=== PATIENT | female | born 1965 | race African-American/Black ===

== ENCOUNTER 2025-08-07 12:30 | Outpatient (AMB) | payer OTHER, SELFPAY ==
[2025-08-07 12:48] VITALS: BP 132/78; PULSE 74; O2SAT 96; BMI 37.9
--- NOTE | 2025-08-07 12:48 | A.OFFVIS_ITS ---
Vital Signs 08/07/25 12:48 Height 5 ft 5 in Weight 227 lb 8.273 oz BMI 37.9 BP 132/78 Blood Pressure Location Lt brachial Position Sitting Pulse 74 Pulse Source Pulse Oximeter Pulse Oximetry (%) 96 Oxygen Delivery Method Room Air Intake Visit Reasons: Joint pain elev esr Intake Note: Patient is a new patient externally referred by Hubert Henry for joint pain/elevated ESR. She states the pain is everywhere for years, she is taking Gabapentin prescribed by PCP. Endocrinology Nurse Required: No Accompanied by: Self / Same As Patient Allergies clonidine Adverse Reaction (Mild, Verified 07/24/25 11:50) insomnia/nightmares Medication List - Last Reconciled 08/07/25 by Noa Louis MD acetaminophen 650 mg PO Q6H PRN albuterol sulfate 90 mcg/actuation (Ventolin HFA) 2 puffs inhalation Q4-6H PRN atorvastatin (Lipitor) 40 mg PO DAILY buspirone 10 mg PO BID calcium carbonate (Ulises-Gest Antacid) 200 mg PO DAILY PRN cholecalciferol (vitamin D3) 25 mcg PO DAILY ferrous sulfate 325 mg PO DAILY folic acid 1 mg PO DAILY furosemide 20 mg PO DAILY levothyroxine 137 mcg PO QAM lorazepam 1 mg PO Q6H losartan 100 mg PO DAILY mecobalamin (vitamin B12) 1,000 mcg PO DAILY mirtazapine 15 mg PO BEDTIME potassium chloride ER 10 mEq PO BID pregabalin 200 mg PO BID quetiapine 50 mg PO TID HPI Comments Details: 60-year-old female wiht history of hypertension, hypothyroidism coming in for new patient evaluation for generalized body pain referred by her PCP. Of note she was in the ICU for six-months. She was admitted on Aug 03 2024 at [facility] and then was in rehab for 2 months She states the joint pain started 3 years ago, mostly in feet and hands. She also states she has pain in lower back, she had a surgery in the lower back 6 years ago at [facility]. She also had pain in shoulders and hips. undergoing OT for shoulders Endorses morning stiffness in the shoulders mostly for 1 hour. She has alot of weakness in the muscles , difficulty walking. She states she has numbness and tingling in the hands and feet with burning very bothersome. she cannot sleep at night with multiple nighttime awakenings. She has not tried prednisone. She tried naproxen for 7 days which helped.She takes pregabalin 200mg bid Joint pain has been getting worse in the past year. ros: no oral ulcers, no photosensitivity endorses hairfall, no IBD no dry eyes , she endorses dry mouth. No Raynaud's phenomena no blood clots, she endorses headaches 2x 3times a week, and also states her vision gets blurry she states it takes half an hour for headache to go away , she reports when blood pressure is high she gets the headaches. lately headaches have subsided blood pressure is under control no jaw claudication FH: no family history of autoimmune disease Most notable labs include ESR 74, negative CRP, negative RICCO. Vital signs reviewed Physical Examination CONSTITUITIONAL Patient alert and cooperative. Well appearing and in no apparent painful distress HEENT Conjunctiva and sclera clear. No lymphadenopathy. CHEST/RESPIRATORY SYSTEM Normal respiratory effort and able to speak in complete sentences. Clear to auscultation bilaterally. No crackles, rales, rhonchi, wheezes heard. CARDIAC SYSTEM Regular rate and rhythm. S1 and S2 heard no murmurs. temporal pulses intact bilaterally. MSK Hands * Right Hand: Able to make a fist. No swelling or tenderness to palpation of the MCPs, PIPs or DIPs. No deformities noted. * Left Hand: Able to make a fist. No swelling or tenderness to palpation of the MCPs, PIPs or DIPs. No deformities noted. 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 No swelling or TTP * Left Wrist: Full ROM to flexion and extension. No swelling or TTP Elbows * Right Elbow: Full ROM. No swelling or TTP. No TTP of the medial epicondyle. No TTP of the lateral epicondyle * Left Elbow: Full ROM. No swelling or TTP. No TTP of the medial epicondyle. No TTP of the lateral epicondyle Shoulders * Right shoulder: Limited range of motion of the right shoulder diminished strength of the right shoulder 4/5 * Left shoulder: Limited range of motion of the right shoulder diminished strength of the right shoulder 4/5 Hips * Right hip: Limited range of motion, limited range of motion on internal external rotation with pain * Left hip: Limited range of motion Hip bursa: Mild tenderness elicited bilaterally Knees * Right knee: Limited range of motion no swelling noted * Left knee: Limited range of motion no swelling noted Ankles * Right ankle: Good ankle dorsiflexion and plantar flexion. No swelling. No TTP of the ankle joint * Left ankle: Good ankle dorsiflexion and plantar flexion. No swelling. No TTP of the ankle joint Feet * Right foot: Negative squeeze test * Left foot: Negative squeeze test Tender points? * fibromyalgia tender points positive bilateral trapezius, supraspinatus, chest wall tenderness elicited, inner elbow tenderness and inner knee tenderness elicited SKIN No rashes PFSH Medical History (Updated 08/07/25 @ 13:41 by Noa Louis MD) Muscle spasm Muscle weakness Nausea Cough Shortness of breath Excessive thirst Internal bleeding Night sweats Weakness Fatigue Swollen leg Surgical History (Updated 08/07/25 @ 12:58 by Tiffani Sheridan CMA) Hx of abdominal surgery Family History (Updated 08/07/25 @ 12:59 by Tiffani Sheridan CMA) Mother Diabetes Social History Alcohol intake: current Alcohol intake frequency: holidays/special occasions only Patient Tobacco Use Status: Current everyday Tobacco user Tobacco use type: Cigarette e-Cigarette/Vaping Use: Never Used Physical Exam Vital Signs: BMI result Body Mass Index 37.9 Assessment & Plan Assessment & Plan (1) Polyarthralgia: Code(s): M25.50 - Pain in unspecified joint Category: Medical Plan: Patient presents with generalized joint aches, joint pain is mostly located in the hands, PIPs MCPs, bilateral shoulders, lower back, hips, and knees along with pain in the feet. Patient reports that she has numbness tingling and burning in the hands and feet. Differential diagnosis of this include inflammatory causes of joint pain like RA, PMR versus noninflammatory causes like OA and wear and tear arthritis. She was also in the ICU for 6 months, she may have post ICU muscle weakness She also has a component of fibromyalgia given her poor sleep and diffuse tender points on physical exam. Questions for GCA were also asked which were negative For further evaluation, we will obtain x-rays of her hands bilaterally, shoulders bilaterally and x-rays of her SI joint . I will repeat inflammatory markers including ESR CRP, will obtain arthritis panel RF ,CCP ,uric acid, CK aldolase for further evaluation of her joint pain. Patient states that she had improvement with naproxen, I will prescribe her celecoxib 100 mg daily for relief of her joint pain. She is to continue scheduled pregabalin and acetaminophen as needed We will see her back in 3 weeks to discuss the results of her blood work and x- rays and further management (2) Muscle weakness: Code(s): M62.81 - Muscle weakness (generalized) Category: Medical (3) Fibromyalgia: Code(s): M79.7 - Fibromyalgia Category: Medical Plan Patient presents with generalized joint aches, joint pain is mostly located in the hands, PIPs MCPs, bilateral shoulders, lower back, hips, and knees along with pain in the feet. Patient reports that she has numbness tingling and burning in the hands and feet. Differential diagnosis of this include inflammatory causes of joint pain like RA, PMR versus noninflammatory causes like OA and wear and tear arthritis. She was also in the ICU for 6 months, she may have post ICU muscle weakness She also has a component of fibromyalgia given her poor sleep and diffuse tender points on physical exam. Questions for GCA were also asked which were negative For further evaluation, we will obtain x-rays of her hands bilaterally, shoulders bilaterally and x-rays of her SI joint I will repeat inflammatory markers including ESR CRP, will obtain arthritis panel RF ,CCP ,uric acid, CK aldolase for further evaluation of her joint pain. Patient states that she had improvement with naproxen, I will prescribe her celecoxib 100 mg daily for relief of her joint pain. She is to continue scheduled pregabalin and acetaminophen as needed We will see her back in 3 weeks to discuss the results of her blood work and x- rays and further management Orders: Orders Erythrocyte Sedimentation Rate Today M25.50 - Pain in unspecified joint Cyclic Citrullinated Peptide Today R76.0 - Raised antibody titer XR Hand Bilat min 3v Today M25.50 - Pain in unspecified joint XR sacroiliac joint min 3V Today M25.50 - Pain in unspecified joint XR Shoulder Osmin min 2V Today M25.50 - Pain in unspecified joint Aldolase Today M25.50 - Pain in unspecified joint, M62.81 - Muscle weakness (generalized) C Reactive Protein Today M25.50 - Pain in unspecified joint Complete Blood Count Auto Diff Today M25.50 - Pain in unspecified joint Comprehensive Met. Panel Today M25.50 - Pain in unspecified joint Uric Acid Today M25.50 - Pain in unspecified joint Rheumatoid Factor Today R76.0 - Raised antibody titer Creatine Kinase Total Today M62.81 - Muscle weakness (generalized) Thyroid Stimulating Hormone Today R76.0 - Raised antibody titer Thyroid Peroxidase Antibodies Today R76.0 - Raised antibody titer Thyroglobulin Antibodies Today R76.0 - Raised antibody titer Coding Level of Care Code New Pt Level 4 (82028) Diagnoses Polyarthralgia M25.50 Muscle weakness M62.81 Fibromyalgia M79.7
== END 2025-08-07 13:34 | disposition home or self-care (01) ==
LOC: HO.RHES 12:31
PROVIDERS: PCP Internal Medicine; Visit Provider Student in an Organized Health Care Education/Training Program
DX: M25.50 Pain in unspecified joint (principal); M62.81 Muscle weakness (generalized); M79.7 Fibromyalgia
CPT/HCPCS: 99204

== ENCOUNTER 2025-08-07 12:30 | Outpatient (REF) | payer OTHER, SELFPAY ==
[2025-08-07 18:12] LABS: MANUAL DIFF FLAG NO
[2025-08-07 18:20] LABS: Hematocrit 44.7 % (37.0-47.0); Hemoglobin 14.2 g/dl (12.0-16.0); Imm Gran Abs Auto 0.02 X10*3/uL (0.00-0.03); Imm Gran Pct Auto 0.3 % (0.0-0.4); Lymphocytes Absolute Auto 3.6 X10*3/uL (1.2-4.9); Mean Corpuscular HGB Conc 31.8 g/dl (31.0-35.0); Mean Corpuscular Hemoglobin 27.7 pg (27.0-33.0); Mean Corpuscular Volume 87.1 fL (80.0-98.0); NRBC Abs Auto 0.000 X10*3/uL (0.0-0.012); NRBC Pct Auto 0.0 /100WBC (0.0-0.2); Platelet Count 345 X10*3/uL (160-400); Red Blood Count 5.13 X10*6/uL (4.20-5.50); White Blood Count 7.0 X10*3/uL (4.8-10.8)
[2025-08-07 18:42] LABS: Alanine Aminotransferase 18 U/L (0-31); Albumin Level 4.1 g/dL (3.5-5.0); Alkaline Phosphatase 184 U/L (39-117); Anion Gap 12 (12-20); Aspartate Amino Transferase 31 U/L (5-31); Blood Urea Nitrogen 22 mg/dL (9-16); Calcium 9.0 mg/dL (8.4-10.2); Carbon Dioxide 25 mmol/L (22-29); Chloride 108 mmol/L (96-108); Estimated Glomerular Filt Rate > 60; Potassium 5.4 mmol/L (3.3-5.1); Sodium 140 mmol/L (135-145); Total Protein 7.5 g/dL (6.5-8.0); Uric Acid 7.6 mg/dL (2.4-5.7)
[2025-08-07 19:02] LABS: Thyroid Stimulating Hormone 1.38 uIU/mL (0.32-4.0)
[2025-08-08 20:34] LABS: Thyroglobulin Antibodies <1 IU/mL (< or = 1)
== END 2025-08-07 12:31 | disposition home or self-care (01) ==
LOC: HO.HKASLDS 12:30
PROVIDERS: PCP Internal Medicine; Visit Provider Student in an Organized Health Care Education/Training Program
DX: M25.50 Pain in unspecified joint (principal); M62.81 Muscle weakness (generalized); M79.7 Fibromyalgia; R76.0 Raised antibody titer
CPT/HCPCS: 36415; 80053; 82085; 82550; 84443; 84550; 85025; 85652; 86140; 86200; 86376; 86431; 86800; 99202

== ENCOUNTER 2025-08-10 10:06 | Outpatient (REF) | payer OTHER, SELFPAY ==
--- OUTSIDE RECORDS SUMMARY | 2025-06-03 16:00 | XMS_ITS ---
Author Organization [facility] Address [address] [place] [address] Care Team Providers Care Freelance Web Designer Name Role Phone Hubert Henry Primary Care [...] review and pick correct strength[facility]formula [facility]ion [facility]. If intended option is [...] review and pick correct strength-formula tion from [employer] options. If intended option is not shown, [...] review and pick correct strength-formula tion from [employer] options. If intended option is not shown, [...] review and pick correct strength-formula tion from [employer] options. If intended option is not shown, discontinue and re-order from Quick Search* Not-Taking Acetaminophen-Codeine 300-30 MG 1 tab(s) orally every 6 hours for 7 days 4 Not-Taking Cholecalciferol 25 MCG 1 TAB(S) ORALLY ONCE A DAY for 90 DAYS *Please review and pick correct strength-formula tion from [employer] options. If intended option is not shown, discontinue and re-order from Quick Search* 4 Not-Taking Protonix 40 MG 1 tab(s) orally twice a day for 30 days 4 Not-Taking Social History Sex Assigned At : Social History Observation Description Sex Assigned At Female Encounters Encounter Location Date Provider Diagnosis [address] [address] 06/03/2025 Provider Migration Chronic obstructive pulmonary disease, [...] review and p ick correct strength-formulation from [employer] options. If intended option is not shown, [...] Details Provider Name:Hubert Henry, 09/01/2025 10:20:00 AM, [address] [place] [address], [phone], Progress Notes * Sandra SANCHEZDOB:1965 ( 60 yo F)Acc No.[id number]:06/03/2025 Patient: Sandra KURTZ Provider: :1965 A ge:59 Y S ex:Female Date:06/03/2025 Address:[address] [place], [place] [phone] Pcp:Hubert Henry Subjective: * Chief Complaints: * [...] *Please review and pick correct strength-formulation from [employer] options. If intended option is not shown, [...] *Please review and pick correct strength-formulation from [employer] options. If intended option is not shown, [...] *Please review and pick correct strength-formulation from [employer] options. If intended option is not shown, [...] Electronic signature of Prov ider Migration on 08/10/2025 at 02:51 PM EST Sign off status: Pending * Provider: Date: 0 06/03/2025 Generated for Nury wing/Hamilton/Mona on: 10/10/2024 02:51 PM EST
--- NOTE | ~2025-08-10 | XR_ITS ---
EXAMINATION: XR SACROILIAC JOINTS CLINICAL INFORMATION: M25.50 - Pain in unspecified joint COMPARISON: None available. TECHNIQUE: 3 views of the sacroiliac joints FINDINGS: No fracture, dislocation, or suspicious bone lesion. In the SI joints demonstrate very mild degenerative arthritis without significant periarticular sclerosis or erosions. There is hardware fusing L5 and S1 without evidence of periprosthetic complication. There is no discrete soft tissue abnormality. 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 Electronically signed by: Juan Matias MD 08/10/2025 11:46 AM [facility]
--- NOTE | ~2025-08-10 | XR_ITS ---
EXAMINATION: X-ray bilateral hands CLINICAL INFORMATION: Pain COMPARISON: None TECHNIQUE: Bilateral knees each 3 views. FINDINGS: Right hand: Bone mineralization is decreased. No visible acute fracture or dislocation. No suspicious bony lesion. Alignment is anatomic. Mild joint space narrowing of some of the interphalangeal joints of the fingers. Question small marginal erosion in the proximal medial base of the fourth proximal phalanx. No abnormal soft tissue calcification. Left hand: Bone mineralization is decreased. No acute fracture or dislocation. No suspicious bony lesion. Mild narrowing of some of the interphalangeal joints of the fingers.. No osseous erosion. No abnormal soft tissue calcification. XR/XR Hand Bilat min 3v IMPRESSION: Right hand: 1. No acute findings 2. Mild arthritis. Possible small marginal erosion in the proximal base of the fourth proximal phalanx. Left hand: 1. No acute findings 2. Mild arthritis as above Electronically signed by: Kevin King MD 08/10/2025 04:26 PM EST
--- NOTE | ~2025-08-10 | XR_ITS ---
EXAMINATION: X-ray bilateral shoulders CLINICAL INFORMATION: Pain COMPARISON: None TECHNIQUE: Right shoulder 4 views. Left shoulder 4 views. FINDINGS: Right shoulder: Mild acromioclavicular arthritis. Mild superior positioning of the clavicle with respect to acromion could be related to degenerative changes, sprain injury. No acute fracture or dislocation. Glenohumeral joint space is maintained. No abnormal soft tissue calcification. Left shoulder: Moderate acromioclavicular arthritis. No acute fracture or dislocation. Mild inferior positioning of the humeral head with respect to glenoid. Glenohumeral joint space is maintained. No abnormal soft tissue calcification. No suspicious bony lesions. XR/XR Shoulder Osmin min 2V IMPRESSION: Right shoulder: No acute findings Mild acromioclavicular arthritis. Mild acromioclavicular alignment could be related to arthritis, sprain injury. Left shoulder: No acute findings. Moderate acromioclavicular arthritis Electronically signed by: Kevin King MD 08/10/2025 04:23 PM [facility]
--- OUTSIDE RECORDS SUMMARY | 2025-08-10 14:50 | XMS_ITS | Clinical Summary ---
Author Organization [facility] Address [address] [place] [address] Phone Care Team Providers Care Credit Operations Processor Name Role Phone Hubert Henry MD Primary Care Provider [phone] Allergies Active Allergy Reactions Criticality Noted Date Comments Dexmedetomidine Fever 09/16/2024 Medications albuterol HFA (PROAIR HFA ; PROVENTIL HFA ; VENTOLIN HFA) 90 mcg/actuation inhaler Inhale 2 puffs by mouth every 4 (four) hours if needed for wheezing or shortness of breath. 015 Active atorvastatin (LIPITOR) 40 mg tablet Take 1 tablet (40 mg total) by mouth 1 (one) time each day. Active Symbicort 160-4.5 mcg/actuation inhaler Inhale 2 puffs by mouth 2 (two) times a day. 023 Active Vitamin D3 25 mcg (1,000 unit) tablet Take 1 tablet (1,000 Units total) by mouth 1 (one) time each day. 024 Active cyanocobalamin (VITAMIN B-12) 1,000 mcg tablet Take 1 tablet (1,000 mcg total) by mouth 1 (one) time each day. 024 Active levothyroxine (SYNTHROID, LEVOTHROID) 137 mcg tablet Take 1 tablet (137 mcg total) by mouth 1 (one) time each day before breakfast. Active pantoprazole (PROTONIX) 40 mg EC tabletIndications: gastric ulcer Take 1 tablet (40 mg total) by mouth 2 (two) times a day. Active ammonium lactate (LAC-HYDRIN) 12 % lotion Apply topically if needed for dry skin. 2025 Active busPIRone (BUSPAR) 10 mg tablet Take 1 tablet (10 mg total) by mouth 3 (three) times a day. Active calcium carbonate (TUMS) 500 mg (200 mg elemental calcium) chewable tablet Chew 2 tablets (1,000 mg total) 4 (four) times a day if needed for indigestion. 2025 Active furosemide (LASIX) 20 mg tablet Take 1 tablet (20 mg total) by mouth 2 (two) times daily morning and afternoon. 2025 Active gabapentin (NEURONTIN) 300 mg capsule Take 1 capsule (300 mg total) by mouth every 8 (eight) hours. 2025 Active heparin sodium,porcine (heparin, UFH,) 5,000 unit/mL injectionIndicatio ns:Prophylaxis of Venous Thromboembolism Inject 1 mL (5,000 Units total) under the skin every 8 (eight) hours. Active lidocaine 4 % patch Apply 1 patch topically 1 (one) time each day. Active LORazepam (ATIVAN) 1 mg tablet Take 1 tablet (1 mg total) by mouth every 6 (six) hours if needed for anxiety for up to 10 days. Max Daily Amount: 4 mg Active ipratropium-albute roL (DUONEB) 0.5-2.5 mg/3 mL nebulizer solution Take 3 mL by nebulization 4 (four) times a day. 2025 Active mirtazapine (REMERON) 7.5 mg tablet Take 1 tablet (7.5 mg total) by mouth at bedtime. Active QUEtiapine (SEROquel) 50 mg tablet Take 1 tablet (50 mg total) by mouth 3 (three) times a day. Active thiamine (VITAMIN B-1) 500 mg tablet Take 1 tablet (500 mg total) by mouth 1 (one) time each day. 2025 Active folic acid (FOLVITE) 1 mg tablet Take 1 tablet (1 mg total) by mouth 1 (one) time each day. 025 2025 Active multivitamin tablet Take 1 tablet by mouth 1 (one) time each day. Active ergocalciferol (VITAMIN D-2) 1,250 mcg (50,000 unit) capsule Take 1 capsule (50,000 Units total) by mouth 1 (one) time per week. 12 each 2025 Active oxyCODONE (ROXICODONE) 5 mg immediate release tabletIndications: Wound infection after surgery Take 1 tablet (5 mg total) by mouth every 4 (four) hours if needed for moderate pain. Max Daily Amount: 30 mg 15 tablet 2024 Discontinued Active Problems Problem Noted Date Diagnosed Date Wound infection after surgery 11/21/2024 Morbid obesity due to excess calories ([facility] V24, [facility] V28) 11/08/2024 Acute on chronic anemia 09/14/2024 Colitis 09/14/2024 Aspiration pneumonia ([facility] V24, [facility] V28) 09/14/2024 Hypoalbuminemia due to prote in-calorie malnutrition ([facility] V24) 09/09/2024 Edema due to hypoalbuminemia 09/09/2024 Hyperchloremic metabolic acidosis 09/08/2024 Polyneuropathy associated wi critical illness ([facility] V24) 08/20/2024 Fatty liver 08/10/2024 Troponin level elevated 08/10/2024 On mechanically assisted albert tilation ([facility] V24, [facility] V28) 08/10/2024 Endotracheally intubated 08/10/2024 Acute pulmonary edema ([facility] V24, [facility] V28) 08/10/2024 Urinary tract infection, site not specified 07/22 Klebsiella infection 08/09/2024 Alcohol dependence ([facility] V24, [facility] V28) Septic shock ([facility] V24, [facility] V28) 08/04/20 Pneumoperitoneum 08/04/2024 Resolved Problems Problem Noted Date Diagnosed Date Resolved Date Malfunction of jejunostomy t ube ([facility] V24, [facility] V28) 10/29/2024 11/08/2024 ABLA (acute blood loss anemia) 09/14/2024 09/14/2024 Acute respiratory failure wi th hypoxemia ([facility] V24, [facility] V28) 08/10/2024 11/08/2024 Pyelonephritis 08/04/2024 11/08/2024 Transaminitis 08/04/2024 11/08/2024 NARCISO (acute kidney injury) ([facility] V24) 08/04/2024 11/08/2024 Encounters Date Type Department Care Team Description 07/27/2025 9:28 AM EST - 07/27/2025 11:59 PM EST Hospital Encounter [facility] [address] [place] [address] Encounter for screening mammogram for malignant neoplasm of breast Discharge Disposition: Home or Self Care 07/26/2025 4:00 PM EST Office Visit Bariatric Surgery [facility] [address] [phone] Yecenia Haynes MD S/P gastric bypass (Primary Dx); Hx of iron deficiency; Left lower quadrant abdominal pain; Diastasis recti; Constipation, unspecified constipation type 06/20/2025 Telephone Bariatric Surgery [address] [phone] Yecenia Haynes MD 06/19/2025 Telephone Gastroenterology [address] [phone] Kevin Guardado MD 06/16/2025 9:29 AM EDT - 06/16/2025 11:59 PM EDT Hospital Encounter [facility] CT Scan [address] [place] [phone] Incisional hernia, without obstruction or gangrene Discharge Disposition: Home or Self Care 05/30/2025 2:30 PM EDT Office Visit Bariatric Surgery - [address] [place] [address] Yecenia Haynes MD Incisional hernia, without obstruction or gangrene (Primary Dx); Abnormal laboratory test from Last 3 Months Immunizations Immunization Administration Dates Next Due Hepatitis B (Ldpsuxd-C-Waktr , Recombivax HB-Adult) 19yo and older 11/11/2022,02/20/2021 Influenza Quadrivalent, 0.5m l, preservative free (Fluarix; FluLaval; Fluzone) ages 6mo and older (Afluria) 3yo and older 08/28/2023,11/11/2022 Influenza trivalent, with pr eservative (Fluzone; Afluria) 6mo and older 08/28/2021 Surgical History Surgery Date Site/Laterality Comments HERNIA REPAIR PROCEDURE: HISTORICAL HERNIA REPAIR/ING OTHER SURGICAL HISTORY PROCEDURE: SC TX ECTOPIC ABDL GASTRIC BYPASS 09/21/2007 PROCEDURE: GASTRIC BYPASS FOR OBESIT OTHER SURGICAL HISTORY 07/22/2011 PROCEDURE: OUTSIDE PAP SMEAR BACK SURGERY 11/22/2015 PROCEDURE: HISTORICAL BACK SURGERY; COMMENT: L4-L5 (lowest disc space) decomp & fusion, Dr. Hanson TRACHEOSTOMY TUBE PLACEMENT OTHER SURGICAL HISTORY laparoscopic converted to open exploration with wedge resection of stomach and Feng patch as well as jejunostomy tube placement Medical History Medical History Date Comments SWAPNA (iron deficiency anemia) 03/20/2015 DX: SWAPNA (iron deficiency anemia); COMMENT: Gastric bypass 2008 Insomnia 03/20/2015 DX:Insomnia History of syphilis 03/20/2015 DX:History o f syphilis Essential hypertension DX:Essent ial hypertension Family history of cardiovasc ular disease DX:Family history of cardiov ascular disease Epigastric pain DX:Epigastric pa in Cirrhosis of liver (CMS/HCC V24, CMS/HCC V28) DX:Cirrhosis of liver (HCC) Rectal bleeding DX:Rectal bleedi ng Functional dyspepsia DX:Function al dyspepsia Abdominal pain DX:Abdominal felicitas n Mild intermittent asthma, uncomplicated DX:Mild intermittent asthma, uncomplicated Hypothyroidism DX:Hypothyroidis m Pancreatitis DX:Pancreatitis Cirrhosis of liver (CMS/HCC V24, CMS/HCC V28) DX:Cirrhosis of liver (HCC) Constipation DX:Constipation Esophageal reflux DX:Esophageal reflux Hyperlipidemia Perforated ulcer (CMS/HCC V2 4, CMS/HCC V28) Family History Medical History Relation Name Comments Breast cancer Aunt 2 aunts matern al side Other: cancer thyroid Daughter ovaria n cancer Heart attack Father age 78 Diabetes Mother htn, depression Relation Name Status Comments Aunt Brother Alive Daughter Father Mother Alive Sister Alive Social History Tobacco Use Types Packs/Day Years Used Date Smoking Tobacco: Former Cigarettes Smokeless Tobacco: Never Tobacco Cessation:Counseling Given: Not Answered Alcohol Use Standard Drinks/Week Comments Not Currently 0 (1 standard drink = 0.6 oz pur e alcohol) Interpersonal Safety Answer Date Record ed Physical Abuse Unrecognized value 11/21/2024 Verbal Abuse Unrecognized value 11/21/2024 Comments No Sex and Gender Information Value Date Recorded Sex Assigned at Female 08/04/2024 12:43 PM EST Legal Sex Female 6:05 PM EST Gender Identity Female 08/04/2024 12:43 PM EST Sexual Orientation Straight 08/04/2024 12 :43 PM EST Obstetrics History Para Term AB IAB SAB Ectopic Multiple Livin g Live Births 4 Last Filed Vital Signs Vital Sign Reading Time Taken Comments Blood Pressure 130/82 07/26/2025 3:52 PM EST Pulse 80 07/26/2025 3:52 PM EST Temperature 36.7 C (98.1 F) 05/30/2025 2:23 PM EDT Respiratory Rate 20 12/01/2024 8:29 AM EDT Oxygen Saturation 98% 12/01/2024 8:29 AM EDT Inhaled Oxygen Concentration - - Weight 102 kg (225 lb) 07/27/2025 9:48 AM EST Height 165.1 cm (5' 5 ) 07/27/2025 9:48 AM EST Body Mass Index 37.44 07/27/2025 9:48 AM EST Plan of Treatment Upcoming Encounters Date Type Department Care Team (Late st Contact Info) Description 11/07/2025 9:00 AM EST Office Visit Bariatric Surgery - [address] [place] [address] Marianna Szymanski MD [address] [place] [phone] Health Maintenance Due Date Last Done Comments Colorectal Cancer Screening: Colonoscopy 1964 Cervical Cancer Screening: Pap Smear 1985 RSV Immunization Adult Patients (1 - Risk 50-74 years 1-dose series) 2014 Zoster Vaccines (1 of 2) 2014 Pneumococcal Vaccine: 50+ Years (2 of 2 - PCV) 07/06/2019 07/06/2018 Cholesterol Screening (Lipid Panel) 08/23/2022 HIV Screening 08/23/2022 Hepatitis C Screening 08/23/2022 Medicare Annual Wellness Visit 08/23/2022 Social Influencers of Health Screening 08/23/2022 Depression Screening 09/21/2024 COVID-19 Vaccine ( season) 2025 02/22/2021, 02/01/2021 Hypertension/CHF/CAD Annual BMP Blood Test 03/10/2026 03/10/2025, 11/30/2024, 11/29/2024, Additional history exists Breast Cancer Screening 07/27/2027 07/27/20, 01/02/2022, 01/05/2019 DTaP,Tdap,and Td Vaccines (2 - Td or Tdap) 12/08/2028 12/08/2018 Hepatitis A Vaccines Completed 05/21/2016, 09/25/19 Hepatitis B Vaccines Completed 11/11/2022, 02/20/2021, 02/08/2018 Influenza Vaccine Completed 06/27/2025, , 11/11/2022, Additional history exists HIB Vaccines Aged Out No longer eligi ble based on patient's age to complete this topic HPV Vaccines Aged Out No longer eligi ble based on patient's age to complete this topic IPV Vaccines Aged Out No longer eligi ble based on patient's age to complete this topic MMR Vaccines Aged Out No longer eligi ble based on patient's age to complete this topic Meningococcal ACWY Vaccine Aged Out N o longer eligible based on patient's age to complete this topic Meningococcal B Vaccine Aged Out No l onger eligible based on patient's age to complete this topic RSV Immunization Patients Under 20 months Aged Out No longer eligible based on patient's age to complete this topic Varicella Vaccines Aged Out No longer eligible based on patient's age to complete this topic Procedures Procedure Name Priority Date/Time Associated Diagnosis Comments MG MAMMO DIGITAL SCREENING W SANJAY BILAT Routine 07/27/2025 9:59 AM EST Encounter for screening mammogram for malignant neoplasm of breast CT ABDOMEN PELVIS WO CONTRAST Routine 06/16/2025 9:38 AM EDT Incisional hernia, without obstruction or gangrene VITAMIN D 25 HYDROXY Routine 05/30/2025 3:02 PM EDT Abnormal laboratory test ZINC Routine 05/30/2025 3:02 PM EDT Abnormal laboratory test IRON AND TIBC Routine 05/30/2025 3:02 PM EDT Abnormal laboratory test COMPREHENSIVE METABOLIC PANEL Routine 03/10/2025 11:30 AM EDT S/P gastric bypass from Last 3 Months or Most Recently Relevant to Health Maintenance Results * MG Mammo Digital Screening w Sanjay bilat (07/27/2025 9:59 AM EST) Anatomical Region Laterality Modality Breast Bilateral Mammography 07/27/2025 10:0 4 AM EST Impressions 07/27/2025 11:03 AM EST Benign. BI-RADS CATEGORY: 2 - BENIGN RECOMMENDATION: Screening bilateral mammogram is recommended in 1 year. Mammo Location: [facility], [address] [place] [address], [id number], . -------- FINAL REPORT -------- Dictated By: Sivakumar Alatorre Dictated Date: 07/27/2025 10:04 ET Assigned Physician: Sivakumar Alatorre Reviewed and Electronically Signed By: Sivakumar Alatorre Signed Date: 07/27/2025 11:03 ET Workstation ID: [id number] Transcribed By: Self Edit Transcribed Date: 07/27/2025 10:05 ET Narrative 07/27/2025 11:03 AM EST CLINICAL: 60 years old, Female, routine annual exam. COMPARISON: 01/02/2022. TECHNIQUE: Bilateral MLO and CC views were obtained digitally with 3-D mammogram (digital breast tomosynthesis). Computer-aided detection was utilized in evaluation of this exam (CAD). FINDINGS: Multifocal atherosclerotic and secretory calcifications. No suspicious mass or architectural distortion. No suspicious calcification. There has been no significant change from prior exam(s). BREAST DENSITY: A - The breasts are almost entirely fatty. Procedure Note Sivakumar Alatorre MD - 07/27/2025 CLINICAL: 60 years old, Female, routine annual exam. COMPARISON: 01/02/2022. TECHNIQUE: Bilateral MLO and CC views were obtained digitally with 3-Dmammogram (digital breast tomosynthesis). Computer-aided detection wasutilized in evaluation of this exam (CAD). FINDINGS: Multifocal atherosclerotic and secretory calcifications. No suspicious mass or architectural distortion. No suspiciouscalcification. There has been no significant change from prior exam(s). BREAST DENSITY: A - The breasts are almost entirely fatty. IMPRESSION: Benign. BI-RADS CATEGORY: 2 - BENIGN RECOMMENDATION: Screening bilateral mammogram is recommended in 1 year. Mammo Location: [facility], [address] [place] [address], [id number], . -------- FINAL REPORT -------- Dictated By: Sivakumar Alatorre Dictated Date: 07/27/2025 10:04 ET Assigned Physician: Sivakumar Alatorre Reviewed and Electronically Signed By: Sivakumar Alatorre Signed Date: 07/27/2025 11:03 ET Workstation ID: [id number] Transcribed By: Self Edit Transcribed Date: 07/27/2025 10:05 ET us Hubert Henry MD IMG BI PROCEDURES Final Resul t * CT Abdomen Pelvis wo Contrast (06/16/2025 9:38 AM EDT) Anatomical Region Laterality Modality Body Computed Tomogra phy 06/21/2025 12:0 2 PM EDT Impressions 06/21/2025 12:07 PM EDT 1. No acute abnormality in the abdomen or pelvis. 2. Diverticulosis without evidence for acute diverticulitis. 3. Moderate stool burden throughout the colon. 4. Post surgical abdomen without obstruction. -------- FINAL REPORT -------- Dictated By: Ari Michele Dictated Date: 06/21/2025 12:02 ET Assigned Physician: Ari Michele Reviewed and Electronically Signed By: Ari Michele Signed Date: 06/21/2025 12:07 ET Workstation ID: [id number] Transcribed By: Self Edit Transcribed Date: 06/21/2025 12:02 ET Narrative 06/21/2025 12:07 PM EDT PROCEDURE: CT Abdomen and Pelvis without contrast INDICATION: Abdominal pain, hernia suspected TECHNIQUE: CT of the abdomen and pelvis without contrast. Multiplanar reformats. The examination was performed utilizing dose reduction techniques. DLP: 1798 mGy/cm COMPARISON: No priors available. FINDINGS: LOWER THORAX: Lung bases are clear. HEPATOBILIARY: No focal liver lesions. No cholelithiasis or biliary duct dilatation. SPLEEN: No splenomegaly. PANCREAS: No focal mass or ductal dilatation. ADRENALS: No nodules. KIDNEYS/URETERS: No hydronephrosis, stones, or solid mass. PELVIC ORGANS/BLADDER: Uterine fibroids. PERITONEUM / RETROPERITONEUM: No ascites or free air. No retroperitoneal lymphadenopathy. VESSELS: Scattered atherosclerotic calcifications throughout the aorta and its major branches. No aneurysm. GI TRACT: Diverticulosis without evidence for acute diverticulitis. Moderate stool burden throughout the colon. Normal caliber appendix. Prior small bowel resections of small bowel obstruction. Cristina-en-Y gastric bypass. BONES AND SOFT TISSUES: Scattered degenerative changes seen throughout the bones. Diastases recti upper abdomen. Procedure Note Ari Michele MD - 06/21/2025 PROCEDURE: CT Abdomen and Pelvis without contrast INDICATION: Abdominal pain, hernia suspected TECHNIQUE: CT of the abdomen and pelvis without contrast. Multiplanarreformats. The examination was performed utilizing dose reductiontechniques. DLP: 1798 mGy/cm COMPARISON: No priors available. FINDINGS: LOWER THORAX: Lung bases are clear. HEPATOBILIARY: No focal liver lesions. No cholelithiasis or biliary ductdilatation. SPLEEN: No splenomegaly. PANCREAS: No focal mass or ductal dilatation. ADRENALS: No nodules. KIDNEYS/URETERS: No hydronephrosis, stones, or solid mass. PELVIC ORGANS/BLADDER: Uterine fibroids. PERITONEUM / RETROPERITONEUM: No ascites or free air. No retroperitoneallymphadenopathy. VESSELS: Scattered atherosclerotic calcifications throughout the aorta andits major branches. No aneurysm. GI TRACT: Diverticulosis without evidence for acute diverticulitis.Moderate stool burden throughout the colon. Normal caliber appendix.Prior small bowel resections of small bowel obstruction. Vqwx-xw-Khyvnsha bypass. BONES AND SOFT TISSUES: Scattered degenerative changes seen throughout thebones. Diastases recti upper abdomen. IMPRESSION: 1. No acute abnormality in the abdomen or pelvis. 2. Diverticulosis without evidence for acute diverticulitis. 3. Moderate stool burden throughout the colon. 4. Post surgical abdomen without obstruction. -------- FINAL REPORT -------- Dictated By: Ari Michele Dictated Date: 06/21/2025 12:02 ET Assigned Physician: Ari Michele Reviewed and Electronically Signed By: Ari Michele Signed Date: 06/21/2025 12:07 ET Workstation ID: [id number] Transcribed By: Self Edit Transcribed Date: 06/21/2025 12:02 ET Yecenia Haynes MD IMG CT PROCEDURES Final Result * Iron and TIBC (05/30/2025 3:02 PM EDT) Iron 106 40 - 150 mcg/dL LAB CHEMISTRY METHOD 05/30/2025 7:42 PM EDT [facility] TIBC 322 250 - 450 mcg/dL LAB CHEMISTRY METHOD 05/30/2025 7:42 PM EDT [facility] Iron Saturation 33 15 - 50 % LAB CHEMISTRY METHOD 05/30/2025 7:42 PM EDT [facility] Blood Venous blood specimen / Unknown Venipuncture / Unknown 05/30/2025 3:02 PM EDT 05/30/2025 3:02 PM EDT us Yecenia Haynes MD LAB BLOOD ORDERABLES Fi nal Result Performing Organization Address City/[facility] [address] [facility] Co de Phone Number [facility] [address] [place] [address], * Zinc (05/30/2025 3:02 PM EDT) Zinc 90 60 - 130 ug/dL 06/02/2025 10:25 AM EDT [facility] Comment: Elevated results may be due to sample collected in a non-certified trace element-free tube. This test was developed and the performance characteristics determined by [facility]. It has not been cleared or approved by the FDA. The laboratory is regulated under CLIA as qualified to perform high-complexity testing. This test is used for patient testing purposes. It should not be regarded as investigational or for research. Test performed at [place] [place], [address] , [place] [address] Yudith Geiger MD, PhD - Wet Finisher Blood Venous blood specimen / Unknown Venipuncture / Unknown 05/30/2025 3:02 PM EDT 05/30/2025 3:02 PM EDT Yecenia Haynes MD LAB BLOOD ORDERABLES Fi nal Result Performing Organization Address [facility] [address]/[facility] Co de Phone Number [facility] [address] [place] [address] * Vitamin D 25 hydroxy (05/30/2025 3:02 PM EDT) Vit D, 25-Hydroxy 48.4 30.0 - 80.0 ng/mL LAB CHEMISTRY METHOD 05/30/2025 10:04 PM EDT [facility] Blood Venous blood specimen / Unknown Venipuncture / Unknown 05/30/2025 3:02 PM EDT 05/30/2025 3:02 PM EDT us Yecenia Haynes MD LAB BLOOD ORDERABLES Fi nal Result [facility] [address] [place] [address], * (ABNORMAL) Comprehensive metabolic panel (03/10/2025 11:30 AM EDT) Sodium 143 133 - 145 mmol/L LAB CHEMISTRY METHOD 03/10/2025 4:46 PM EDT [facility] Potassium 4.0 3.5 - 5.5 mmol/L LAB CHEMISTRY METHOD 03/10/2025 4:46 PM EDT [facility] Chloride 111(H) 96 - 110 mmol/L LAB CHEMISTRY METHOD 03/10/2025 4:46 PM [facility] CO2 24 21 - 32 mmol/L LAB CHEMISTRY METHOD 03/10/2025 4:46 PM [facility] Anion Gap 8 3 - 11 LAB CHEMISTRY METHOD 03/10/2025 4:46 PM [facility] Glucose 88 70 - 100 mg/dL LAB CHEMISTRY METHOD 03/10/2025 4:46 PM [facility] BUN 13 5 - 25 mg/dL LAB CHEMISTRY METHOD 03/10/2025 4:46 PM [facility] Creatinine 0.61 0.50 - 1.10 mg/dL LAB CHEMISTRY METHOD 03/10/2025 4:46 PM [facility] eGFR 102 >=60 mL/min/1. 73m2 LAB CHEMISTRY METHOD 03/10/2025 4:46 PM [facility] Comment:Calculation based on the Chronic Kidney Disease Epidemiology Collaboration (CKD-EPI) equation refit without adjustment for race. BUN/Creatinine Ratio 21.3 LAB CHEMISTRY METHOD 03/10/2025 4:46 PM [facility] Calcium 9.1 8.5 - 10.5 mg/dL LAB CHEMISTRY METHOD 03/10/2025 4:46 PM [facility] AST (SGOT) 22 10 - 42 unit/L LAB CHEMISTRY METHOD 03/10/2025 4:46 PM EDT [facility] ALT (SGPT) 23 10 - 60 unit/L LAB CHEMISTRY METHOD 03/10/2025 4:46 PM EDT [facility] Alkaline Phosphatase 104 42 - 121 unit/L LAB CHEMISTRY METHOD 03/10/2025 4:46 PM EDT [facility] Total Protein 7.3 6.0 - 8.0 g/dL LAB CHEMISTRY METHOD 03/10/2025 4:46 PM EDT [facility] Albumin 3.3 3.2 - 5.0 g/dL LAB CHEMISTRY METHOD 03/10/2025 4:46 PM EDT [facility] Total Bilirubin 0.3 0.0 - 1.4 mg/dL LAB CHEMISTRY METHOD 03/10/2025 4:46 PM EDT [facility] Blood Venous blood specimen / Unknown Venipuncture / Unknown 03/10/2025 11:30 AM EDT 03/10/2025 11:30 AM EDT Yecenia Haynes MD LAB BLOOD ORDERABLES Fi nal Result [facility] [address] [place] [address], from Last 3 Months or Most Recently Relevant to Health Maintenance Insurance [facility] [employer] Member Subscriber Plan / Payer (Ef fective 2016-Present) Name:SANDRA MARTINS Relation to Subscriber:Self Name:Sandra Martins Payer ID:[id number] Group ID:[id number] Type:Not on file Address: [address] [facility] [place] [address] Advance Directives Documents on File Type Date Recorded 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 Advance Directives and Living Will 12/02/2024 11:05 AM PROXY Advance Directives and Living Will 11/21/2024 2:16 PM PROXY Advance Directives and Living Will 11/21/2024 1:22 PM [facility] Proxy Advance Directives and Living Will 11/12/2024 12:07 PM PROXY Advance Directives and Living Will 09/25/2024 10:32 AM Advance Directives and Living Will 09/18/2024 12:54 PM Advance Directives and Living Will 09/18/2024 12:20 PM * Full Code - Default (Latest Code Status on File) Date Activated Date Inactivated Comments 11/21/2024 12:34 AM 12/01/2024 12:52 PM This is ord er is used when code status has not been discussed with the patient, or code status is otherwise unknown/unconfirmed To update the patient's code status, place a code status order. Do not modify or discontinue any currently active code status orders. * Full Code - Confirmed Date Activated Date Inactivated Comments 08/04/2024 8:54 PM 11/08/2024 5:30 PM This code s tatus was ascertained in the following way: Code status discussion: discussion with patient To update the patient's code status, place a code status order. Do not modify or discontinue any currently active code status orders. * Full Code - Default Date Activated Date Inactivated Comments 08/04/2024 6:49 PM 08/04/2024 8:54 PM This is or venkat is used when code status has not been discussed with the patient, or code status is otherwise unknown/unconfirmed To update the patient's code status, place a code status order. Do not modify or discontinue any currently active code status orders. Healthcare Agents on File Name Relationship Healthcare Agent Relationshi p Communication Ramona Greenfield Daughter Health Care Agent Salima Greenfield Relative First Alternate Health Care Agent Care Teams Credit Operations Processor Relationship Specialty Start Date End Date Hubert Henry MD [address] [place] [address] [place] PCP - General Internal Medicine 06/23/22
--- OUTSIDE RECORDS SUMMARY | 2025-08-10 14:51 | XMS_ITS | Encounter Summary ---
Author Organization [facility] Address [address] [place] [address] Care Team Providers Care Manufacturing Sales Representative Name Role Phone Hubert Henry MD Primary Care Provider Encounter Details Date Type Department Care Team (Late Contact Info) Description 03/17/2025 Lab Requisition [facility] - Main Lab [address] [facility] [place] [address] Hubert Henry MD [address] [place] [address] Frequency of micturition Social History Tobacco Use Types Packs/Day Years Used Date Smoking Tobacco: Former Cigarettes Smokeless Tobacco: Never Alcohol Use Standard Drinks/Week Comments Not Currently 0 (1 standard drink = 0.6 oz pur e alcohol) Interpersonal Safety Answer Date Record ed Physical Abuse Unrecognized value 11/21/2024 Verbal Abuse Unrecognized value 11/21/2024 Comments Unknown Sex and Gender Information Value Date Recorded Sex Assigned at Female 08/04/2024 12:43 PM EST Legal Sex Female 6:05 PM EST Gender Identity Female 08/04/2024 12:43 PM EST Sexual Orientation Straight 08/04/2024 12 :43 PM EST documented as of this encounter Plan of Treatment Upcoming Encounters Date Type Department Care Team (Late Contact Info) Description 11/07/2025 9:00 AM EST Office Visit Bariatric Surgery - [place] [address] [place] [address] Marianna Szymanski MD [address] [place] [phone] documented as of this encounter Procedures Procedure Name Priority Date/Time Associated Diagnosis Comments URINALYSIS WITH REFLEX MICROSCOPIC Routine 03/17/2025 12:00 AM EDT Frequency of micturition URINALYSIS WITH REFLEX MICROSCOPIC Routine 03/17/2025 12:00 AM EDT Frequency of micturition CULTURE URINE Routine 03/17/2025 12:00 AM EDT Frequency of micturition documented in this encounter Results * (ABNORMAL) Urinalysis with reflex microscopic (03/17/2025 12:00 AM EDT) Specific [place] Urine 1.014 1.003 - 1.030 LAB URINALYSIS - AUTOMATED METHOD 03/17/2025 8:35 PM [facility] pH, Urine 5.5 5.0 - 8.0 pH LAB URINALYSIS - AUTOMATED METHOD 03/17/2025 8:35 PM [facility] Leukocytes, Urine Moderate(A) Negative LAB URINALYSIS - AUTOMATED METHOD 03/17/2025 8:35 PM [facility] Nitrite, Urine Negative Negative LAB URINALYSIS - AUTOMATED METHOD 03/17/2025 8:35 PM [facility] Protein, Urine Negative <=Trace mg/dL LAB URINALYSIS - AUTOMATED METHOD 03/17/2025 8:35 PM [facility] Glucose, Urine Negative Negative mg/dL LAB URINALYSIS - AUTOMATED METHOD 03/17/2025 8:35 PM [facility] Ketones, Urine Negative Negative mg/dL LAB URINALYSIS - AUTOMATED METHOD 03/17/2025 8:35 PM EDT [facility] Urobilinogen , Urine 0.2 0.2 - 1.0 mg/dL LAB URINALYSIS - AUTOMATED METHOD 03/17/2025 8:35 PM [facility] Bilirubin, Urine Negative Negative LAB URINALYSIS - AUTOMATED METHOD 03/17/2025 8:35 PM [facility] Blood, Urine Negative Negative LAB URINALYSIS - AUTOMATED METHOD 03/17/2025 8:35 PM [facility] RBC, Urine 4.7(H) 0 - 4 /HPF LAB URINALYSIS - AUTOMATED METHOD 03/17/2025 8:35 PM [facility] WBC, Urine 24.3(H) 0 - 4 /HPF LAB URINALYSIS - AUTOMATED METHOD 03/17/2025 8:35 PM [facility] Squamous Epithelial, Urine 15 0 - 60 /LPF LAB URINALYSIS - AUTOMATED METHOD 03/17/2025 8:35 PM [facility] Bacteria, Urine Many(A) Negative /HPF LAB URINALYSIS - AUTOMATED METHOD 03/17/2025 8:35 PM [facility] Hyaline Casts, Urine 0.4 0 - 3 /LPF LAB URINALYSIS - AUTOMATED METHOD 03/17/2025 8:35 PM [facility] Urine Urine specimen obtained by clean catch procedure / Unknown 03/17/2025 03/17/2025 7:18 PM EDT us Hubert Henry MD LAB URINE ORDERABLES Final Re sult [facility] [address] [place] [address], [place] [phone] * (ABNORMAL) Culture urine (03/17/2025 12:00 AM EDT) Culture, Urine 50,000-100,000 CFU/mL Escherichia coli(A) EBONI 03/19/2025 12:13 PM EDT [facility] Urine Urine specimen obtained by clean catch procedure / Unknown 03/17/2025 03/17/2025 7:18 PM EDT Narrative Organism Antibiotic Method Susceptibility Escherichia coli Amoxicillin/Clavulanate EBONI 8 ug/ml: Susceptible Escherichia coli Ampicillin/Sulbactam EBONI 16 ug/ml: Intermediate Escherichia coli Piperacillin/Tazobactam EBONI <=4 ug/ml: Susceptible Escherichia coli Cefazolin (Urine) EBONI 4 ug/ml: Susceptible Escherichia coli Cefoxitin EBONI <=4 ug/ml: Susceptible Escherichia coli Ceftazidime EBONI <=0.5 ug/ml: Susceptible Escherichia coli Ceftriaxone EBONI <=0.25 ug/ml: Susceptible Escherichia coli Cefepime EBONI <=0.12 ug/ml: Susceptible Escherichia coli Meropenem EBONI <=0.25 ug/ml: Susceptible Escherichia coli Amikacin EBONI 2 ug/ml: Susceptible Escherichia coli Gentamicin EBONI >=16 ug/ml: Resistant Escherichia coli Ciprofloxacin EBONI <=0.06 ug/ml: Susceptible Escherichia coli Levofloxacin EBONI <=0.12 ug/ml: Susceptible Escherichia coli Nitrofurantoin EBONI <=16 ug/ml: Susceptible Escherichia coli Trimethoprim/Sulfamethoxazole EBONI >=320 ug/ml: Resistant Hubert Henry MD LAB MICROBIOLOGY - GENERAL OR DERABLES Final Result Performing Organization Address City/State/[facility] Co de Phone Number [facility] [address] [place] [address], documented in this encounter Visit Diagnoses Diagnosis Frequency of micturition Urinary frequency documented in this encounter Care Teams Manufacturing Sales Representative Relationship Specialty Start Date End Date Hubert Henry MD [address] [place] [address] PCP - General Internal Medicine 06/23/22 documented as of this encounter
--- OUTSIDE RECORDS SUMMARY | 2025-08-10 14:51 | XMS_ITS | Encounter Summary ---
Author Organization [facility] Address [address] [place] [address] Care Team Providers Care Research Animal Facility Supervisor Name Role Phone Hubert Henry MD Primary Care Provider [phone] Encounter Details Date Type Department Care Team ([facility] Contact Info) Description 03/21/2025 Lab Requisition [facility] - Main Lab [address] [place] [address] Hubert Henry MD [address], [place] Polymyalgia rheumatica (CMS/HCC V24) Social History Tobacco Use Types Packs/Day Years [...] Upcoming Encounters Date Type Department Care Team ([facility] Contact Info) Description 11/07/2025 9:00 AM EST Office Visit Bariatric Surgery - [place] [address] [place] [address] Marianna Szymanski MD [address] [place] [phone] documented as of this encounter Procedures Procedure Name Priority Date/Time Associated Diagnosis Comments CENTROMERE ANTIBODIES Routine 03/21/2025 9:41 AM EDT Polymyalgia rheumatica ([facility] V24) RICCO IFA WITH TITER AND PATTERN Routine 03/21/2025 9:41 AM EDT Polymyalgia rheumatica ([facility] V24) CBC WITH AUTO DIFFERENTIAL Routine 03/21/2025 9:41 AM EDT Polymyalgia rheumatica ([facility] V24) SEDIMENTATION RATE Routine 03/21/2025 9: 41 AM EDT Polymyalgia rheumatica ([facility] V24) CBC AND DIFFERENTIAL Routine 03/21/2025 9:41 AM EDT Polymyalgia rheumatica ([facility] V24) C-REACTIVE PROTEIN Routine 03/21/2025 9: 41 AM EDT Polymyalgia rheumatica ([facility] V24) documented in this encounter Results * (ABNORMAL) CBC auto differential (03/21/2025 9:41 AM EDT) WBC 5.9 4.8 - 10.8 K/mcL LAB HEMETOLOGY METHOD 03/21/2025 5:25 PM EDT [facility] RBC 4.70 3.80 - 4.80 M/mcL LAB HEMETOLOGY METHOD 03/21/2025 5:25 PM EDT [facility] Hemoglobin 13.1 11.5 - 16.0 g/dL LAB HEMETOLOGY METHOD 03/21/2025 5:25 PM EDT [facility] Hematocrit 41.9 35.0 - 47.0 % LAB HEMETOLOGY METHOD 03/21/2025 5:25 PM EDT [facility] MCV 88.6 79.0 - 98.0 FL LAB HEMETOLOGY METHOD 03/21/2025 5:25 PM EDT [facility] MCH 27.7 27.0 - 32.0 pcg LAB HEMETOLOGY METHOD 03/21/2025 5:25 PM EDT [facility] MCHC 31.3(L) 32.0 - 37.0 g/dL LAB HEMETOLOGY METHOD 03/21/2025 5:25 PM EDT [facility] RDW 13.1 11.0 - 15.0 % LAB [facility]OLOGY [facility] Platelets 290 130 - 400 K/mcL LAB HEMETOLOGY METHOD 03/21/2025 5:25 PM EDT [facility] MPV 12.5(H) 7.0 - 11.0 FL LAB HEMETOLOGY METHOD 03/21[facility]2025 [facility] NRBC 0.0 <1.0 % LAB HEMETOLOGY METHOD 03/21/2025 5[facility] NRBC Absolute 0.00 <0.10 K/mcL LAB HEMETOLOGY METHOD 03/21/2025 5:25 PM EDT [facility] Neutrophils Relative 30.8 % LAB HEMETOLOGY METHOD 03/21/2025 5:25 PM EDT [facility] Lymphocytes Relative 56.1 % LAB HEMETOLOGY METHOD 03/21/2025 5:25 PM EDT [facility] Monocytes Relative 9.8 % LAB HEMETOLOGY METHOD 03/21/2025 5:25 PM EDT [facility] Eosinophils Relative 2.4 % LAB HEMETOLOGY METHOD 03/21/2025 5:25 PM EDT [facility] Basophils Relative 0.7 % LAB HEMETOLOGY METHOD 03/21/2025 5:25 PM EDT [facility] Immature Granulocytes Relative 0.2 % LAB HEMETOLOGY METHOD 03/21/2025 5:25 PM EDT [facility] Neutrophils Absolute 1.82 1.50 - 7.00 K/mcL LAB HEMETOLOGY METHOD 03/21/2025 5:25 PM EDT [facility] Lymphocytes Absolute 3.31 1.00 - 5.00 K/mcL LAB HEMETOLOGY METHOD 03/21/2025 5:25 PM EDT [facility] Monocytes Absolute 0.58 0.20 - 1.00 K/mcL LAB HEMETOLOGY METHOD 03/21/2025 5:25 PM EDT [facility] Eosinophils Absolute 0.14 0.00 - 0.50 K/mcL LAB HEMETOLOGY METHOD 03/21/2025 5:25 PM EDT [facility] Basophils Absolute 0.04 0.00 - 0.20 K/mcL LAB HEMETOLOGY METHOD 03/21/2025 5:25 PM EDT [facility] Immature Granulocytes Absolute 0.01 0.00 - 0.03 K/mcL LAB HEMETOLOGY METHOD 03/21/2025 5:25 PM EDT [facility] Blood Venous blood specimen / Unknown 03/21/2025 9:41 AM EDT 03/21/2025 5:13 PM EDT us Hubert Henry MD LAB BLOOD ORDERABLES Final Re sult [facility] [address] [place] [address], * [place]IC[place] IFA with titer and pattern (03/21/2025 9:41 AM EDT) RICCO Negative Negative 03/23/2025 11:41 AM EDT [facility] Blood Venous blood specimen / Unknown 03/21/2025 9:41 AM EDT 03/21/2025 5:13 PM EDT Hubert Henry MD LAB BLOOD ORDERABLES Final Re sult [facility] [address] [place] [address], [place] [phone] * Centromere antibodies (03/21/2025 9:41 AM EDT) Pathologist [facility] Centromere Antibody 0.7 <7.0 U/mL 03/27/2025 11:34 AM EDT [facility] Comment: INTERPRETATION: Negative Test performed at [facility], [address], [place] [address] Yudith Geiger MD, PhD - Psychotherapist Counselor Blood Venous blood specimen / Unknown 03/21/2025 9:41 AM EDT 03/21/2025 5:13 PM EDT Hubert Henry MD LAB BLOOD ORDERABLES Final Re sult Performing Organization Address [facility]/ZIP Co de Phone Number [facility] [address] [place] [address] * C-reactive protein (03/21/2025 9:41 AM EDT) [facility] C-Reactive Protein <0.29 <=0.50 mg/dL LAB CHEMISTRY METHOD 03/21/2025 6:25 PM EDT [facility] Blood Venous blood specimen / Unknown 03/21/2025 9:41 AM EDT 03/21/2025 5:13 PM EDT Hubert Henry MD LAB BLOOD ORDERABLES Final Re sult [facility] [address] [place] [address], [place] [phone] * (ABNORMAL) Sedimentation rate (03/21/2025 9:41 AM EDT) Sed Rate 74(H) 0 - 30 mm/hr LAB HEMETOLOGY METHOD 03/21/2025 5:47 PM EDT [facility] Blood Venous blood specimen / Unknown 03/21/2025 9:41 AM EDT 03/21/2025 5:13 PM EDT Huebrt Henry MD LAB BLOOD ORDERABLES Final Re sult Performing Organization Address [facility] Co de Phone Number [facility] [address] [place] [address], documented in this encounter Visit Diagnoses Diagnosis Polymyalgia rheumatica (CMS/HCC V24) Polymyalgia rheumatica documented in this encounter Care Teams Research Animal Facility Supervisor Relationship Specialty Start Date End Date Hubert Henry MD [address], [place] PCP - General Internal Medicine 06/23/22 documented as of this encounter
--- OUTSIDE RECORDS SUMMARY | 2025-08-10 14:51 | XMS_ITS | Encounter Summary ---
Author Organization [facility] Address [address] [place] [address] Care Team Providers Care Artist And Repertoire Manager Name Role Phone Hubert Henry MD Primary Care Provider [phone] Encounter Details Date Type Department Care Team (Late st Contact Info) Description 04/11/2025 Lab Requisition [facility] - Main Lab [address] [facility] [place] [address] Hubert Henry MD [address] [place] [address] Dysuria Social History Tobacco Use Types Packs/Day Years [...] AM EST Office Visit Bariatric Surgery - [place] [address] [place] [address] Marianna Szymanski MD [address] [place] [phone] documented as of this encounter Procedures Procedure Name Priority Date/Time Associated Diagnosis Comments URINALYSIS WITH REFLEX MICROSCOPIC Routine 04/11/2025 4:30 PM EDT Dysuria URINALYSIS WITH REFLEX MICROSCOPIC Routine 04/11/2025 4:30 PM EDT Dysuria CULTURE URINE Routine 04/11/2025 4:30 PM EDT Dysuria documented in this encounter Results * Urinalysis with reflex microscopic (04/11/2025 4:30 PM EDT) Specific [place] Urine 1.018 1.003 - 1.030 LAB URINALYSIS - AUTOMATED METHOD 04/11/2025 4:48 PM [facility] pH, Urine 5.5 5.0 - 8.0 pH LAB URINALYSIS - AUTOMATED METHOD 04/11/2025 4:48 PM [facility] Leukocytes, Urine Negative Negative LAB URINALYSIS - AUTOMATED METHOD 04/11/2025 4:48 PM [facility] Nitrite, Urine Negative Negative LAB URINALYSIS - AUTOMATED METHOD 04/11/2025 4:48 PM [facility] Protein, Urine Negative <=Trace mg/dL LAB URINALYSIS - AUTOMATED METHOD 04/11/2025 4:48 PM [facility] Glucose, Urine Negative Negative mg/dL LAB URINALYSIS - AUTOMATED METHOD 04/11/2025 4:48 PM [facility] Ketones, Urine Negative Negative mg/dL LAB URINALYSIS - AUTOMATED METHOD 04/11/2025 4:48 PM [facility] Urobilinogen, Urine 0.2 0.2 - 1.0 mg/dL LAB URINALYSIS - AUTOMATED METHOD 04/11/2025 4:48 PM EDT [facility] Bilirubin, Urine Negative Negative LAB URINALYSIS - AUTOMATED METHOD 04/11/2025 4:48 PM EDT [facility] Blood, Urine Negative Negative LAB URINALYSIS - AUTOMATED METHOD 04/11/2025 4:48 PM EDT [facility] Urine Urine specimen obtained by clean catch procedure / Unknown Non-blood Collection / Unknown 04/11/2025 4:30 PM EDT 04/11/2025 4:32 PM EDT us Hubert Henry MD LAB URINE ORDERABLES Final Re sult Performing Organization Address City/[facility]/ZIP Co de Phone Number [facility] [address] [place] [address], [place] [phone] * Culture urine (04/11/2025 4:30 PM EDT) Culture, Urine 10,000-49,000 CFU/mL Mixed bacterial morphotypes present suggestive of possible contamination during collection. Suggest appropriate recollection if clinically indicated. 04/12/2025 3:24 PM EDT [facility] Urine Urine specimen obtained by clean catch procedure / Unknown Non-blood Collection / Unknown 04/11/2025 4:30 PM EDT 04/11/2025 4:32 PM EDT Hubert Henry MD LAB MICROBIOLOGY - GENERAL OR DERABLES Edited Result - Final Performing Organization Address City/[facility]/ZIP Co de Phone Number [facility] [address] [place] [address], [place] [phone] documented in this encounter Visit Diagnoses Diagnosis Dysuria documented in this encounter Care Teams Artist And Repertoire Manager Relationship Specialty Start Date End Date Hubert Henry MD [address] [place], [place] PCP - General Internal Medicine 06/23/22 documented as of this encounter
--- OUTSIDE RECORDS SUMMARY | 2025-08-10 14:52 | XMS_ITS | Patient Health Record ---
Author Organization [facility] Address [address] [place] [address] Care Team Providers Care Algology Teacher Name Role Phone Hubert Henry Primary Care Provider [phone] [facility], Nursing Unavailable [phone] Lev Mcelroy Unavailable [phone] Migration, Provider Unavailable Unavailable Allergies Allergen (clinical drug ingredient) Drug/Non Drug Allergy documented on EMR Reaction Allergy Type Onset Date Status clonidine cloNIDine insomnia/nightma res Drug Allergy Active Results Component Value Reference Range Notes C-REACTIVE PROTEIN Reviewed date:03/21/2025 10:31:32 PM Interpretation:Normal Performing Lab: Notes/Report: C-Reactive Protein <0.29 <=0.50 mg/dL ThinPrep imaging Pap with Re flex HPV mRNA E6/E7. C Trachomatis, N. Gonorrhoeae Reviewed date:05/25/2025 02:44:18 PM Interpretation:negative Performing Lab:NL2, [facility] [id number] Lisa Malagon, Director - [address] [place] [address] Notes/Report: NON-FASTING CLINICAL INFORMATION: None g iven LMP: NONE GIVEN PREV. PAP: NONE GIVEN PREV. BX: NONE GIVEN SOURCE: None given STATEMENT OF ADEQUACY: Satisfactory for evaluation. Endocervical/transforma tion zone component present. INTERPRETATION/RESULT: Cytology Results: Negative for intraepithelial lesion or malignancy. COMMENT: This Pap test has been evaluated with the ThinPrep(R) Imaging System. BATTERY LOADER: CHANDRAKANT ROBERTS(ASCP) CT Screening Location: [facility] [address], [place] [address]. CLIA: [id number] Slide preparation performed at: [facility], [address] [place] [id number] CLIA: [id number] COMMENT EXPLANATORY NOTE: The Pap is a screening test for cervical cancer. It is not a diagnostic test and is subject to false negative and false positive results. It is most reliable when a satisfactory sample, regularly obtained, is submitted with relevant clinical findings and history, and when the Pap result is evaluated along with historic and current clinical information. CHLAMYDIA TRACHOMATIS RNA, TMA, UROGENITAL NOT DETECTED NOT DETECTED NEISSERIA GONORRHOEAE RNA, TMA, UROGENITAL NOT DETECTED NOT DETECTED COMMENT The analytical performance characteristics of this assay, when used to test SurePath(TM) specimens have been determined by [facility]. The modifications have not been cleared or approved by the FDA. This assay has been validated pursuant to the CLIA regulations and is used for clinical purposes. For additional information, please refer to https://education.AnswerGo.com/faq/FAQ 154 (This link is being provided for information/ educational purposes only.) URINALYSIS WITH REFLEX MICRO SCOPIC Reviewed date:04/11/2025 05:42:41 PM Interpretation:Negative Performing Lab: Notes/Report: Specific [place] Urine 1.018 1.003-1.030 pH, Urine 5.5 5.0-8.0 pH Leukocytes, Urine Negative Negative Nitrite, Urine Negative Negative Protein, Urine Negative <=Trace mg/dL Glucose, Urine Negative Negative mg/dL Ketones, Urine Negative Negative mg/dL Urobilinogen, Urine 0.2 0.2-1.0 mg/dL Bilirubin, Urine Negative Negative Blood, Urine Negative Negative CULTURE URINE Reviewed date:04/15/2025 11:38:00 AM Interpretation:mixed Performing Lab: Notes/Report: Culture, Urine 10,000-49,000 CFU/mL Mixed bacterial morphotypes present suggestive of possible contamination during collection. Suggest appropriate recollection if clinically indicated. CBC Reviewed date:11/09/2024 08:40:17 PM Interpretation:Hgb 7.7 Performing Lab: Notes/Report: Hgb 7.7 HEMATOCRIT 26 HEMOGLOBIN 7.7 PLT COUNT 452 WBC 6.6 COMPREHENSIVE METABOLIC PANE L Reviewed date:11/09/2024 08:42:28 PM Interpretation:creat 0.3 Performing Lab: Notes/Report: creat 0.3 Sodium 139 Potassium 4.4 Chloride 108 CO2 22 Glucose 70 BUN 16 Creatinine 0.3 Calcium 8.9 AST (SGOT) 39 ALT (SGPT) 24 Alkaline Phosphatase 128 Total Protein 6.5 Total Bilirubin 0.4 COMPREHENSIVE METABOLIC PANE L Reviewed date:03/18/2025 02:55:13 PM Interpretation:Normal Performing Lab: Notes/Report: Normal Sodium 143 Potassium 4.0 Chloride 111 CO2 24 Glucose 88 BUN 13 Creatinine 0.6 Calcium 9.1 AST (SGOT) 22 ALT (SGPT) 23 Alkaline Phosphatase 104 Total Protein 7.3 Albumin 3.3 Total Bilirubin 0.3 IRON AND TIBC Reviewed date:03/18/2025 02:56:06 PM Interpretation:Low Performing Lab: Notes/Report: Low Iron 32 TIBC 284 Iron Saturation 11 FOLIC ACID, RBC Reviewed date:03/18/2025 02:56:56 PM Interpretation:High Performing Lab: Notes/Report: High RBC FOLATE >20 COPPER, SERUM Reviewed date:03/18/2025 02:57:42 PM Interpretation:Normal Performing Lab: Notes/Report: Normal COPPER LEVEL 878 VITAMIN D, 25-HYDROXY Reviewed date:03/18/2025 02:58:17 PM Interpretation:29 Performing Lab: Notes/Report: 29 VITAMIN D, 25-HYDROXY 29 VITAMIN B12 Reviewed date:03/18/2025 02:58:59 PM Interpretation:Normal Performing Lab: Notes/Report: Normal VITAMIN B12 485 CBC Reviewed date:03/18/2025 02:59:58 PM Interpretation:Normal Performing Lab: Notes/Report: Normal HEMATOCRIT 42 HEMOGLOBIN 13.0 MCV 90 PLT COUNT 299 WBC 8.0 PTH, INTACT (WITHOUT CALCIUM ) Reviewed date:03/18/2025 03:00:42 PM Interpretation:Normal Performing Lab: Notes/Report: Normal PARATHYROID HORMONE, 29 URINALYSIS WITH REFLEX MICRO SCOPIC Reviewed date:03/18/2025 02:00:45 PM Interpretation:leukocytes Performing Lab: Notes/Report: Specific [place] Urine 1.014 1.003-1.030 pH, Urine 5.5 5.0-8.0 pH Leukocytes, Urine Moderate Negative Nitrite, Urine Negative Negative Protein, Urine Negative <=Trace mg/dL Glucose, Urine Negative Negative mg/dL Ketones, Urine Negative Negative mg/dL Urobilinogen, Urine 0.2 0.2-1.0 mg/dL Bilirubin, Urine Negative Negative Blood, Urine Negative Negative RBC, Urine 4.7 0-4 /HPF WBC, Urine 24.3 0-4 /HPF Squamous Epithelial, Urine 15 0-60 /LPF Bacteria, Urine Many Negative /HPF Hyaline Casts, Urine 0.4 0-3 /LPF CULTURE URINE Reviewed date:03/19/2025 12:40:07 PM Interpretation:e. coli UTI Performing Lab: Notes/Report: Culture, Urine ESCHERICHIA COLI 50,000-10 0,000 CFU/mL Escherichia coli Report Specimen Source: Urine Collected: Mar 17, 2025 00:00:00 Organism: ESCHERICHIA COLI Antibiotics EBONI Interpretation Amoxicillin+Clav Islt EBONI 8 S Ampicillin+Sulbac Islt EBONI 16 I Pip+Tazo Islt EBONI 4 S ceFAZolin Susc Islt 4 S cefOXitin Islt EBONI 4 S cefTAZidime Islt EBONI 0.5 S cefTRIAXone Islt EBONI 0.25 S Cefepime Islt EBONI 0.12 S Meropenem Islt EBONI 0.25 S Amikacin Islt EBONI 2 S Gentamicin Islt EBONI 16 R Ciprofloxacin Islt EBONI 0.06 S levoFLOXacin Islt EBONI 0.12 S Nitrofurantoin Islt EBONI 16 S TMP SMX Islt EBONI 320 R Report Susceptibility Report Specimen Source: Urine Collected: Mar 17, 2025 00:00:00 Organism: ESCHERICHIA COLI Antibiotics EBONI Interpretation Amoxicillin+Clav Islt EBONI 8 S Ampicillin+Sulbac Islt EBONI 16 I Pip+Tazo Islt EBONI 4 S ceFAZolin Susc Islt 4 S cefOXitin Islt EBONI 4 S cefTAZidime Islt EBOIN 0.5 S cefTRIAXone Islt EBONI 0.25 S Cefepime Islt EBONI 0.12 S Meropenem Islt EBONI 0.25 S Amikacin Islt EBONI 2 S Gentamicin Islt EBONI 16 R Ciprofloxacin Islt EBONI 0.06 S levoFLOXacin Islt EBONI 0.12 S Nitrofurantoin Islt EBONI 16 S TMP SMX Islt EBONI 320 R CBC WITH AUTO DIFFERENTIAL Reviewed date:03/23/2025 05:33:38 PM Interpretation:Normal Performing Lab: Notes/Report: WBC 5.9 4.8-10.8 K/mcL RBC 4.70 3.80-4.80 M/mcL Hemoglobin 13.1 11.5-16.0 g/dL Hematocrit 41.9 35.0-47.0 % MCV 88.6 79.0-98.0 FL MCH 27.7 27.0-32.0 pcg MCHC 31.3 32.0-37.0 g/dL RDW 13.1 11.0-15.0 % Platelets 290 130-400 K/mcL MPV 12.5 7.0-11.0 FL NRBC 0.0 <1.0 % NRBC Absolute 0.00 <0.10 K/mcL Neutrophils Relative 30.8 Lymphocytes Relative 56.1 Monocytes Relative 9.8 Eosinophils Relative 2.4 Basophils Relative 0.7 Immature Granulocytes Relative 0.2 Neutrophils Absolute 1.82 1.50-7.00 K/mcL Lymphocytes Absolute 3.31 1.00-5.00 K/mcL Monocytes Absolute 0.58 0.20-1.00 K/mcL Eosinophils Absolute 0.14 0.00-0.50 K/mcL Basophils Absolute 0.04 0.00-0.20 K/mcL Immature Granulocytes Absolute 0.01 0.00-0.03 K/mcL SEDIMENTATION RATE Reviewed date:03/31/2025 07:54:27 AM Interpretation:74 Performing Lab: Notes/Report: Sed Rate 74 0-30 mm/hr RICCO IFA WITH TITER AND LUCIO RN Reviewed date:03/23/2025 02:32:57 PM Interpretation:Negative Performing Lab: Notes/Report: RICCO Negative Negative CENTROMERE ANTIBODIES Reviewed date:03/27/2025 08:22:01 PM Interpretation:Negative Performing Lab: Notes/Report: Centromere Antibody 0.7 <7.0 U/mL INTERPRETATION: Negative Test performed at [facility], [address] [place] [address] Yudith Geiger MD, PhD - Clinical Case Manager CT Abdomen Pelvis WO Cont Reviewed date:06/22/2025 05:48:19 PM Interpretation:Abnormal Performing Lab: Notes/Report: Abnormal MG MAMMO DIGITAL SCREENING W SARA BILAT Reviewed date:07/27/2025 05:20:50 PM Interpretation:Normal Performing Lab: Notes/Report: See Note [facility], a member of [employer] CLINICAL: 60 years old, Female, routine annual [...] year. Mammo Location: [facility], [address] [place] [address], [address], . -------- FINAL REPORT -------- Dictated By: Sivakumar Alatorre Dictated Date: 07/27/2025 10:04 ET Assigned Physician: Sivakumar Alatorre Reviewed and Electronically Signed By: Sivakumar Alatorre Signed Date: 07/27/2025 11:03 ET Workstation ID: [id number] Transcribed By: Self Edit Transcribed Date: 07/27/2025 10:05 ET Reason For Referral Reason [facility] [address] , [place], [place] P: [phone] F: [phone] Knee high compression stockings, 2 pairs Diagnosis 1 Lymphedema, not else where classified (I89.0) Referral Organization [facility] Referring Provider First Name Hubert Referring Provider Last Name Carl Referring Provider Speciality Internal M edicine Referred Provider [facility] General Notes Lay Carter 07/2025 12:50:42 PM > faxed to [facility] Referral Priority Routine Reason [facility] - XL 8/day #240 5 rf Diagnosis 1 Functional urinary i ncontinence (R39.81) Referral Organization [facility] Referring Provider First Name Hubert Referring Provider Last Name Carl Referring Provider Speciality Internal edicine Referred Organization [facility] Referred Provider Maury [facility] Referred Address [address] [place], [place],[address], General Notes Marlene Lang 04/14/2025 09:47:04 AM > rx and referral faxed to [facility] Katelyn 04/26/2025 11:00:16 AM > pt reports they are getting picked up today Referral Priority Routine Reason [facility] [address] [place] P: [phone] F: [phone] Patient over 1/2 year past long ICU stay and has persistent genralized pain, ESR 74, rest of lab eval is really OK. Could this be PMR (I have not tried steroids yet). She is going for fibromayalgia. I also owonder if it is a vssd2LYF syndrome. Referral Organization [facility] Referring Provider First Name Hubert Referring Provider Last Name Carl Referring Provider Speciality Internal edicine Referred Provider Specialty Rheumatology General Notes Lay Carter 09:38:57 AM > Faxed to [facility] Referral Priority Routine Referral Appointment Date 05/03/2026 Reason [facility] [employer], [address] [place] P: [phone] F: Provide #1 motorized scooter Referral Organization [facility] Referring Provider First Name Hubert Referring Provider Last Name Boydvenkat Referring Provider Speciality Internal M edicine Referred Organization [facility] Referred Provider [employer] [facility] [employer] Referred Address [address] [place], [place],[address], Referred Provider Specialty Other suppli er General Notes Lay Carter 01:16:11 PM > Faxed to [employer], Marlene Lang 06/07/2025 10:48:15 AM >per [facility] they are waiting for an addendum to PT medical necessity from PT Raul hart [place] 06/27/2025 02:49:03 PM > Called and spoke with [facility] [employer], still awaiting on addendum from [facility] [employer] requested this info from PT on 06/01, 06/09, and 06/19/25, and again today 06/27/25 via email. On 06/19/25, [facility] stated he was still working on it. Referral Priority Routine Reason [facility] are, [address], [place] P: [phone] F: [phone] for [facility] OT - deconditioned and recent fall Referral Organization [facility] Referring Provider First Name Hubert Referring Provider Last Name Carl Referring Provider Speciality Internal M edicine Referred Provider Specialty Physical The rapist General Notes Lay Carter 08:25:29 AM > E-faxed to [facility] Katelyn 06/08/2025 01:06:53 PM > insurance won't cover PT for 3rd time will cover OT, order updated and refaxed Referral Priority Routine Medications Medication SIG (Take, Route, Frequency, Duration) Notes Start Date End Date Status predniSONE 5 MG 1 tablet with food or milk Orally Once a day for 30 days 2025 Active Pregabalin 200 mg TAKE 1 CAPSULE BY MOUTH two (2) times a day for 30 06/28/2025 Active Nicoderm CQ 14 MG/24HR 1 PATCH transdermally once a day for 28 days Active Losartan Potassium 100 mg TAKE 1 TABLET BY MOUTH ONCE DAILY for 30 Active Furosemide 20 mg TAKE 1 TABLET BY MOUTH ONCE DAILY for 30 Active Ulises-Gest Antacid 500 MG CHEW AND SWALLOW 1 TABLET BY MOUTH ONCE DAILY NEEDED for 90 Active Symbicort 160-4.5 MCG/ACT INHALE 2 PUFF BY MOUTH two (2) times a day. rinse mouth and throat after use inhaled 2 times a day; May use 2 puffs as needed every 4 hours for shortness of breath: Maximum: 12 puffs/24 hours for 30 days Active Folic Acid 1 MG 1 tab(s) orally once a day for 90 days Active JANELL HIVES 24 HOUR 180 MG 1 TAB(S) ORALLY AT BEDTIME for 90 DAYS *Please review for potential replacement for e-prescription and drug interaction check* 05/17/2025 Active Naproxen 500 mg TAKE 1 TABLET BY MOUTH two (2) times a day NEEDED FOR PAIN ON CHEST for 14 Active Solifenacin Succinate 10 mg TAKE 1 TABLET BY MOUTH ONCE DAILY for 30 Active QUEtiapine Fumarate 50 mg TAKE 1 TABLET BY MOUTH 3 (THREE) TIMES A DAY for 30 Active Incruse Ellipta 62.5 MCG (0.0625 MG)/INH 1 INH INHALED EVERY 24 HOURS for 28 DAYS *Please review and pick correct strength-formulati on from [employer] options. If intended option is not shown, discontinue and re-order from Quick Search* 05/17/2025 Active Vitamin D3 25 MCG 1 tab(s) orally once a day Active busPIRone HCl 10 MG 1 tab(s) orally 2 times a day Active Acetaminophen 325 MG 2 tab(s) orally every 6 hours Active Mirtazapine 7.5 MG 2 tab(s) orally once a day (at bedtime) Active Potassium Chloride ER 10 mEq TAKE 1 TABLET BY MOUTH two (2) times a day for 30 Active traMADol HCl 50 MG 1 tablet as needed Orally every 8 hrs for 7 days 06/27/2025 Active ALLBEE PLUS VITAMIN B COMPLEX WITH C AND FOLIC ACID 1 TAB(S) ORALLY ONCE A DAY for 90 DAYS *Please review for potential replacement for e-prescription and drug interaction check* 01/05/2024 Active MiraLax 17 GM/SCOOP as directed Orally daily for 28 days one scoop in 8 oz water or juice 06/27/2025 Active Ferrous Sulfate 325 (65 Fe) MG 1 tab(s) orally once a day for 90 days Active Vitamin B-12 1000 MCG 1 tab(s) orally once a day for 90 days 01/30/2024 Active Atorvastatin Calcium 40 MG 1 tab(s) orally once a day for 30 days Active LORazepam 1 MG 1 tab(s) orally every 6 hours for 30 days 03/20/2025 Active Levothyroxine Sodium 137 MCG 1 tab(s) orally once a day for 30 days Active Immunizations Vaccine Route Administration Date Status Comme nts Influenza IM Intramuscular 06/14/2015 Administered Hepatitis A IM Intramuscular 09/25/2015 Administered Hepatitis A Unknown 05/21/2016 Administered Hepatitis B (20 or more) IM Intramuscular 02/08/2018 Administered [facility] [id number] PPSV 23 IM Intramuscular 07/06/2018 Administered Influenza IM Intramuscular 07/21/2018 Administered Tdap IM Intramuscular 12/08/2018 Administered [facility] 49 [id number] Influenza IM Intramuscular 11/14/2019 Administered [facility] 49 [id number] Mamba Covid-19 Vaccine Administration - First Dose (Single Dose 30MCG/0.3ML 1ST) Unknown 02/01/2021 Administered Hepatitis B (20 or more) IM Intramuscular 02/20/2021 Administered Mamba Covid-19 Vaccine Administration-Secon d Dose (Single Dose 30MCG/0.3ML 2ND) IM Intramuscular 02/22/2021 Administered [facility] Influenza IM Intramuscular 08/28/2021 Administered hepatitis B IM Intramuscular 11/11/2022 Administered Influenza IM Intramuscular 11/11/2022 Administered Influenza IM Intramuscular 08/28/2023 Administered Influenza IM Intramuscular 06/27/2025 Administered Social History Tobacco Use: Social History Observation Description Date Details (start date - stop date) Current Smoker NA - NA Sex Assigned At : Social History Observation Description Sex Assigned At Female Tobacco Use Assessment MU Question Answer Notes What is your current smoking status? current smo ker How often do you smoke? every day How many cigarettes a day do you smoke? 5 or les s Are you interested in quitting? thinking about q uitting Patient counseled on the bebeto gers of tobacco use and advised to quit: 02/03/2025 Section Notes: Smoking status: about 6 sigs a day New sexual parter? NO Substance abuse status: NO Smoking status: about 6 sigs a day New sexual parter? NO Substance abuse status: NO Smoking status: about 6 sigs a day New sexual parter? NO Substance abuse status: NO Smoking status: about 6 sigs a day New sexual parter? NO Substance abuse status: NO Smoking status: about 6 sigs a day New sexual parter? NO Substance abuse status: NO Smoking status: about 6 sigs a day New sexual parter? NO Substance abuse status: NO Smoking status: about 6 sigs a day New sexual parter? NO Substance abuse status: NO Smoking status: about 6 sigs a day New sexual parter? NO Substance abuse status: NO Smoking status: about 6 sigs a day New sexual parter? NO Substance abuse status: NO Smoking status: about 6 sigs a day New sexual parter? NO Substance abuse status: NO Smoking status: about 6 sigs a day New sexual parter? NO Substance abuse status: NO Smoking status: about 6 a day New sexual parter? NO Substance abuse status: NO Smoking status: 2-3 cigs a day New sexual parter? NO Substance abuse status: NO Smoking status: 5 or 6 cigs a day New sexual parter? NO Substance abuse status: NO Smoking status: 2 to 3 cigs a day. New sexual parter? NO Substance abuse status: NO Smoking status: 2 to 3 cigs a day. New sexual parter? NO Substance abuse status: NO Smoking status: anout 10cigs a day. Would like some patches. New sexual parter? NO Substance abuse status: NO Smoking status: 6-10 cigs a day. New sexual parter? NO Substance abuse status: NO Smoking status: about 6 sigs a day New sexual parter? NO Substance abuse status: NO Smoking status: about 6 sigs a day New sexual parter? NO Substance abuse status: NO Smoking status: about 6 sigs a day New sexual parter? NO Substance abuse status: NO Smoking status: about 6 sigs a day New sexual parter? NO Substance abuse status: NO Smoking status: about 6 sigs a day New sexual parter? NO Substance abuse status: NO Smoking status: about 6 sigs a day New sexual parter? NO Substance abuse status: NO Smoking status: about 6 sigs a day New sexual parter? NO Substance abuse status: NO Smoking status: about 6 sigs a day New sexual parter? NO Substance abuse status: NO Smoking status: about 6 sigs a day New sexual parter? NO Substance abuse status: NO Smoking status: about 6 sigs a day New sexual parter? NO Substance abuse status: NO Smoking status: about 6 sigs a day New sexual parter? NO Substance abuse status: NO Smoking status: about 6 sigs a day New sexual parter? NO Substance abuse status: NO Smoking status: about 6 sigs a day New sexual parter? NO Substance abuse status: NO Smoking status: about 6 sigs a day New sexual parter? NO Substance abuse status: NO Smoking status: about 6 sigs a day New sexual parter? NO Substance abuse status: NO Smoking status: about 6 sigs a day New sexual parter? NO Substance abuse status: NO Smoking status: about 6 sigs a day New sexual parter? NO Substance abuse status: NO Smoking status: about 6 sigs a day New sexual parter? NO Substance abuse status: NO Smoking status: about 6 sigs a day New sexual parter? NO Substance abuse status: NO Smoking status: about 6 sigs a day New sexual parter? NO Substance abuse status: NO Smoking status: about 6 sigs a day New sexual parter? NO Substance abuse status: NO Smoking status: about 6 sigs a day New sexual parter? NO Substance abuse status: NO Smoking status: about 6 sigs a day New sexual parter? NO Substance abuse status: NO Smoking status: about 6 sigs a day New sexual parter? NO Substance abuse status: NO Smoking status: about 6 sigs a day New sexual parter? NO Substance abuse status: NO Smoking status: about 6 sigs a day New sexual parter? NO Substance abuse status: NO Smoking status: about 6 sigs a day New sexual parter? NO Substance abuse status: NO Smoking status: about 6 sigs a day New sexual parter? NO Substance abuse status: NO Smoking status: about 6 sigs a day New sexual parter? NO Substance abuse status: NO Smoking status: about 6 sigs a day New sexual parter? NO Substance abuse status: NO Smoking status: about 6 sigs a day New sexual parter? NO Substance abuse status: NO Smoking status: about 6 sigs a day New sexual parter? NO Substance abuse status: NO Smoking status: about 6 sigs a day New sexual parter? NO Substance abuse status: NO Smoking status: about 6 sigs a day New sexual parter? NO Substance abuse status: NO Smoking status: about 6 sigs a day New sexual parter? NO Substance abuse status: NO Smoking status: about 6 sigs a day New sexual parter? NO Substance abuse status: NO Smoking status: about 6 sigs a day New sexual parter? NO Substance abuse status: NO Problems Problem Type SNOMED Code ICD Code Onset Dates Problem Status W/U Status Risk Notes Problem Hypothyroidism (57845441) Hypothyroidism, unspecified (E03.9) Active confirmed Problem Morbid obesity (disorder) (397016358) Morbid (severe) obesity due to excess calories (E66.01) Active confirmed Problem Alcohol induced disorder co-occurrent and due to alcohol dependence (disorder) (793512027273620) Alcohol dependence with other alcohol-induced disorder (F10.288) Active confirmed Problem Tobacco user (067544840) Nicotine dependence, cigarettes, uncomplicated (F17.210) Active confirmed Problem Nicotine dependence (70587806) Nicotine dependence, cigarettes, with other nicotine-induced disorders (F17.218) Active confirmed Problem Mild recurrent major depression (87857670) Major depressive disorder, recurrent, mild (F33.0) Active confirmed Problem Dysthymia (36740147) Dysthymic disorder (F34.1) Active confirmed Problem New daily persistent headache (136506047432152) New daily persistent headache (NDPH) (G44.52) Active confirmed Problem 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 Problem Chronic pain syndrome (136760704) Chronic pain syndrome (G89.4) Active confirmed Problem Essential hypertension (89697631) Essential (primary) hypertension (I10) Active confirmed Problem Long QT syndrome (8320320) Long QT syndrome (I45.81) Active confirmed Problem Raynaud's disease (962873631) Raynaud's syndrome without gangrene (I73.00) Active confirmed Problem Peripheral vascular disease (452758846) Peripheral vascular disease, unspecified (I73.9) Active confirmed Problem Lymphedema (614881480) Lymphedema, not elsewhere classified (I89.0) Active confirmed Problem Seasonal allergic rhinitis (527025324) Other seasonal allergic rhinitis (J30.2) Active confirmed Problem Chronic sinusitis (04650944) Chronic sinusitis, unspecified (J32.9) Active confirmed Problem Chronic obstructive pulmonary disease (28650610) Chronic obstructive pulmonary disease, unspecified (J44.9) Active confirmed Problem Gastritis (0828395) Other gastritis without bleeding (K29.60) Active confirmed Problem Hernia of abdominal cavity (disorder) (21438633) Other specified abdominal hernia without obstruction or gangrene (K45.8) Active confirmed Problem 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) Active confirmed Problem Chronic ulcer of skin (91289569) Non-pressure chronic ulcer of skin of other sites limited to breakdown of skin (L98.491) Active confirmed Problem Polymyalgia rheumatica (18726661) Polymyalgia rheumatica (M35.3) Active confirmed Problem Sciatica (66738064) Lumbago with sciatica, right side (M54.41) Active confirmed Problem Sciatica (25085009) Lumbago with sciatica, left side (M54.42) Active confirmed Problem Diastasis of muscle (879883570) Separation of muscle (nontraumatic), unspecified site (M62.00) Active confirmed Problem Menopause (215597604) Menopausal and female climacteric states (N95.1) Active confirmed Problem Functional urinary incontinence (490175370) Functional urinary incontinence (R39.81) Active confirmed Problem History of bariatric surgical procedure (373667846) Bariatric surgery status (Z98.84) Active confirmed Cristina en Y surgery Problem Acute pancreatitis (513980739) Acute pancreatitis without necrosis or infection, unspecified (K85.90) 024 Active confirmed Problem Body mass index 35.00 to 39.99 (231748898666737) Body mass index [BMI] 36.0-36.9, adult (Z68.36) Active confirmed Problem Obese class II (307533633396527) Body mass index [BMI] 35.0-35.9, adult (Z68.35) Inactive confirmed Problem Body mass index 40+ - severely obese (981743046) Body mass index [BMI] 40.0-44.9, adult (Z68.41) Inactive confirmed Vital Signs Temperature 98.4 degrees Fahrenheit 06/27/2025 Blood pressure diastolic 74 06/27/2025 Oximetry 96 06/27/2025 Height 65 in 06/27/2025 Blood pressure systolic 118 06/27/2025 Weight 221.6 lbs 06/27/2025 BMI 36.87 kg/m2 06/27/2025 Encounters Encounter Location Date Provider Diagnosis [address] [address] 06/03/2025 Provider Migration Chronic obstructive pulmonary disease, unspecified J44.9 ; Other seasonal allergic rhinitis J30.2 and Other chest pain R07.[address] [address] 02/03/2025 Hubert Henry Encounter for screening for COVID-19 Z11.52 ; Acute pancreatitis without necrosis or infection, unspecified K85.90 ; Hypothyroidism, unspecified E03.9 ; Major depressive disorder, recurrent, mild F33.0 ; Alcohol dependence with other alcohol-induced disorder F10.288 ; Essential (primary) hypertension I10 and Non-pressure chronic ulcer of skin of other sites limited to breakdown of skin L98.[address] [address] 03/17/2025 Hubert Henry Encounter for screening for COVID-19 Z11.52 ; Polymyalgia rheumatica M35.3 ; Raynaud's syndrome without gangrene I73.00 ; Unspecified abdominal pain R10.9 ; Nicotine dependence, cigarettes, uncomplicated F17.210 ; Essential (primary) hypertension I10 ; Chronic pain syndrome G89.4 ; Major depressive disorder, recurrent, mild F33.0 and Non-pressure chronic ulcer of skin of other sites limited to breakdown of skin L98.[address] [address] 03/21/2025 Nursing [facility] Encounter for screening, unspecified Z13.[address] [address] 04/11/2025 Nursing [facility] Encounter for screening, unspecified Z13.[address] [address] 05/05/2025 Hubert Henry Encounter for screening for COVID-19 Z11.52 ; Polymyalgia rheumatica M35.3 ; Functional urinary incontinence R39.81 ; Telogen effluvium L65.0 ; 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 ; Essential (primary) hypertension I10 and Lymphedema, not elsewhere classified I89.[address] [address] 05/17/2025 Lev Mcelroy Encounter for screening for malignant neoplasm of cervix Z12.4 ; Encounter for screening mammogram for malignant neoplasm of breast Z12.31 ; Chronic obstructive pulmonary disease, unspecified J44.9 ; Body mass index [BMI] 36.0-36.9, adult Z68.36 ; Other seasonal allergic rhinitis J30.2 ; Nicotine dependence, cigarettes, with other nicotine-induced disorders F17.218 ; Encounter for screening for COVID-19 Z11.52 and Other chest pain R07.89 [facility] [address] [place] [address] [place] [id number] 06/16/2025 Hubert Henry Encounter for screening for COVID-19 Z11.52 ; Polymyalgia rheumatica M35.3 ; Lymphedema, not elsewhere classified I89.0 ; Functional urinary incontinence R39.81 ; Bariatric surgery status Z98.84 and Other specified abdominal hernia without obstruction or gangrene K45.[address] [address] 06/27/2025 Hubert Henry Encounter for screening for COVID-19 Z11.52 ; Polymyalgia rheumatica M35.3 ; Encounter for immunization Z23 ; Encounter for screening mammogram for malignant neoplasm of breast Z12.31 ; Other specified abdominal hernia without obstruction or gangrene K45.8 ; Dysthymic disorder F34.1 ; Essential (primary) hypertension I10 ; Morbid (severe) obesity due to excess calories E66.01 ; Lymphedema, not elsewhere classified I89.0 ; Separation of muscle (nontraumatic), unspecified site M62.00 and Drug induced constipation K59.[address] [address] 11/09/2024 Hubert Henry [address] [address] 11/23/2024 Hubert Henry [address] [address] 01/19/2025 Hubert Henry [address] [address] 01/25/2025 Hubert Henry [address] [address] 02/17/2025 Hubert Henry Chronic obstructive pulmonary disease, unspecified J44.[address] [address] 02/24/2025 Hubert Henry [address] [address] 03/09/2025 Hubert Henry [address] [address] 03/19/2025 Hubert Henry [address] [address] 03/21/2025 Hubert Henry [address] [address] 03/22/2025 Hubert Henry [address] [address] 03/22/2025 Hubert Henry [address] [address] 03/29/2025 Hubert Henry Hypothyroidism, unspecified E03.[address] [address] 04/03/2025 Hubert Henry [address] [address] 04/06/2025 Hubert Henry [address] [address] 04/10/2025 Hubert Henry [address] [address] 04/12/2025 Hubert Henry [address] [address] 04/14/2025 Hubert Henry [address] [address] 04/26/2025 Hubert Henry [address] [address] 05/05/2025 Hubert Henry Functional urinary incontinence R39.[address] [address] 05/09/2025 Hubert Henry [address] [address] 05/19/2025 Hubert Henry [address] [address] 06/07/2025 Hubertoliva Henry [address] [address] 06/12/2025 Hubert Carl Other chest pain R07.89 Assessments Encounter Date Diagnosis (ICD Code) Assessment Notes Treatment Notes Treatment Clinical Notes Section Notes 03/21/2025 Encounter for screening, unspecified (ICD-10 - Z13.9) Lab work drawn as ordered, per protocol using aseptic technique. Client will be notified of all lab values within two weeks, Client agrees with plan, allowed to clarify questions about plan. PT requesting 2XL brief size message sent to Dr. Henry with request 04/11/2025 Encounter for screening, unspecified (ICD-10 - Z13.9) Urine obtained and transferred to labeled spec tube, awaiting lab pick and shovel man. 02/03/2025 Acute pancreatitis without necrosis or infection, unspecified (ICD-10 - K85.90) miriam went through a lot and is stable and much improved. waiting to get home care going with PT MAy need new [employer] application. She syas she has enough meds (list reviewed) for now. Knows oxycodone is not terminologist 02/03/2025 Encounter for screening for COVID-19 (ICD-10 - Z11.52) Covid screening is negative. Discussed in detail with patient how to practice social distancing by avoiding public spaces and crowds now, wearing a mask in public to keep nose and mouth covered, and washing hands frequently especially before eating and after using the bathroom. Return to clinic if you develop any symtpoms of concern to be rescreened or go to the emergency room if you are having concerning symptoms for COVID-19. 03/17/2025 Polymyalgia rheumatica (ICD-10 - M35.3) stretching abit here but muigt fit in PMR class. Diffuse pain and otherdisturbaces c/w fibro but she has so much els happening that I told he we need t look a little farther firs. 03/17/2025 Encounter for screening for COVID-19 (ICD-10 - Z11.52) Covid screening is negative. Discussed in detail with patient how to practice social distancing by avoiding public spaces and crowds now, wearing a mask in public to keep nose and mouth covered, and washing hands frequently especially before eating and after using the bathroom. Return to clinic if you develop any symtpoms of concern to be rescreened or go to the emergency room if you are having concerning symptoms for COVID-19. 05/05/2025 Polymyalgia rheumatica (ICD-10 - M35.3) At present I look at her as pMR but not tyical. ESR up, sx proximal but complex. Explained otantial dx and steroid trial for up to 8 weeks Explaoined prednisone simba effects. 05/05/2025 Encounter for screening for COVID-19 (ICD-10 - Z11.52) Covid screening is negative. Discussed in detail with patient how to practice social distancing by avoiding public spaces and crowds now, wearing a mask in public to keep nose and mouth covered, and washing hands frequently especially before eating and after using the bathroom. Return to clinic if you develop any symtpoms of concern to be rescreened or go to the emergency room if you are having concerning symptoms for COVID-19. 05/17/2025 Encounter for screening mammogram for malignant neoplasm of breast (ICD-10 - Z12.31) agrees to go for mammogram 05/17/2025 Encounter for screening for malignant neoplasm of cervix (ICD-10 - Z12.4) PAP done 06/16/2025 Polymyalgia rheumatica (ICD-10 - M35.3) I think I have enough for PMR and want to get he rn 5 mg prednisone. Out for aweek and want to go 10 mg for a week 06/16/2025 Encounter for screening for COVID-19 (ICD-10 - Z11.52) Covid screening is negative. Discussed in detail with patient how to practice social distancing by avoiding public spaces and crowds now, wearing a mask in public to keep nose and mouth covered, and washing hands frequently especially before eating and after using the bathroom. Return to clinic if you develop any symtpoms of concern to be rescreened or go to the emergency room if you are having concerning symptoms for COVID-19. 06/27/2025 Polymyalgia rheumatica (ICD-10 - M35.3) PMR iteself iproved and want her to go to 5 ,mg a day prednisone and not the 10 mg retart doherty anymore 06/27/2025 Encounter for screening for COVID-19 (ICD-10 - Z11.52) Covid screening is negative. Discussed in detail with patient how to practice social distancing by avoiding public spaces and crowds now, wearing a mask in public to keep nose and mouth covered, and washing hands frequently especially before eating and after using the bathroom. Return to clinic if you develop any symtpoms of concern to be rescreened or go to the emergency room if you are having concerning symptoms for COVID-19. 02/17/2025 Chronic obstructive pulmonary disease, unspecified (ICD-10 - J44.9) 03/29/2025 Hypothyroidism, unspecified (ICD-10 - E03.9) 05/05/2025 Functional urinary incontinence (ICD-10 - R39.81) 06/12/2025 Other chest pain (ICD-10 - R07.89) 06/03/2025 Chronic obstructive pulmonary disease, unspecified (ICD-10 - J44.9) 02/03/2025 Hypothyroidism, unspecified (ICD-10 - E03.9) 03/17/2025 Raynaud's syndrome without gangrene (ICD-10 - I73.00) Not quite raynaud's but on the sepctrum-see serologies 05/05/2025 Functional urinary incontinence (ICD-10 - R39.81) Wfrote Detrol but chenged to solifenacin as urge incontinnce trial. if no hel, then urology 05/17/2025 Chronic obstructive pulmonary disease, unspecified (ICD-10 - J44.9) Uses albuterol 2-3x/day. Will add LAMA 06/16/2025 Lymphedema, not elsewhere classified (ICD-10 - I89.0) We are caling L&C re: stockings 06/27/2025 Encounter for immunization (ICD-10 - Z23) Screening performed for vaccine contraindications prior to administration. See scanned document. VIS reviewed. No contraindications for vaccine administration. Infuenza vaccine given per protocol. No adverse outcome with administration of vaccine. 02/03/2025 Major depressive disorder, recurrent, mild (ICD-10 - F33.0) she feels she is doign wel with hime support. Will follow. Does not want newmeds 03/17/2025 Unspecified abdominal pain (ICD-10 - R10.9) Due to he rpast surgeries. Try to brooks[p diet going. F/u with her surgeon ?scar nueoma that could be injected? 05/05/2025 Telogen effluvium (ICD-10 - L65.0) ICU related t. effluvium. Reviewd natural history and expectations Hair for Chriusymas : 05/17/2025 Body mass index [BMI] 36.0-36.9, adult (ICD-10 - Z68.36) Engaged discussion on maintaining healthy lifestyle: healthy diet low on fats and simple carbohydrates, and regular physical exercise of at least 30 minutes daily if able 06/16/2025 Functional urinary incontinence (ICD-10 - R39.81) Much improve-dcont meds 06/27/2025 Encounter for screening mammogram for malignant neoplasm of breast (ICD-10 - Z12.31) agree to mammo 06/03/2025 Other seasonal allergic rhinitis (ICD-10 - J30.2) 02/03/2025 Alcohol dependence with other alcohol-induced disorder (ICD-10 - F10.288) committedto not drinking sis cussed strategiues 03/17/2025 Nicotine dependence, cigarettes, uncomplicated (ICD-10 - F17.210) not a lot of cahnge but trying-support 05/05/2025 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 on hold for neuro 05/17/2025 Other seasonal allergic rhinitis (ICD-10 - J30.2) will trial antihistamin 06/16/2025 Bariatric surgery status (ICD-10 - Z98.84) Cristina en Y surgery 06/27/2025 Other specified abdominal hernia without obstruction or gangrene (ICD-10 - K45.8) diastasis by imaging. expaoined this to eher 02/03/2025 Essential (primary) hypertension (ICD-10 - I10) 03/17/2025 Essential (primary) hypertension (ICD-10 - I10) BP good today. No change 05/05/2025 Essential (primary) hypertension (ICD-10 - I10) BP adequers 05/17/2025 Nicotine dependence, cigarettes, with other nicotine-induced disorders (ICD-10 - F17.218) encouraged abstinence 06/16/2025 Other specified abdominal hernia without obstruction or gangrene (ICD-10 - K45.8) She asked for Zepbound. She has past gastric bypass (now abd wll thao serrano was told weihgt los woitul dhel.. Wiht her multiple surgeries stimach and intestine I am not sure zeprbound would be safe and she is booke dto see her bariatric surgeonin 2 months, i advised her to discuss with him 06/27/2025 Dysthymic disorder (ICD-10 - F34.1) stable at present. BH f/u 02/03/2025 Non-pressure chronic ulcer of skin of other sites limited to breakdown of skin (ICD-10 - L98.491) Healing nicely 03/17/2025 Chronic pain syndrome (ICD-10 - G89.4) see above. [facility] labs [facility] 05/05/2025 Lymphedema, not elsewhere classified (ICD-10 - I89.0) lasix of slight help and will stay witj QOD. retry stockings-needs new rx 20-30 mm knee high 05/17/2025 Encounter for screening for COVID-19 (ICD-10 - Z11.52) Covid screening is negative. Discussed in detail with patient how to practice social distancing by avoiding public spaces and crowds now, wearing a mask in public to keep nose and mouth covered, and washing hands frequently especially before eating and after using the bathroom. Return to clinic if you develop any symtpoms of concern to be rescreened or go to the emergency room if you are having concerning symptoms for COVID-19. 06/27/2025 Essential (primary) hypertension (ICD-10 - I10) BP improvedp-no change in rx 06/03/2025 Other chest pain (ICD-10 - R07.89) 03/17/2025 Major depressive disorder, recurrent, mild (ICD-10 - F33.0) Stable to improved-supprt 05/17/2025 Other chest pain (ICD-10 - R07.89) papo musculo-skeletal from the fall. no flail chest. Advised to continue with Naproxen 06/27/2025 Morbid (severe) obesity due to excess calories (ICD-10 - E66.01) I will cintact her ariatric surgeon re: options Sees him i n October. i think options are pretty limited with her past bypass and woder if BGLP-1 isunsfae 03/17/2025 Non-pressure chronic ulcer of skin of other sites limited to breakdown of skin (ICD-10 - L98.491) healed 06/27/2025 Lymphedema, not elsewhere classified (ICD-10 - I89.0) much imporved 06/27/2025 Separation of muscle (nontraumatic), unspecified site (ICD-10 - M62.00) see above 06/27/2025 Drug induced constipation (ICD-10 - K59.03) Lots of stool on CT. Start mioralax 02/03/2025 Other 03/17/2025 Other Unable to draw labs today, pt agrees to hydrate and return to clinic on Thursday for repeat draw. Urine obtained and transferred to labeled spec tube, awaiting lab pick and shovel man. 05/05/2025 Other 05/17/2025 Other 06/16/2025 Other She had been told rpeviously that scooter vendor was waiting for addendium to her PT note and it wa to go to them diretly, not rhough us. asked nurse to go iver that with her again 17 moinute call 06/27/2025 Other Plan Of Treatment Pending Test Test Name Order Date GC, DNA Urine - [facility] 09/25/2015 X ray : Ankle, left 02/26/2016 X ray : Foot, left 02/26/2016 Mammogram-Screening 07/17/2015 Mammogram-Screening 12/08/2018 CBC with Diff - [facility] 10/06/2017 Chlamydia, DNA Urine - [facility] 09/25/19 16 EKG 09/05/2016 TB Screen Verbal 07/17/2015 MICROALBUMIN, RANDOM URINE (W/CREATININE ) 05/04/2019 PTH, INTACT AND CALCIUM 02/01/2024 COMPREHENSIVE METABOLIC PANEL-[facility] 11/19 COMPREHENSIVE METABOLIC PANEL[facility] 09/22 COMPREHENSIVE METABOLIC PANEL[facility] 10/23 CBC (INCLUDES DIFF/PLT) AUTO DIFF - NO P ATH REVIEW 11/13/2017 CBC (H/H, RBC, INDICES, WBC, PLT) 2017 CBC (H/H, RBC, INDICES, WBC, PLT) 2017 URINALYSIS, COMPLETE W/REFLEX TO CULTURE 10/08/2017 PROTHROMBIN TIME-INR 12/05/2019 PROTHROMBIN TIME-INR 11/13/2017 PROTHROMBIN TIME-INR 10/15/2017 MITOCHONDRIAL ANTIBODY W/REFL TITER 03/21 LIVER FIBROSIS, FIBROTEST ACTITEST PANEL 12/05/2019 BASIC METABOLIC PANEL (BMP) 09/07/2023 H. PYLORI ANTIGEN STOOL 01/29/2024 MAGNESIUM 11/11/2022 UA WITH CULTURE IF INDICATED 04/17/2022 CR Hip Uni 2-3 Views RT 10/08/2020 CR Spine Lumbar 2 or 3 Views 10/08/2020 Nicolas Screening Digital 10/28/2022 Nicolas Screening Digital 02/20/2021 Nicolas Screening Digital 05/14/2020 Nicolas Screening Digital 06/27/2025 US Bladder 05/29/2021 US Gall Bladder 10/08/2020 CULTURE URINE 02/24/2025 Next Appt Details Provider Name:Hubert Henry, 09/01/2025 10:20:00 AM, [address] [facility], [place], [address], Insurance Providers Payer Name Payer Address Payer Phone Subscriber Number Group Number Insured Name Patient Relationship to Insured Coverage Start Date Coverage End Date [facility] [address] [place] [phone] [id number] Miriam Martins Self - patient is the insured 6 MD Medicaid Standard [address] [place] [phone] [id number] Miriam Martins Self - patient is the insured 5 Medications Administered Medication Instructions Date of Administration Dosage Notes Ketorolac 07/06/2018 30 mg Ketorolac 08/04/2018 30 mg No NDC on vial Ketorolac 08/04/2018 30 mg No NDC on vial Medical (General) History Medical History History ICD Code hypertension hypothyroid migraine depression lumbar spine issues tobacco use 04/2017: [facility] Admission for Ch est pain. : W/U negative. Hydroxyzine/ HCTZ stopped due to low MG/K+ 04/2017: RLL nodule noted on chest CT: re peat Chest CT needed in 2018 Bariatric Surgery: 2009. Initial weight loss: 150 lbs Dorsalgia, unspecified Headache Paresthesia of skin Encounter for screening for malignant ne oplasm of colon Pain in left foot Alcoholic Hepatitis, + ascites 11/06/17, cirrhosis Other ascites Iron deficiency anemia, unspecified Post-traumatic stress disorder, chronic Vitamin B12 deficiency anemia, unspecifi ed Paresthesia of skin Body mass index [BMI] 39.0-39.9, adult Z 68.39 Body mass index [BMI] 39.0-39.9, adult Z 68.39 Surgical History Surgery Date(Month/Year) L4-L5 fusion and nonsegmental fixation gastric by-pass in [place] 2009 tubal libation 20 years ago hernia [id number] ago Hospitalization History Reason Date(Month/Year) [facility] inpt + UTI, hypoalbuminemia, alcohol ic hepatitis 11/06 Rectal reading 10/08 [facility] Chest pain x 3 days 05/02/17 [facility], back surgery 11/2015 [facility] ER anxiety 2013 gastric bypass 2009
== END 2025-08-10 10:07 | disposition home or self-care (01) ==
LOC: HO.XRAY 10:06
PROVIDERS: PCP Internal Medicine; Visit Provider Student in an Organized Health Care Education/Training Program
DX: M25.541 Pain in joints of right hand (principal); M25.542 Pain in joints of left hand; M25.511 Pain in right shoulder; M25.512 Pain in left shoulder; M53.3 Sacrococcygeal disorders, not elsewhere classified
CPT/HCPCS: 72202; 73030; 73130

== ENCOUNTER → 2025-08-10 10:14 | Outpatient (BNV) | payer OTHER, SELFPAY | PROVIDERS: PCP Internal Medicine; Visit Provider Radiology Diagnostic Radiology | DX: M79.7 Fibromyalgia (principal) | CPT/HCPCS: 72202; 73030; 73130 ==

== ENCOUNTER 2025-08-21 09:00 | Outpatient (REF) | payer OTHER, SELFPAY ==
--- OUTSIDE RECORDS SUMMARY | 2025-06-03 16:00 | XMS_ITS ---
Author Organization [facility] Address [address] [place] [address] Care Team Providers Care Retrimmer Name Role Phone Hubert Henry Primary Care Provider [phone] Migration, Provider Unavailable Unavailable Allergies Allergen (clinical drug ingredient) Drug/Non Drug Allergy documented on EMR Reaction Allergy Type Onset Date Status clonidine cloNIDine insomnia/nightma res Drug Allergy Active REASON FOR VISIT Multum To Medispan Conversion Encounter Medications Medication SIG (Take, Route, Frequency, Duration) Notes Start Date End Date Status guaiFENesin 100 MG/5ML 10 mL orally ever y 4 hours Not-Taking oxyCODONE HCl 5 MG 1 tab(s) orally every 6 hours Not-Taking Silver sulfADIAZINE 1 % 1 jayson applied topically 2 times a day Not-Taking Lidocaine 5 % 1 PATCH applied topically once a day Not-Taking MiraLax - DIRECTED ORALLY ONCE A DAY *Please review and pick correct strength-formula tion [facility]. If intended option is not shown, discontinue and re-order from Quick Search* Not-Taking Solifenacin Succinate 10 MG 1 tab(s) orally once a day for 30 days 5 Active Symbicort 160-4.5 MCG/ACT INHALE 2 PUFF BY MOUTH two (2) times a day. rinse mouth and throat after use inhaled 2 times a day; May use 2 puffs as needed every 4 hours for shortness of breath: Maximum: 12 puffs/24 hours for 30 days Active SEROquel 50 MG 1 tab(s) orally 3 times a day for 30 days Active Furosemide 20 MG 1 tab(s) orally once a day for 30 days Active POTASSIUM CHLORIDE (EQV-K-TAB) 10 MEQ TAKE 1 TABLET BY MOUTH TWO (2) TIMES A DAY for 30 *Please review for potential replacement for e-prescription and drug interaction check* Active predniSONE 10 MG 3 tabs daily for 2weeks, then 2 daily for 2 weeks, then one daily orally once a day for 30 days 5 Active Nicoderm CQ 14 MG/24HR 1 PATCH transdermally once a day for 28 days Active Pregabalin 200 MG 1 cap(s) orally 2 times a day for 30 days 5 Active Losartan Potassium 100 MG 1 tab(s) orally once a day for 90 days Active Levothyroxine Sodium 137 MCG 1 tab(s) orally once a day for 30 days Active LORazepam 1 MG 1 tab(s) orally every 6 hours for 30 days 5 Active Ferrous Sulfate 325 (65 Fe) MG 1 tab(s) orally once a day for 90 days Active ALLBEE PLUS VITAMIN B COMPLEX WITH C AND FOLIC ACID 1 TAB(S) ORALLY ONCE A DAY for 90 DAYS *Please review for potential replacement for e-prescription and drug interaction check* 4 Active Atorvastatin Calcium 40 MG 1 tab(s) orally once a day for 30 days Active Vitamin B-12 1000 MCG 1 tab(s) orally once a day for 90 days 4 Active Albuterol Sulfate 0.63 MG/3ML 2 INH inhaled every 6 hours Active busPIRone HCl 10 MG 1 tab(s) orally 2 times a day Active Vitamin D3 25 MCG 1 tab(s) orally once a day Active Mirtazapine 7.5 MG 2 tab(s) orally once a day (at bedtime) Active Acetaminophen 325 MG 2 tab(s) orally every 6 hours Active JANELL HIVES 24 HOUR 180 MG 1 TAB(S) ORALLY AT BEDTIME for 90 DAYS *Please review for potential replacement for e-prescription and drug interaction check* 5 Active Incruse Ellipta 62.5 MCG (0.0625 MG)/INH 1 INH INHALED EVERY 24 HOURS for 28 DAYS *Please review and pick correct strength-formula tion from [employer] options. If intended option is not shown, discontinue and re-order from Quick Search* 5 Active Ulises-Gest Antacid 500 MG CHEW AND SWALLOW 1 TABLET BY MOUTH ONCE DAILY NEEDED for 90 Active Folic Acid 1 MG 1 tab(s) orally once a day for 90 days Active Naproxen 500 MG 1 tab(s) orally 2 times a day as needed for pain on chest for 5 days Active Clotrimazole 1 % 1 jayson applied topically 2 times a day for 14 days Not-Taking Lactulose 10 GM/15ML 15 mL orally once a day for 30 days Not-Taking Montelukast Sodium 10 MG 1 orally onc1 tab(s)e a day for 30 days Not-Taking Mag-Ox 400 400 MG 1 TAB(S) ORALLY ONCE A DAY for 14 DAYS *Please review and pick correct strength-formula tion from [employer] options. If intended option is not shown, discontinue and re-order from Quick Search* Not-Taking Naltrexone HCl 50 MG 1 tab(s) orally once a day for 28 days Not-Taking Dicyclomine HCl 10 MG 1 caps orally daily and repeat once if needed for cramping for 30 days 4 Not-Taking Carafate 1 GM 1 tab(s) orally 4 times a day (before meals and at bedtime) for 30 days 4 Not-Taking Aspirin Low Dose 81 MG TAKE 1 TABLET BY MOUTH ONCE DAILY for 30 Not-Taking amLODIPine Besylate 10 MG 1 tab(s) orally once a day for 30 days Not-Taking hydroCHLOROthiazide 12.5 MG 1 tab(s) orally every other day for 60 days Not-Taking Methocarbamol 500 MG 2 tab(s) orally twice a day as needed for back pain for 15 days Not-Taking Thiamine 250 MG 2 TAB(S) ORALLY ONCE A DAY for 90 DAYS *Please review and pick correct strength-formula tion from [employer] options. If intended option is not shown, discontinue and re-order from Quick Search* Not-Taking Acetaminophen-Codeine 300-30 MG 1 tab(s) orally every 6 hours for 7 days 4 Not-Taking Cholecalciferol 25 MCG 1 TAB(S) ORALLY ONCE A DAY for 90 DAYS *Please review and pick correct strength-formula tion from [employer] options. If intended option is not shown, discontinue and re-order from Quick Search* 4 Not-Taking Protonix 40 MG 1 tab(s) orally twice a day for 30 days 4 Not-Taking Social History Sex Assigned At : Social History Observation Description Sex Assigned At Female Encounters Encounter Location Date Provider Diagnosis [address] [address] 06/03/2025 Provider Migration Chronic obstructive pulmonary disease, unspecified J44.9 ; Other seasonal allergic rhinitis J30.2 and Other chest pain R07.89 Assessments Encounter Date Diagnosis (ICD Code) Assessment Notes Treatment Notes Treatment Clinical Notes Section Notes 06/03/2025 Chronic obstructive pulmonary disease, unspecified (ICD-10 - J44.9) 06/03/2025 Other seasonal allergic rhinitis (ICD-10 - J30.2) 06/03/2025 Other chest pain (ICD-10 - R07.89) Plan Of Treatment Medication Medication Name Sig Start Date Stop Date Notes JANELL HIVES 24 HOUR 180 MG 1 TAB(S) ORALLY AT BEDTIME for 90 DAYS 05/17/2025 *Please review for potential replacement for e-prescription and drug interaction check* Incruse Ellipta 62.5 MCG (0.0625 MG)/INH 1 INH INHALED EVERY 24 HOURS for 28 DAYS 05/17/2025 *Please review and p ick correct strength-formulation from [employer] options. If intended option is not shown, discontinue and re-order from Quick Search* Ulises-Gest Antacid 500 MG CHEW AND SWALLOW 1 TABLET BY MOUTH ONCE DAILY NEEDED for 90 Folic Acid 1 MG 1 tab(s) orally once a day for 90 days Naproxen 500 MG 1 tab(s) orally 2 times a day as needed for pain on chest for 5 days Next Appt Details Provider Name:Hubert Henry, 09/01/2025 10:20:00 AM, [address] [place] [address], [phone], Progress Notes * Sandra SANCHEZDOB:1965 ( 60 yo F)Acc No.[id number]:06/03/2025 Patient: Sandra KURTZ Provider: :1965 A ge:59 Y S ex:Female Date:06/03/2025 Address:[address] [place], [place] [id number] Pcp:Hubert Henry Subjective: * Chief Complaints: * 1 . Multum To Medispan Conversion Encounter. * Medical History: * Medications: T aking Acetaminophen 325 MG Tablet 2 tab(s) orally every 6 hours , Taking Mirtazapine 7.5 MG Tablet 2 tab(s) orally once a day (at bedtime) , Taking Vitamin D3 25 MCG Tablet 1 tab(s) orally once a day , Taking busPIRone HCl 10 MG Tablet 1 tab(s) orally 2 times a day , Taking Albuterol Sulfate 0.63 MG/3ML Nebulization Solution 2 INH inhaled every 6 hours , Taking Vitamin B-12 1000 MCG Tablet 1 tab(s) orally once a day , Taking Atorvastatin Calcium 40 MG Tablet 1 tab(s) orally once a day , Taking ALLBEE PLUS VITAMIN B COMPLEX WITH C AND FOLIC ACID TABLET 1 TAB(S) ORALLY ONCE A DAY , Notes to Pharmacist: *Please review for potential replacement for e- prescription and drug interaction check*, Taking Ferrous Sulfate 325 (65 Fe) MG Tablet 1 tab(s) orally once a day , Taking LORazepam 1 MG Tablet 1 tab(s) orally every 6 hours , Taking Levothyroxine Sodium 137 MCG Tablet 1 tab(s) orally once a day , Taking Losartan Potassium 100 MG Tablet 1 tab(s) orally once a day , Taking Pregabalin 200 MG Capsule 1 cap(s) orally 2 times a day , Taking Nicoderm CQ 14 MG/24HR Patch 24 Hour 1 PATCH transdermally once a day , Taking predniSONE 10 MG Tablet 3 tabs daily for 2weeks, then 2 daily for 2 weeks, then one daily orally once a day , Taking Solifenacin Succinate 10 MG Tablet 1 tab(s) orally once a day , Taking POTASSIUM CHLORIDE (EQV-K-TAB) 10 MEQ TABLET, EXTENDED RELEASE TAKE 1 TABLET BY MOUTH TWO (2) TIMES A DAY , Notes to Pharmacist: *Please review for potential replacement for e-prescription and drug interaction check*, Taking Furosemide 20 MG Tablet 1 tab(s) orally once a day , Taking SEROquel 50 MG Tablet 1 tab(s) orally 3 times a day , Taking Symbicort 160-4.5 MCG/ACT Aerosol INHALE 2 PUFF BY MOUTH two (2) times a day. rinse mouth and throat after use inhaled 2 times a day; May use 2 puffs as needed every 4 hours for shortness of breath: Maximum: 12 puffs/24 hours , Not- Taking/PRN MiraLax - POWDER FOR RECONSTITUTION DIRECTED ORALLY ONCE A DAY , Notes to Pharmacist: *Please review and pick correct strength-formulation from [employer] options. If intended option is not shown, discontinue and re-order from Quick Search*, Not-Taking/PRN Lidocaine 5 % Patch 1 PATCH applied topically once a day , Not-Taking/PRN Silver sulfADIAZINE 1 % Cream 1 jayson applied topically 2 times a day , Not-Taking/PRN oxyCODONE HCl 5 MG Tablet 1 tab(s) orally every 6 hours , Not-Taking/PRN guaiFENesin 100 MG/5ML Liquid 10 mL orally every 4 hours , Not-Taking/PRN Thiamine 250 MG TABLET 2 TAB(S) ORALLY ONCE A DAY , Notes to Pharmacist: *Please review and pick correct strength-formulation from [employer] options. If intended option is not shown, discontinue and re-order from Quick Search*, Not-Taking/PRN Methocarbamol 500 MG Tablet 2 tab(s) orally twice a day as needed for back pain , Not-Taking/PRN Protonix 40 MG Tablet Delayed Release 1 tab(s) orally twice a day , Not-Taking/PRN Cholecalciferol 25 MCG TABLET 1 TAB(S) ORALLY ONCE A DAY , Notes to Pharmacist: *Please review and pick correct strength-formulation from [employer] options. If intended option is not shown, discontinue and re-order from Quick Search*, Not-Taking/PRN Acetaminophen- Codeine 300-30 MG Tablet 1 tab(s) orally every 6 hours , Not-Taking/PRN hydroCHLOROthiazide 12.5 MG Tablet 1 tab(s) orally every other day , Not-Taking/PRN amLODIPine Besylate 10 MG Tablet 1 tab(s) orally once a day , Not-Taking/PRN Aspirin Low Dose 81 MG Tablet Delayed Release TAKE 1 TABLET BY MOUTH ONCE DAILY , Not-Taking/PRN Carafate 1 GM Tablet 1 tab(s) orally 4 times a day (before meals and at bedtime) , Not-Taking/PRN Dicyclomine HCl 10 MG Capsule 1 caps orally daily and repeat once if needed for cramping , Not-Taking/PRN Montelukast Sodium 10 MG Tablet 1 orally onc1 tab(s)e a day , Not-Taking/PRN Lactulose 10 GM/15ML Solution 15 mL orally once a day , Not-Taking/PRN Clotrimazole 1 % Cream 1 jayson applied topically 2 times a day , Not-Taking/PRN Naltrexone HCl 50 MG Tablet 1 tab(s) orally once a day , Not-Taking/PRN Mag-Ox 400 400 MG TABLET 1 TAB(S) ORALLY ONCE A DAY , Notes to Pharmacist: *Please review and pick correct strength-formulation from Med[employer] options. If intended option is not shown, discontinue and re-order from Quick Search* * Allergies: c loNIDine: insomnia/nightmares - Side Effects. Objective: * Vitals: Assessment: * Assessment: 1. C hronic obstructive pulmonary disease, unspecified - J44.9 2 . O ther seasonal allergic rhinitis - J30.2 3 . O ther chest pain - R07.89 ? Plan: * Treatment: 2. O ther seasonal allergic rhinitis Start JANELL HIVES 24 HOUR TABLET, 180 MG, 1 TAB(S), ORALLY, AT BEDTIME, 90 DAYS, 90, Refills 0, Notes to Pharmacist: *Please review for potential replacement for e-prescription and drug interaction check*. 3. O ther chest pain Refill Naproxen Tablet, 500 MG, 1 tab(s), orally, 2 times a day as needed for pain on chest, 5 days, 10, Refills 0. 4. O thers Start Folic Acid Tablet, 1 MG, 1 tab(s), orally, once a day, 90 days, 90, Refills 0; S tart Ulises-Gest Antacid Tablet Chewable, 500 MG, CHEW AND SWALLOW 1 TABLET BY MOUTH ONCE DAILY NEEDED, 90, 90 Tablet, Refills 0. * Images: Billing Information: * Visit Code: * Procedure Codes: * Electronic signature of Prov ider Migration on 08/21/2025 at 10:31 AM EST Sign off status: Pending * Provider: Date: 0 06/03/2025 Generated for Nury wing/Hamilton/Mona on: 10/22/2024 10:31 AM EST
--- NOTE | ~2025-08-21 | XR_ITS ---
Exam: X-ray, bilateral knees.XR KNEE 1-2 VIEWS BILATERAL TECHNIQUE: Four views lower extremity joint, bilateral knees INDICATION: M25.50 - Pain in unspecified joint COMPARISON: None available. FINDINGS: RIGHT KNEE: There is diffuse osteopenia. There is moderate narrowing of the medial compartment and mild narrowing in the lateral. There is no joint effusion. There are tricompartmental marginal osteophytes, largest in the patellofemoral joint. Soft tissue ossifications are seen superficial to patellar tendon. There is atherosclerotic calcification in the femoral and popliteal artery. LEFT KNEE: There is diffuse osteopenia. There is moderate narrowing of medial compartment and mild narrowing of the lateral. There is no joint effusion. There are tricompartmental marginal osteophytes, largest in the patellofemoral joint. There are moderate atherosclerotic calcifications. XR/XR Knee Osmin 1or 2V IMPRESSION: Right knee: Moderate osteoarthritis. Left knee: Moderate osteoarthritis. Electronically signed by: Preston Alfredo MD 08/21/2025 10:06 AM [facility]
--- NOTE | ~2025-08-21 | XR_ITS ---
Exam: XR FOOT 3 OR MORE VIEWS BILATERAL, bilateral foot x-rays TECHNIQUE: AP, OBL and lateral views lower extremity, bilateral feet INDICATION: M25.50 - Pain in unspecified joint COMPARISON: None available. FINDINGS: RIGHT FOOT: There is diffuse osteopenia. There are osteophytes involving the IP joint of the great toe. There is also joint space narrowing and marginal osteophytes involving the DIP and PIP joints in the toes. There are marginal osteophytes in the dorsal midfoot. There are small calcaneal spurs at the plantar fascia and Achilles tendon attachments. Moderate atherosclerotic calcifications are evident. LEFT FOOT: There is diffuse osteopenia. There is hallux valgus deformity. There are marginal osteophytes involving the interphalangeal joints of the toes. There is minimal marginal osteophyte formation involving the first MTP and tarsometatarsal joints. There are marginal sites involving the dorsal midfoot. There is a small plantar calcaneus spur. There are moderate atherosclerotic calcifications. XR/XR Foot Osmin 3V IMPRESSION: Right foot: Mild changes of osteoarthritis. Left foot: Mild changes of osteoarthritis and mild hallux valgus deformity. Electronically signed by: Preston Alfredo MD 08/21/2025 10:10 AM [facility]
--- OUTSIDE RECORDS SUMMARY | 2025-08-21 10:30 | XMS_ITS | Encounter Summary ---
Author Organization Address [address] [place] [address] Care Team Providers Care Metal Mold Dresser Name Role Phone Hubert Henry MD Primary Care Provider [phone] Encounter Details Date Type Department Care Team (Late Contact Info) Description 03/17/[address] [facility] - Main Lab [address] [facility] [place] [address] Hubert Henry MD [address] [place] [address] Frequency of micturition Social History Tobacco Use [...] AM EST Office Visit Bariatric Surgery - [employer] [address] [place] [address] Marianna Szymanski MD [address] [place] [phone] documented as of this encounter Procedures [...] reflex microscopic (03/17/2025 12:00 AM EDT) Specific [place] Urine 1.014 1.003 - 1.030 LAB URINALYSIS - AUTOMATED METHOD 03/17/2025 8:35 PM [facility] pH, Urine 5.5 5.0 - 8.0 pH LAB URINALYSIS - AUTOMATED METHOD 03/17/2025 8:35 PM [facility] Leukocytes, Urine Moderate(A) Negative LAB URINALYSIS - AUTOMATED METHOD 03/17/2025 8:35 PM [facility] Nitrite, Urine Negative Negative LAB URINALYSIS - AUTOMATED METHOD 03/17/2025 8:35 PM [facility] Protein, Urine Negative <=Trace mg/dL LAB URINALYSIS - AUTOMATED METHOD 03/17/2025 8:35 PM [facility] Glucose, Urine Negative Negative mg/dL LAB URINALYSIS - AUTOMATED METHOD 03/17/2025 8:35 PM [facility] Ketones, Urine Negative Negative mg/dL LAB URINALYSIS - AUTOMATED METHOD 03/17/2025 8:35 PM EDT [facility] Urobilinogen , Urine 0.2 0.2 - 1.0 mg/dL LAB URINALYSIS - AUTOMATED METHOD 03/17/2025 8:35 PM [facility] Bilirubin, Urine Negative Negative LAB URINALYSIS - AUTOMATED METHOD 03/17/2025 8:35 PM [facility] Blood, Urine Negative Negative LAB URINALYSIS - AUTOMATED METHOD 03/17/2025 8:35 PM [facility] RBC, Urine 4.7(H) 0 - 4 /HPF LAB URINALYSIS - AUTOMATED METHOD 03/17/2025 8:35 PM [facility] WBC, Urine 24.3(H) 0 - 4 /HPF LAB URINALYSIS - AUTOMATED METHOD 03/17/2025 8:35 PM [facility] Squamous Epithelial, Urine 15 0 - 60 /LPF LAB URINALYSIS - AUTOMATED METHOD 03/17/2025 8:35 PM [facility] Bacteria, Urine Many(A) Negative /HPF LAB URINALYSIS - AUTOMATED METHOD 03/17/2025 8:35 PM [facility] Hyaline Casts, Urine 0.4 0 - 3 /LPF LAB URINALYSIS - AUTOMATED METHOD 03/17/2025 8:35 PM [facility] Urine Urine specimen obtained by clean catch procedure / Unknown 03/17/2025 03/17/2025 7:18 PM EDT us Hubert Henry MD LAB URINE ORDERABLES Final Re sult [facility] [address] [place] [address], [place] [phone] * (ABNORMAL) Culture urine (03/17/2025 12:00 AM EDT) Culture, Urine 50,000-100,000 CFU/mL Escherichia coli(A) EBONI 03/19/2025 12:13 PM EDT [facility] Urine Urine specimen obtained by [...] OR DERABLES Final Result Performing Organization Address City/State/[facility] Co de Phone Number [facility] [address] [place] [address], documented in this encounter Visit Diagnoses Diagnosis Frequency of micturition Urinary frequency documented in this encounter Care Teams Metal Mold Dresser Relationship Specialty Start Date End Date Hubert Henry MD [address] [place] [address] PCP - General Internal Medicine 06/23/22 documented as of this encounter
--- OUTSIDE RECORDS SUMMARY | 2025-08-21 10:30 | XMS_ITS | Clinical Summary ---
Author Organization [facility] Address [address] [place] [address] Phone Care Team Providers Care Aviculturist Name Role Phone Hubert Henry MD Primary Care Provider [phone] Allergies Active Allergy Reactions Criticality Noted Date [...] 11/21/2024 Morbid obesity due to excess calories ([facility] V24, [facility] V28) 11/08/2024 Acute on chronic anemia 09/14/2024 Colitis 09/14/2024 Aspiration pneumonia ([facility] V24, [facility] V28) 09/14/2024 Hypoalbuminemia due to prote in-calorie malnutrition ([facility] V24) 09/09/2024 Edema due to hypoalbuminemia 09/09/2024 Hyperchloremic metabolic acidosis 09/08/2024 Polyneuropathy associated wi critical illness ([facility] V24) 08/20/2024 Fatty liver 08/10/2024 Troponin level elevated 08/10/2024 On mechanically assisted albert tilation ([facility] V24, [facility] V28) 08/10/2024 Endotracheally intubated 08/10/2024 Acute pulmonary edema ([facility] V24, [facility] V28) 08/10/2024 Urinary tract infection, site not specified 07/22 Klebsiella infection 08/09/2024 Alcohol dependence ([facility] [place], [facility] V28) Septic shock ([facility] [place], [facility] V28) 08/04/20 Pneumoperitoneum 08/04/2024 Resolved Problems Problem Noted Date Diagnosed Date Resolved Date Malfunction of jejunostomy t ube ([facility] V24, [facility] V28) 10/29/2024 11/08/2024 ABLA (acute blood loss anemia) 09/14/2024 09/14/2024 Acute respiratory failure wi th hypoxemia ([facility] [place], [facility] V28) 08/10/2024 11/08/2024 Pyelonephritis 08/04/2024 11/08/2024 Transaminitis 08/04/2024 11/08/2024 NARCISO (acute kidney injury) ([facility] [place]24) 08/04/2024 11/08/2024 Encounters Date Type Department Care Team Description 07/27/2025 9:28 AM EST - 07/27/2025 11:59 PM EST Hospital Encounter [facility] [address] [place] [address] Encounter for screening mammogram for malignant neoplasm of breast Discharge Disposition: Home or Self Care 07/26/2025 4:00 PM EST Office Visit Bariatric Surgery [facility] [address] [phone] Yecenia Haynes MD S/P gastric bypass (Primary Dx); Hx of iron deficiency; Left lower quadrant abdominal pain; Diastasis recti; Constipation, unspecified constipation type 06/20/2025 Telephone Bariatric Surgery [address] [phone] Yecenia Haynes MD 06/19/2025 Telephone [address]astroenterology [address] [phone] Kevin Guardado MD 06/16/2025 9:29 AM EDT - 06/16/2025 11:59 PM EDT Hospital Encounter [facility] CT Scan [address] [place] [phone] Incisional hernia, without obstruction or gangrene Discharge Disposition: Home or Self Care 05/30/2025 2:30 PM EDT Office Visit Bariatric Surgery - [address] [place] [address] Yecenia Haynes MD Incisional hernia, without obstruction or gangrene (Primary Dx); Abnormal laboratory test from Last 3 Months Immunizations Immunization Administration Dates Next Due Hepatitis B (Weubdmt-G-Lcrzs , Recombivax HB-Adult) 19yo and older 11/11/2022,02/20/2021 Influenza Quadrivalent, 0.5m l, preservative free (Fluarix; FluLaval; Fluzone) ages 6mo and older (Afluria) 3yo and older 08/28/2023,11/11/2022 Influenza trivalent, with pr eservative (Fluzone; Afluria) 6mo and older 08/28/2021 Surgical History Surgery Date Site/Laterality Comments HERNIA REPAIR PROCEDURE: HISTORICAL HERNIA REPAIR/ING OTHER SURGICAL HISTORY PROCEDURE: [place] ECTOPIC ABDL GASTRIC BYPASS 09/21/2007 PROCEDURE: [...] AM EST Office Visit Bariatric Surgery - [address] [place] [address] Marianna Szymanski MD [address] [place] [phone] Health Maintenance Due Date Last Done Comments [...] year. Mammo Location: [facility], [address] [place] [address], [phone], . -------- FINAL REPORT -------- Dictated By: Sivakumar Alatorre Dictated Date: 07/27/2025 10:04 ET Assigned Physician: Sivakumar Alatorre Reviewed and Electronically Signed By: Sivakumar Alatorre Signed Date: 07/27/2025 11:03 ET Workstation ID: [id number] Transcribed By: Self Edit Transcribed Date: 07/27/2025 [...] year. Mammo Location: [facility], [address] [place] [address], [address], . -------- FINAL REPORT -------- Dictated By: Sivakumar Alatorre Dictated Date: 07/27/2025 10:04 ET Assigned Physician: Sivakumar Alatorre Reviewed and Electronically Signed By: Sivakumar Alatorre Signed Date: 07/27/2025 11:03 ET Workstation ID: [id number] Transcribed By: Self Edit Transcribed Date: 07/27/2025 [...] Signed Date: 06/21/2025 12:07 ET Workstation ID: [id number] Transcribed By: Self Edit Transcribed Date: 06/21/2025 [...] small bowel resections of small bowel obstruction. Apia-ge-Ltzoysrc bypass. BONES AND SOFT TISSUES: Scattered degenerative [...] Signed Date: 06/21/2025 12:07 ET Workstation ID: [id number] Transcribed By: Self Edit Transcribed Date: 06/21/2025 12:02 ET Yecenia Haynes MD IMG CT PROCEDURES Final Result * Iron and TIBC (05/30/2025 3:02 PM EDT) Iron 106 40 - 150 mcg/dL LAB CHEMISTRY METHOD 05/30/2025 7:42 PM EDT [facility] TIBC 322 250 - 450 mcg/dL LAB CHEMISTRY METHOD 05/30/2025 7:42 PM EDT [facility] Iron Saturation 33 15 - 50 % LAB CHEMISTRY METHOD 05/30/2025 7:42 PM EDT [facility] Blood Venous blood specimen / Unknown Venipuncture / Unknown 05/30/2025 3:02 PM EDT 05/30/2025 3:02 PM EDT us Yecenia Haynes MD LAB BLOOD ORDERABLES Fi nal Result Performing Organization Address City/[facility] Co de Phone Number [facility] [address] [place] [address], * Zinc (05/30/2025 3:02 PM EDT) Zinc 90 60 - 130 ug/dL 06/02/2025 10:25 AM EDT [facility] Comment: Elevated results may be due to sample collected in a non-certified trace element-free tube. This test was developed and the performance characteristics determined by [facility]. It has not been cleared or approved by the FDA. The laboratory is regulated under CLIA as qualified to perform high-complexity testing. This test is used for patient testing purposes. It should not be regarded as investigational or for research. Test performed at [facility], [address] , [place] [address] Yudith Geiger MD, PhD - Prism Measurer Blood Venous blood specimen / Unknown Venipuncture / Unknown 05/30/2025 3:02 PM EDT 05/30/2025 3:02 PM EDT Yecenia Haynes MD LAB BLOOD ORDERABLES Fi nal Result Performing Organization Address [facility] Co de Phone Number [facility] [address] [place] [address] * Vitamin D 25 hydroxy (05/30/2025 3:02 PM EDT) Vit D, 25-Hydroxy 48.4 30.0 - 80.0 ng/mL LAB CHEMISTRY METHOD 05/30/2025 10:04 PM EDT [facility] Blood Venous blood specimen / Unknown Venipuncture / Unknown 05/30/2025 3:02 PM EDT 05/30/2025 3:02 PM EDT us Yecenia Haynes MD LAB BLOOD ORDERABLES Fi nal Result [facility] [address] [place] [address], * (ABNORMAL) Comprehensive metabolic panel (03/10/2025 11:30 AM EDT) Sodium 143 133 - 145 mmol/L LAB CHEMISTRY METHOD 03/10/2025 4:46 PM EDT [facility] Potassium 4.0 3.5 - 5.5 mmol/L LAB CHEMISTRY METHOD 03/10/2025 4:46 PM EDT [facility] Chloride 111(H) 96 - 110 mmol/L LAB CHEMISTRY METHOD 03/10/2025 4:[address] [facility] CO2 24 21 - 32 mmol/L LAB CHEMISTRY METHOD 03/10/2025 4:[address] [facility] Anion Gap 8 3 - 11 LAB CHEMISTRY METHOD 03/10/2025 4:[address] [facility] Glucose 88 70 - 100 mg/dL LAB CHEMISTRY METHOD 03/10/2025 4:[address] [facility] BUN 13 5 - 25 mg/dL LAB CHEMISTRY METHOD 03/10/2025 4:[address] [facility] Creatinine 0.61 0.50 - 1.10 mg/dL LAB CHEMISTRY METHOD 03/10/2025 4:[address] [facility] eGFR 102 >=60 mL/min/1. 73m2 LAB CHEMISTRY METHOD 03/10/2025 4:[address] [facility] Comment:Calculation based on the Chronic Kidney Disease Epidemiology Collaboration (CKD-EPI) equation refit without adjustment for race. BUN/Creatinine Ratio 21.3 LAB CHEMISTRY METHOD 03/10/2025 4:[address] [facility] Calcium 9.1 8.5 - 10.5 mg/dL LAB CHEMISTRY METHOD 03/10/2025 4:[address] [facility] AST (SGOT) 22 10 - 42 unit/L LAB CHEMISTRY METHOD 03/10/2025 4:46 PM EDT [facility] ALT (SGPT) 23 10 - 60 unit/L LAB CHEMISTRY METHOD 03/10/2025 4:46 PM EDT [facility] Alkaline Phosphatase 104 42 - 121 unit/L LAB CHEMISTRY METHOD 03/10/2025 4:46 PM EDT [facility] Total Protein 7.3 6.0 - 8.0 g/dL LAB CHEMISTRY METHOD 03/10/2025 4:46 PM EDT [facility] Albumin 3.3 3.2 - 5.0 g/dL LAB CHEMISTRY METHOD 03/10/2025 4:46 PM EDT [facility] Total Bilirubin 0.3 0.0 - 1.4 mg/dL LAB CHEMISTRY METHOD 03/10/2025 4:46 PM EDT [facility] Blood Venous blood specimen / Unknown Venipuncture / Unknown 03/10/2025 11:30 AM EDT 03/10/2025 11:30 AM EDT Yecenia Haynes MD LAB BLOOD ORDERABLES Fi nal Result [facility] [address] [place] [address], from Last 3 Months or Most Recently Relevant to Health Maintenance Insurance [facility] [employer] MEDIC[employer] Member Subscriber Plan / Payer (Ef fective 2016-Present) Name:SANDRA MARTINS Relation to Subscriber:Self Name:Sandra Martins Payer ID:[id number] Group ID:[id number] Type:Not on file Address: [address] [facility] [place] [id number] Advance Directives Documents on File Type Date Recorded Patient Reimbursement Liaison Expl anation Advance Directives and Living Will [...] First Alternate Health Care Agent Care Teams Aviculturist Relationship Specialty Start Date End Date Hubert Henry MD [address] [place] [address] [place] PCP - General Internal Medicine 06/23/22
--- OUTSIDE RECORDS SUMMARY | 2025-08-21 10:30 | XMS_ITS | Encounter Summary ---
Author Organization [facility] Address [address] [place] [address] Care Team Providers Care Procedures Analyst Name Role Phone Hubert Henry MD Primary Care Provider [phone] Encounter Details Date Type Department Care Team (Late st Contact Info) Description 04/11/2025 Lab Requisition [facility] - Main Lab [address] [facility] [place] [address] Hubert Henry MD [address] [place] [address] Dysuria Social History Tobacco Use Types Packs/Day [...] AM EST Office Visit Bariatric Surgery - [place] [address] [place] [address] Marianna Szymanski MD [address] [place] [phone] documented as of this encounter Procedures Procedure Name Priority Date/Time Associated Diagnosis Comments URINALYSIS WITH REFLEX MICROSCOPIC Routine 04/11/2025 4:30 PM EDT Dysuria URINALYSIS WITH REFLEX MICROSCOPIC Routine 04/11/2025 4:30 PM EDT Dysuria CULTURE URINE Routine 04/11/2025 4:30 PM EDT Dysuria documented in this encounter Results * Urinalysis with reflex microscopic (04/11/2025 4:30 PM EDT) Specific [place] Urine 1.018 1.003 - 1.030 LAB URINALYSIS - AUTOMATED METHOD 04/11/2025 4:48 PM [facility] pH, Urine 5.5 5.0 - 8.0 pH LAB URINALYSIS - AUTOMATED METHOD 04/11/2025 4:48 PM [facility] Leukocytes, Urine Negative Negative LAB URINALYSIS - AUTOMATED METHOD 04/11/2025 4:48 PM [facility] Nitrite, Urine Negative Negative LAB URINALYSIS - AUTOMATED METHOD 04/11/2025 4:48 PM [facility] Protein, Urine Negative <=Trace mg/dL LAB URINALYSIS - AUTOMATED METHOD 04/11/2025 4:48 PM [facility] Glucose, Urine Negative Negative mg/dL LAB URINALYSIS - AUTOMATED METHOD 04/11/2025 4:48 PM [facility] Ketones, Urine Negative Negative mg/dL LAB URINALYSIS - AUTOMATED METHOD 04/11/2025 4:48 PM [facility] Urobilinogen, Urine 0.2 0.2 - 1.0 mg/dL LAB URINALYSIS - AUTOMATED METHOD 04/11/2025 4:[address] [facility] Bilirubin, Urine Negative Negative LAB URINALYSIS - AUTOMATED METHOD 04/11/2025 4:[address] [facility] Blood, Urine Negative Negative LAB URINALYSIS - AUTOMATED METHOD 04/11/2025 4:[address] [facility] Urine Urine specimen obtained by clean catch procedure / Unknown Non-blood Collection / Unknown 04/11/2025 4:30 PM EDT 04/11/2025 4:32 PM EDT us Hubert Henry MD LAB URINE ORDERABLES Final Re sult Performing Organization Address City/[facility]/ZIP Co de Phone Number [facility] [address] [place] [address], [place] [phone] * Culture urine (04/11/2025 4:30 PM EDT) Culture, Urine 10,000-49,000 CFU/mL Mixed bacterial morphotypes present suggestive of possible contamination during collection. Suggest appropriate recollection if clinically indicated. 04/12/2025 3:[address] [facility] Urine Urine specimen obtained by clean catch procedure / Unknown Non-blood Collection / Unknown 04/11/2025 4:30 PM EDT 04/11/2025 4:32 PM EDT Hubert Henry MD LAB MICROBIOLOGY - GENERAL OR DERABLES Edited Result - Final Performing Organization Address City/[facility]/ZIP Co de Phone Number [facility] [address] [place] [address], [place] [phone] documented in this encounter Visit Diagnoses Diagnosis Dysuria documented in this encounter Care Teams Procedures Analyst Relationship Specialty Start Date End Date Hubert Henry MD [address] [place], [place] PCP - General Internal Medicine 06/23/22 documented as of this encounter
--- OUTSIDE RECORDS SUMMARY | 2025-08-21 10:30 | XMS_ITS | Encounter Summary ---
Author Organization [facility] Address [address] [place] [address] Care Team Providers Care Power Chisel Operator Name Role Phone Hubert Henry MD Primary Care Provider [phone] Encounter Details Date Type Department Care Team ([facility] Contact Info) Description 03/21/2025 Lab Requisition [facility] - Main Lab [address] [place] [address] Hubert Henry MD [address] [place], [place] Polymyalgia rheumatica (CMS/HCC V24) Social History [...] Upcoming Encounters Date Type Department Care Team ([facility] Contact Info) Description 11/07/2025 9:00 AM EST Office Visit Bariatric Surgery - [place] [address] [place] [address] Marianna Szymanski MD [address] [place] [phone] documented as of this encounter Procedures Procedure Name Priority Date/Time Associated Diagnosis Comments CENTROMERE ANTIBODIES Routine 03/21/2025 9:41 AM EDT Polymyalgia rheumatica ([facility] V24) RICCO IFA WITH TITER AND PATTERN Routine 03/21/2025 9:41 AM EDT Polymyalgia rheumatica ([facility] V24) CBC WITH AUTO DIFFERENTIAL Routine 03/21/2025 9:41 AM EDT Polymyalgia rheumatica ([facility] V24) SEDIMENTATION RATE Routine 03/21/2025 9: 41 AM EDT Polymyalgia rheumatica ([facility] V24) CBC AND DIFFERENTIAL Routine 03/21/2025 9:41 AM EDT Polymyalgia rheumatica ([facility] V24) C-REACTIVE PROTEIN Routine 03/21/2025 9: 41 AM EDT Polymyalgia rheumatica ([facility] V24) documented in this encounter Results * (ABNORMAL) CBC auto differential (03/21/2025 9:41 AM EDT) WBC 5.9 4.8 - 10.8 K/mcL LAB HEMETOLOGY METHOD 03/21/2025 5:25 PM EDT [facility] RBC 4.70 3.80 - 4.80 M/mcL LAB HEMETOLOGY METHOD 03/21/2025 5:25 PM EDT [facility] Hemoglobin 13.1 11.5 - 16.0 g/dL LAB HEMETOLOGY METHOD 03/21/2025 5:25 PM EDT [facility] Hematocrit 41.9 35.0 - 47.0 % LAB HEMETOLOGY METHOD 03/21/2025 5:25 PM EDT [facility] MCV 88.6 79.0 - 98.0 FL LAB HEMETOLOGY METHOD 03/21/2025 5:25 PM EDT [facility] MCH 27.7 27.0 - 32.0 pcg LAB HEMETOLOGY METHOD 03/21/2025 5:25 PM EDT [facility] MCHC 31.3(L) 32.0 - 37.0 g/dL LAB HEMETOLOGY METHOD 03/21/2025 5:25 PM EDT [facility] RDW 13.1 11.0 - 15.0 % LAB [facility] 290 130 - 400 K/mcL LAB HEMETOLOGY METHOD 03/21/2025 5:25 PM EDT [facility] MPV 12.5(H) 7.0 - 11.0 FL LAB HEMETOLOGY METHOD [facility]25 [facility] NRBC 0.0 <1.0 % LAB HEMETOLOGY METHOD 03[facility]2025 [facility] NRBC Absolute 0.00 <0.10 K/mcL LAB HEMETOLOGY METHOD 03/21/2025 5:25 PM EDT [facility] Neutrophils Relative 30.8 % LAB HEMETOLOGY METHOD 03/21/2025 5:25 PM EDT [facility] Lymphocytes Relative 56.1 % LAB HEMETOLOGY METHOD 03/21/2025 5:25 PM EDT [facility] Monocytes Relative 9.8 % LAB HEMETOLOGY METHOD 03/21/2025 5:25 PM EDT [facility] Eosinophils Relative 2.4 % LAB HEMETOLOGY METHOD 03/21/2025 5:25 PM EDT [facility] Basophils Relative 0.7 % LAB HEMETOLOGY METHOD 03/21/2025 5:25 PM EDT [facility] Immature Granulocytes Relative 0.2 % LAB HEMETOLOGY METHOD 03/21/2025 5:25 PM EDT [facility] Neutrophils Absolute 1.82 1.50 - 7.00 K/mcL LAB HEMETOLOGY METHOD 03/21/2025 5:25 PM EDT [facility] Lymphocytes Absolute 3.31 1.00 - 5.00 K/mcL LAB HEMETOLOGY METHOD 03/21/2025 5:25 PM EDT [facility] Monocytes Absolute 0.58 0.20 - 1.00 K/mcL LAB HEMETOLOGY METHOD 03/21/2025 5:25 PM EDT [facility] Eosinophils Absolute 0.14 0.00 - 0.50 K/mcL LAB HEMETOLOGY METHOD 03/21/2025 5:25 PM EDT [facility] Basophils Absolute 0.04 0.00 - 0.20 K/mcL LAB HEMETOLOGY METHOD 03/21/2025 5:25 PM EDT [facility] Immature Granulocytes Absolute 0.01 0.00 - 0.03 K/mcL LAB HEMETOLOGY METHOD 03/21/2025 5:25 PM EDT [facility] Blood Venous blood specimen / Unknown 03/21/2025 9:41 AM EDT 03/21/2025 5:13 PM EDT us Hubert Henry MD LAB BLOOD ORDERABLES Final Re sult [facility] [address] [place] [address], * RICCO IFA with titer and pattern (03/21/2025 9:41 AM EDT) RICCO Negative Negative 03/23/2025 11:41 AM EDT [facility] Blood Venous blood specimen / Unknown 03/21/2025 9:41 AM EDT 03/21/2025 5:13 PM EDT Hubert Henry MD LAB BLOOD ORDERABLES Final Re sult [facility]) [facility] [address] [place] [address], [place] [phone] * Centromere antibodies (03/21/2025 9:41 AM EDT) Pathologist [facility] Centromere Antibody 0.7 <7.0 U/mL 03/27/2025 11:34 AM EDT [facility] Comment: INTERPRETATION: Negative Test performed at [facility], [address], [place] [address] Yudith Geiger MD, PhD - Dry Cleaner Apprentice Blood Venous blood specimen / Unknown 03/21/2025 9:41 AM EDT 03/21/2025 5:13 PM EDT Hubert Henry MD LAB BLOOD ORDERABLES Final Re sult Performing Organization Address [facility]/ZIP Co de Phone Number [facility] [address] [place] [address] * C-reactive protein (03/21/2025 9:41 AM EDT) [facility] C-Reactive Protein <0.29 <=0.50 mg/dL LAB CHEMISTRY METHOD 03/21/2025 6:25 PM EDT [facility] Blood Venous blood specimen / Unknown 03/21/2025 9:41 AM EDT 03/21/2025 5:13 PM EDT Hubert Henry MD LAB BLOOD ORDERABLES Final Re sult [facility] [address] [place] [address], [place] [phone] * (ABNORMAL) Sedimentation rate (03/21/2025 9:41 AM EDT) Sed Rate 74(H) 0 - 30 mm/hr LAB HEMETOLOGY METHOD 03/21/2025 5:47 PM EDT [facility] Blood Venous blood specimen / Unknown 03/21/2025 9:41 AM EDT 03/21/2025 5:13 PM EDT Hubert Henry MD LAB BLOOD ORDERABLES Final Re sult Performing Organization Address [facility] Co de Phone Number [facility] [address] [place] [address], documented in this encounter Visit Diagnoses Diagnosis Polymyalgia rheumatica (CMS/HCC V24) Polymyalgia rheumatica documented in this encounter Care Teams Power Chisel Operator Relationship Specialty Start Date End Date Hubert Henry MD [address] [place], [place] PCP - General Internal Medicine 06/23/22 documented as of this encounter
--- OUTSIDE RECORDS SUMMARY | 2025-08-21 10:31 | XMS_ITS | Patient Health Record ---
Author Organization [facility] Address [address] [place] [address] Care Team Providers Care Vest Finisher Name Role Phone Hubert Henry Primary Care Provider [phone] [facility], Nursing Unavailable [phone] Lev Mcelroy Unavailable [phone] Migration, Provider Unavailable Unavailable Allergies Allergen (clinical [...] Reviewed date:05/25/2025 02:44:18 PM Interpretation:negative Performing Lab:NL2, [facility] [address] Lisa Malagon, Director - [address] [place] [address] Notes/Report: NON-FASTING CLINICAL INFORMATION: None g iven LMP: NONE GIVEN PREV. PAP: NONE GIVEN PREV. BX: NONE GIVEN SOURCE: None given STATEMENT OF ADEQUACY: Satisfactory for evaluation. Endocervical/transforma tion zone component present. INTERPRETATION/RESULT: Cytology Results: Negative for intraepithelial lesion or malignancy. COMMENT: This Pap test has been evaluated with the ThinPrep(R) Imaging System. INFORMATION SECURITY DIRECTOR: CHANDRAKANT ROBERTS(ASCP) CT Screening Location: [facility] [address], [place] [address]. CLIA: [id number] Slide preparation performed at: [facility], [address] [place] [id number] CLIA: [id number] COMMENT EXPLANATORY NOTE: The Pap is a [...] test SurePath(TM) specimens have been determined by [facility]. The modifications have not been cleared or approved by the FDA. This assay has been validated pursuant to the CLIA regulations and is used for clinical purposes. For additional information, please refer to https://education.Asysco/faq/FAQ 154 (This link is being provided for information/ educational purposes only.) URINALYSIS WITH REFLEX MICRO SCOPIC Reviewed date:04/11/2025 05:42:41 PM Interpretation:Negative Performing Lab: Notes/Report: Specific [place] Urine 1.018 1.003-1.030 pH, Urine 5.5 5.0-8.0 [...] 02:00:45 PM Interpretation:leukocytes Performing Lab: Notes/Report: Specific [place] Urine 1.014 1.003-1.030 pH, Urine 5.5 5.0-8.0 [...] <7.0 U/mL INTERPRETATION: Negative Test performed at [facility], [address] [place] [address] Yudith Geiger MD, PhD - [employer] CT Abdomen Pelvis WO Cont Reviewed date:06/22/2025 05:48:19 PM Interpretation:Abnormal Performing Lab: Notes/Report: Abnormal MG MAMMO DIGITAL SCREENING W SARA BILAT Reviewed date:07/27/2025 05:20:50 PM Interpretation:Normal Performing Lab: Notes/Report: See Note [facility], a member of [employer] CLINICAL: 60 years old, Female, routine annual [...] Location: [facility], [address] [place] [address], [address], . -------- FINAL REPORT -------- Dictated By: Sivakumar Alatorre Dictated Date: 07/27/2025 10:04 ET Assigned Physician: Sivakumar Alatorre Reviewed and Electronically Signed By: Sivakumar Alatorre Signed Date: 07/27/2025 11:03 ET Workstation ID: [id number] Transcribed By: Self Edit Transcribed Date: 07/27/2025 10:05 ET Reason For Referral Reason Alex [address] , [place], [place] P: [phone] F: [phone] Knee high compression stockings, 2 pairs Diagnosis 1 Lymphedema, not else where classified (I89.0) Referral Organization [facility] Referring Provider First Name Hubert Referring Provider Last Name Carl Referring Provider Speciality Internal M edicine Referred Provider [facility] [employer] General Notes Lay Carter 07/2025 12:50:42 PM > faxed to [facility] Referral Priority Routine Reason [place] [facility] - XL 8/day #240 5 rf Diagnosis 1 Functional urinary i ncontinence (R39.81) Referral Organization [facility] Referring Provider First Name Hubert Referring Provider Last Name Carl Referring Provider Speciality Internal edicine Referred Organization [facility] Referred Provider Maury [facility] Referred Address [address] [place], [place],[address], General Notes Marlene Lang 04/14/2025 09:47:04 AM > rx and referral faxed to Rickey dye Katelyn 04/26/2025 11:00:16 AM > pt reports they are getting picked up today Referral Priority Routine Reason [facility] [address] [place] P: [phone] F: [phone] Patient over 1/2 year past long ICU stay and has persistent genralized pain, ESR 74, rest of lab eval is really OK. Could this be PMR (I have not tried steroids yet). She is going for fibromayalgia. I also owonder if it is a [id number] syndrome. Referral Organization [facility] Referring Provider First Name Hubert Referring Provider Last Name Carl Referring Provider Speciality Internal edicine Referred Provider Specialty Rheumatology General Notes Lay Carter 09:38:57 AM > Faxed to [facility] Referral Priority Routine Referral Appointment Date 05/03/2026 Reason [employer], [address] [place] P: [phone] F: Provide #1 motorized scooter Referral Organization [facility] Referring Provider First Name Hubert Referring Provider Last Name Boydvenkat Referring Provider Speciality Internal M edicine Referred Organization [facility] Referred Provider [employer] Referred Address [address], [place],[address], Referred Provider Specialty Other suppli er General [...] working on it. Referral Priority Routine Reason [facility], [address], [place] P: [phone] F: [phone] for [facility] - deconditioned and recent fall Referral Organization [facility] Referring Provider First Name Hubert Referring [...] times a day for 30 06/28/2025 Active Losartan Potassium 100 mg TAKE 1 TABLET BY MOUTH ONCE DAILY for 30 Active Furosemide 20 mg TAKE 1 TABLET BY MOUTH ONCE DAILY for 30 Active Nicotine 14 MG/24HR APPLY 1 PATCH ONCE DAILY FOR 28 DAYS for 28 Active Ulises-Gest Antacid 500 MG CHEW AND [...] day for 90 days Active Naproxen 500 mg TAKE 1 TABLET [...] 28 DAYS *Please review and pick correct strength-formulatio n from [employer] options. If intended option is not shown, discontinue and re-order from Quick Search* 05/17/2025 Active Vitamin D3 25 MCG 1 tab(s) orally once a day Active Fexofenadine HCl 180 mg TAKE 1 TABLET BY MOUTH ONCE DAILY AT BEDTIME NEEDED FOR ALLERGY for 90 Active busPIRone HCl 10 MG 1 tab(s) [...] (20 or more) IM Intramuscular 02/08/2018 Administered [facility] [id number] PPSV 23 IM Intramuscular 07/06/2018 Administered Influenza IM Intramuscular 07/21/2018 Administered Tdap IM Intramuscular 12/08/2018 Administered [facility] 49 [id number] Influenza IM Intramuscular 11/14/2019 Administered [facility] 49 [id number] [employer] Covid-19 Vaccine Administration - First Dose (Single Dose 30MCG/0.3ML 1ST) Unknown 02/01/2021 Administered Hepatitis B (20 or more) IM Intramuscular 02/20/2021 Administered [employer] Covid-19 Vaccine Administration-Secon d Dose (Single Dose 30MCG/0.3ML 2ND) IM Intramuscular 02/22/2021 Administered [facility] Influenza IM Intramuscular 08/28/2021 Administered hepatitis B [...] Status W/U Status Risk Notes Problem Hypothyroidism (85333244) Hypothyroidism, unspecified (E03.9) Active confirmed Problem Morbid obesity (disorder) (625030766) Morbid (severe) obesity due to excess calories (E66.01) Active confirmed Problem Alcohol induced disorder co-occurrent and due to alcohol dependence (disorder) (479639532952996) Alcohol dependence with other alcohol-induced disorder (F10.288) Active confirmed Problem Tobacco user (854093427) Nicotine dependence, cigarettes, uncomplicated (F17.210) Active confirmed Problem Nicotine dependence (40916442) Nicotine dependence, cigarettes, with other nicotine-induced disorders (F17.218) Active confirmed Problem Mild recurrent major depression (63319982) Major depressive disorder, recurrent, mild (F33.0) Active confirmed Problem Dysthymia (12605173) Dysthymic disorder (F34.1) Active confirmed Problem New daily persistent headache (007775431931197) New daily persistent headache (NDPH) (G44.52) Active confirmed Problem 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) Active confirmed Problem Chronic pain syndrome (179568846) Chronic pain syndrome (G89.4) Active confirmed Problem Essential hypertension (98672906) Essential (primary) hypertension (I10) Active confirmed Problem Long QT syndrome (1241675) Long QT syndrome (I45.81) Active confirmed Problem Raynaud's disease (529632335) Raynaud's syndrome without gangrene (I73.00) Active confirmed Problem Peripheral vascular disease (533326458) Peripheral vascular disease, unspecified (I73.9) Active confirmed Problem Lymphedema (868787261) Lymphedema, not elsewhere classified (I89.0) Active confirmed Problem Seasonal allergic rhinitis (537617137) Other seasonal allergic rhinitis (J30.2) Active confirmed Problem Chronic sinusitis (17853004) Chronic sinusitis, unspecified (J32.9) Active confirmed Problem Chronic obstructive pulmonary disease (03816374) Chronic obstructive pulmonary disease, unspecified (J44.9) Active confirmed Problem Gastritis (2714594) Other gastritis without bleeding (K29.60) Active confirmed Problem Hernia of abdominal cavity (disorder) (71454222) Other specified abdominal hernia without obstruction or gangrene (K45.8) Active confirmed Problem Alcohol-induced chronic pancreatitis (854730581) 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) Active confirmed Problem Chronic ulcer of skin (47708256) Non-pressure chronic ulcer of skin of other sites limited to breakdown of skin (L98.491) Active confirmed Problem Polymyalgia rheumatica (94039427) Polymyalgia rheumatica (M35.3) Active confirmed Problem Sciatica (02352296) Lumbago with sciatica, right side (M54.41) Active confirmed Problem Sciatica (09777948) Lumbago with sciatica, left side (M54.42) Active confirmed Problem Diastasis of muscle (457944949) Separation of muscle (nontraumatic), unspecified site (M62.00) Active confirmed Problem Menopause (253701652) Menopausal and female climacteric states (N95.1) Active confirmed Problem Functional urinary incontinence (688573992) Functional urinary incontinence (R39.81) Active confirmed Problem History of bariatric surgical procedure (217291002) Bariatric surgery status (Z98.84) Active confirmed Cristina en Y surgery Problem Acute pancreatitis (032594669) Acute pancreatitis without necrosis or infection, unspecified (K85.90) 024 Active confirmed Problem Body mass index 35.00 to 39.99 (775596798175935) Body mass index [BMI] 36.0-36.9, adult (Z68.36) Active confirmed Problem Obese class II (914078950492872) Body mass index [BMI] 35.0-35.9, adult (Z68.35) Inactive confirmed Problem Body mass index 40+ - severely obese (263303684) Body mass index [BMI] 40.0-44.9, adult (Z68.41) Inactive confirmed Vital Signs Temperature 98.4 degrees Fahrenheit 06/27/2025 Blood pressure diastolic 74 06/27/2025 Oximetry 96 06/27/2025 Height 65 in 06/27/2025 Blood pressure systolic 118 06/27/2025 Weight 221.6 lbs 06/27/2025 BMI 36.87 kg/m2 06/27/2025 Encounters Encounter Location Date Provider Diagnosis [address] [address] 06/03/2025 Provider Migration Chronic obstructive pulmonary disease, unspecified J44.9 ; Other seasonal allergic rhinitis J30.2 and Other chest pain R07.[address] [address] 02/03/2025 Hubert Henry Encounter for screening for COVID-19 Z11.52 ; Acute pancreatitis without necrosis or infection, unspecified K85.90 ; Hypothyroidism, unspecified E03.9 ; Major depressive disorder, recurrent, mild F33.0 ; Alcohol dependence with other alcohol-induced disorder F10.288 ; Essential (primary) hypertension I10 and Non-pressure chronic ulcer of skin of other sites limited to breakdown of skin L98.[address] [address] 03/17/2025 Hubert Henry Encounter for screening for COVID-19 Z11.52 ; Polymyalgia rheumatica M35.3 ; Raynaud's syndrome without gangrene I73.00 ; Unspecified abdominal pain R10.9 ; Nicotine dependence, cigarettes, uncomplicated F17.210 ; Essential (primary) hypertension I10 ; Chronic pain syndrome G89.4 ; Major depressive disorder, recurrent, mild F33.0 and Non-pressure chronic ulcer of skin of other sites limited to breakdown of skin L98.[address] [address] 03/21/2025 Nursing [facility] Encounter for screening, unspecified Z13.[address] [address] 04/11/2025 Nursing [facility] Encounter for screening, unspecified Z13.[address] [address] 05/05/2025 Hubert Henry Encounter for screening for COVID-19 Z11.52 ; Polymyalgia rheumatica M35.3 ; Functional urinary incontinence R39.81 ; Telogen effluvium L65.0 ; 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 ; Essential (primary) hypertension I10 and Lymphedema, not elsewhere classified I89.[address] [address] 05/17/2025 Lev Mcelroy Encounter for screening for [...] COVID-19 Z11.52 and Other chest pain R07.89 [facility] [address] [place] [address] [place] [id number] 06/16/2025 Hubert Henry Encounter for screening for COVID-19 Z11.52 ; Polymyalgia rheumatica M35.3 ; Lymphedema, not elsewhere classified I89.0 ; Functional urinary incontinence R39.81 ; Bariatric surgery status Z98.84 and Other specified abdominal hernia without obstruction or gangrene K45.[address] [address] 06/27/2025 Hubert Henry Encounter for screening for [...] site M62.00 and Drug induced constipation K59.[address] [address] 11/09/2024 Hubert Henry [address] [address] 11/23/2024 Hubert Henry [address] [address] 01/19/2025 Hubert Henry [address] [address] 01/25/2025 Hubert Henry [address] [address] 02/17/2025 Hubert Henry Chronic obstructive pulmonary disease, unspecified J44.[address] [address] 02/24/2025 Hubert Henry [address] [address] 03/09/2025 Hubert Henry [address] [address] 03/19/2025 Hubert Henry [address] [address] 03/21/2025 Hubert Henry [address] [address] 03/22/2025 Hubert Henry [address] [address] 03/22/2025 Hubert Henry [address] [address] 03/29/2025 Hubert Henry Hypothyroidism, unspecified E03.[address] [address] 04/03/2025 Hubert Henry [address] [address] 04/06/2025 Hubert Henry [address] [address] 04/10/2025 Hubert Henry [address] [address] 04/12/2025 Hubert Henry [address] [address] 04/14/2025 Hubert Henry [address] [address] 04/26/2025 Hubert Henry [address] [address] 05/05/2025 Hubert Henry Functional urinary incontinence R39.[address] [address] 05/09/2025 Hubert Henry [address] [address] 05/19/2025 Hubert Henry [address] [address] 06/07/2025 Hubert Henry [address] [address] 06/12/2025 Hubert Henry Other chest pain R07.89 Assessments Encounter Date [...] 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 02/03/2025 Acute pancreatitis without necrosis or infection, unspecified (ICD-10 - K85.90) miriam went through a lot and is stable and much improved. 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 She syas she has enough meds (list reviewed) for now. 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 Try to rbooks[p diet going. F/u with her surgeon ?scar [...] (now abd wll thao serrano was told weiargeliat los woitul dhel.. Wiht her multiple surgeries [...] above. If labs negative, then go the firbro route. 05/05/2025 Lymphedema, not elsewhere classified (ICD-10 [...] 05/17/2025 Other chest pain (ICD-10 - R07.89) likley musculo-skeletal from the fall. no flail chest. 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 05/05/2025 Other 05/17/2025 Other 06/16/2025 Other She [...] URINE 02/24/2025 Next Appt Details Provider Name:Hubert Nixvenkat, 09/01/2025 10:20:00 AM, [address] [place] [address], [place], [address], Insurance Providers Payer Name Payer Address Payer Phone Subscriber Number Group Number Insured Name Patient Relationship to Insured Coverage Start Date Coverage End Date [facility] [address] [place] [phone] [id number] Miriam Martins Self - patient is the insured 6 [place] Medicaid Standard [address] [place] [address] [id number] Miriam Martins Self - patient is the insured 5 Medications Administered Medication Instructions Date of Administration Dosage Notes Ketorolac 07/06/2018 30 mg Ketorolac 08/04/2018 30 mg No NDC on vial Ketorolac 08/04/2018 30 mg No NDC on vial Medical (General) History Medical History History ICD Code hypertension hypothyroid migraine depression lumbar spine issues tobacco use 04/2017: [facility] Admission for Ch est pain. : W/U [...] fusion and nonsegmental fixation gastric by-pass in [place] 2009 tubal libation 20 years ago hernia irluxe-[id number] ago Hospitalization History Reason Date(Month/Year) [facility] inpt + UTI, hypoalbuminemia, alcohol ic hepatitis 11/06 Rectal reading 10/08 [facility] Chest pain x 3 days 05/02/17 [facility], back surgery 11/2015 [facility] ER anxiety 2013 gastric bypass 2009
[2025-08-21 10:40] LABS: HBS Num1 1.58 mIU/mL (0-7.99); HBc Num1 0.09 S/CO (0.00-0.79); HBsAGNum1 0.32 S/CO (0.00-0.99); Hepatitis B Surface Antigen Negative (Negative); ~HepC Num1 0.71 S/CO (0.00-0.79); ~Hepatitis B Surface Antibody NONREACTIVE (Nonreactive); ~Hepatitis C Antibody Nonreactive (Nonreactive)
[2025-08-24 05:33] LABS: Quantiferon TB Gold Plus 1 NEGATIVE (NEGATIVE); TB Test (QFT) Mitogen -Nil >10.00 IU/mL; TB Test (QFT) Nil 0.10 IU/mL; TB Test (QFT) Plus TB1 -Nil <0.00 IU/mL; TB Test (QFT) Plus TB2 -Nil <0.00 IU/mL
== END 2025-08-21 09:01 | disposition home or self-care (01) ==
LOC: HO.XRAY 09:00
PROVIDERS: PCP Internal Medicine; Visit Provider Student in an Organized Health Care Education/Training Program
DX: M25.561 Pain in right knee (principal); M25.562 Pain in left knee; Z79.899 Other long term (current) drug therapy; Z11.1 Encounter for screening for respiratory tuberculosis
CPT/HCPCS: 36415; 73560; 73630; 86480; 86704; 86706; 86803; 87340

== ENCOUNTER → 2025-08-21 09:25 | Outpatient (BNV) | payer OTHER, SELFPAY | PROVIDERS: PCP Internal Medicine; Visit Provider Radiology Diagnostic Radiology | DX: M17.0 Bilateral primary osteoarthritis of knee (principal); M19.071 Primary osteoarthritis, right ankle and foot; M19.072 Primary osteoarthritis, left ankle and foot | CPT/HCPCS: 73560; 73630 ==

== ENCOUNTER 2025-08-28 13:51 | Outpatient (AMB) | payer OTHER, SELFPAY ==
--- OUTSIDE RECORDS SUMMARY | 2025-06-03 16:00 | XMS_ITS ---
Author Organization [facility] Address [address] [place] [address] Care Team Providers Care Manufacturing Laborer Name Role Phone Hubert Henry Primary Care [...] review and pick correct strength-formula tion from [facility]. If intended option is not [...] review and pick correct strength-formula tion from [employer] options. If intended option is not shown, [...] review and pick correct strength-formula tion from [employer] options. If intended option is not shown, [...] review and pick correct strength-formula tion from [employer] options. If intended option is not shown, discontinue and re-order from Quick Search* Not-Taking Acetaminophen-Codeine 300-30 MG 1 tab(s) orally every 6 hours for 7 days 4 Not-Taking Cholecalciferol 25 MCG 1 TAB(S) ORALLY ONCE A DAY for 90 DAYS *Please review and pick correct strength-formula tion from [employer] options. If intended option is not shown, discontinue and re-order from Quick Search* 4 Not-Taking Protonix 40 MG 1 tab(s) orally twice a day for 30 days 4 Not-Taking Social History Sex Assigned At : Social History Observation Description Sex Assigned At Female Encounters Encounter Location Date Provider Diagnosis [address] [address] 06/03/2025 Provider Migration Chronic obstructive pulmonary disease, [...] review and p ick correct strength-formulation from [employer] options. If intended option is not shown, [...] Details Provider Name:Hubert Henry, 09/01/2025 10:20:00 AM, [address] [place] [address], [phone], Progress Notes * Sandra SANCHEZDOB:1965 ( 60 yo F)Acc No.[id number]:06/03/2025 Patient: Sandra KURTZ Provider: :1965 A ge:59 Y S ex:Female Date:06/03/2025 Address:[address] [place], [place] [phone] Pcp:Hubert Henry Subjective: * Chief Complaints: * [...] *Please review and pick correct strength-formulation from [employer] options. If intended option is not shown, [...] *Please review and pick correct strength-formulation from [employer] options. If intended option is not shown, [...] *Please review and pick correct strength-formulation from [employer] options. If intended option is not shown, [...] Electronic signature of Prov ider Migration on 08/28/2025 at 10:38 PM EST Sign off status: Pending * Provider: Date: 0 06/03/2025 Generated for Nury wing/Hamilton/Mona on: 10/29/2024 10:38 PM EST
--- NOTE | 2025-08-28 13:53 | MHC.OFFVIS ---
Vital Signs 08/28/25 13:54 Height 5 ft 5 in Weight 233 lb 2 oz BMI 38.8 BP 138/62 Blood Pressure Location Lt brachial Position Sitting Pulse 85 Pulse Source Pulse Oximeter Pulse Oximetry (%) 97 Oxygen Delivery Method Room Air Intake Visit Reasons: follow up Intake Note: Patient presents for follow up on polyarthralgia, labs, and x-ray review. Patient complains of left leg pain today, she states it's getting progressively worse. Log Deck Tender Required: No Accompanied by: Spouse Allergies clonidine Adverse Reaction (Mild, Verified 08/28/25 13:58) insomnia/nightmares HPI Comments Details: 60-year-old female with history of hypertension, hypothyroidism coming in for new patient evaluation for generalized body pain referred by her PCP. Of note she was in the ICU for six-months. She was admitted on Aug 03 2024 at [facility] and then was in rehab for 2 months Today she reports ongoing diffuse pain, pain is in the hands in the wrists shoulders chest wall neck back knees and ankles. She reports that she has very poor sleep, and due to her diffuse body pain she wakes up in the night . She had a little relief from the Celebrex 100 mg daily that I had prescribed last month. on blood work, patient has a CBC CMP within normal limits, uric acid 7.6, ESR negative CRP negative, RF at 22.5 and CCP negative CK of 142. X-rays of the foot show mild changes of osteoarthritis no evidence of gout. X-rays of the SI joint showed mild arthritis of the SI joint without erosive arthropathy and hand x-rays show mild arthritis, possible erosion in the proximal base of the fourth proximal phalanx PRIOR history: She states the joint pain started 3 years ago, mostly in feet and hands. She also states she has pain in lower back, she had a surgery in the lower back 6 years ago at [facility]. She also had pain in shoulders and hips. undergoing OT for shoulders Endorses morning stiffness in the shoulders mostly for 1 hour. She has alot of weakness in the muscles , difficulty walking. She states she has numbness and tingling in the hands and feet with burning very bothersome. she cannot sleep at night with multiple nighttime awakenings. She has not tried prednisone. She tried naproxen for 7 days which helped.She takes pregabalin 200mg bid Joint pain has been getting worse in the past year. ros: no oral ulcers, no photosensitivity endorses hairfall, no IBD no dry eyes , she endorses dry mouth. No Raynaud's phenomena no blood clots, she endorses headaches 2x 3times a week, and also states her vision gets blurry she states it takes half an hour for headache to go away , she reports when blood pressure is high she gets the headaches. lately headaches have subsided blood pressure is under control no jaw claudication FH: no family history of autoimmune disease Vital signs reviewed Physical Examination CONSTITUITIONAL Patient alert and cooperative. Well appearing and in no apparent painful distress HEENT Conjunctiva and sclera clear. No lymphadenopathy. CHEST/RESPIRATORY SYSTEM Normal respiratory effort and able to speak in complete sentences. Clear to auscultation bilaterally. No crackles, rales, rhonchi, wheezes heard. CARDIAC SYSTEM Regular rate and rhythm. S1 and S2 heard no murmurs. temporal pulses intact bilaterally. MSK Hands Right Hand: Able to make a fist. No swelling or tenderness to palpation of the MCPs, PIPs or DIPs. No deformities noted. Left Hand: Able to make a fist. No swelling or tenderness to palpation of the MCPs, PIPs or DIPs. No deformities noted. 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 No swelling or TTP Left Wrist: Full ROM to flexion and extension. No swelling or TTP Elbows Right Elbow: Full ROM. No swelling or TTP. No TTP of the medial epicondyle. No TTP of the lateral epicondyle Left Elbow: Full ROM. No swelling or TTP. No TTP of the medial epicondyle. No TTP of the lateral epicondyle Shoulders Right shoulder: Limited range of motion of the right shoulder diminished strength of the right shoulder 4/5 Left shoulder: Limited range of motion of the right shoulder diminished strength of the right shoulder 4/5 Hips Right hip: Limited range of motion, limited range of motion on internal external rotation with pain Left hip: Limited range of motion Hip bursa: Mild tenderness elicited bilaterally Knees Right knee: Limited range of motion no swelling noted Left knee: Limited range of motion no swelling noted Ankles Right ankle: Good ankle dorsiflexion and plantar flexion. No swelling. No TTP of the ankle joint Left ankle: Patient has swelling behind her left heel, tender to palpation, very limited range of motion of the left angle Tender points? fibromyalgia tender points positive bilateral trapezius, supraspinatus, chest wall tenderness elicited, inner elbow tenderness and inner knee tenderness elicited No skin rashes . ON LICENSE OF [facility] Medical History (Updated 08/28/25 @ 14:38 by Noa Louis MD) Muscle spasm Muscle weakness Nausea Cough Shortness of breath Excessive thirst Internal bleeding Night sweats Weakness Fatigue Swollen leg Surgical History Hx of abdominal surgery Family History Mother Diabetes Social History Alcohol intake: current Alcohol intake frequency: holidays/special occasions only Patient Tobacco Use Status: Current everyday Tobacco user Tobacco use type: Cigarette e-Cigarette/Vaping Use: Never Used Physical Exam Vital Signs: BMI result Body Mass Index 38.8 Assessment & Plan Assessment & Plan (1) Rheumatoid arthritis: Code(s): M06.9 - Rheumatoid arthritis, unspecified Category: Medical Qualifiers: Rheumatoid arthritis location: hand Rheumatoid factor presence: with rheumatoid factor Laterality: bilateral Qualified Code(s): M05.741 - Rheumatoid arthritis with rheumatoid factor of right hand without organ or systems involvement; M05.742 - Rheumatoid arthritis with rheumatoid factor of left hand without organ or systems involvement (2) Left foot pain: Code(s): M79.672 - Pain in left foot Category: Medical (3) Polyarthralgia: Code(s): M25.50 - Pain in unspecified joint Category: Medical (4) Fibromyalgia: Code(s): M79.7 - Fibromyalgia Category: Medical Plan 1. Based on patient's history, physical exam and blood work patient most likely has seropositive rheumatoid arthritis, RF positive with mild disease activity given pain in her hands, and possible erosion seen on hand x-ray. I will start hydroxychloroquine 200 mg b.i.d. to take for rheumatoid arthritis. Side effects and benefits of the medication discussed. #Long-term Use of Hydroxychloroquine Discussed with patient the risks and benefits of hydroxychloroquine in managing the rheumatic condition Benefits include: - Reduced pain, reduce mortality, maintenance of remission and reduction of flares Risks include: - GI upset, skin hyperpigmentation, retinal toxicity (especially after more than 5 years of use), myopathy Advised yearly ophthalmology visits 2. Her clinical picture also suggest superimposed fibromyalgia Discussed management of fibromyalgia with patient. Is a noninflammatory, non-autoimmune central afferent processing disorder leading to a diffuse pain syndrome. I suggested that patient try to address her underlying psychiatric issues, anxiety/depression. Consider a referral for a sleep study by her PCP to rule out MAN. Try to follow sleep hygiene practices. Patient would benefit from increased physical activity, either through formal physical therapy or by joining a gym. Advised patient that she should start activity slowly and increase as tolerated. Consider low-impact exercises such as walking, swimming, aqua therapy stretching, yoga. Patient is on pregabalin 200 mg b.i.d., I will prescribe her Flexeril 5 mg nightly to take as muscle relaxant to help manage with her fibromyalgia. She was given patient education regarding fibromyalgia I will refer her to sleep Medicine to rule out sleep apnea as well as to Ophthalmology for a baseline eye exam prior to initiating hydroxychloroquine 3.Patient also has acute left foot swelling behind the heel, she states that this started 1 week ago. I will get a Doppler ultrasound of the lower extremity left side to rule out concerning findings like a DVT, however likely that the this patient has venous stasis. We will await the results of the Doppler ultrasound of the left foot Patient will follow-up in 6 months Orders: Orders US venous duplex LE LT Today M79.672 - Pain in left foot Referrals Ophthalmology Referral M06.9 - Rheumatoid arthritis, unspecified, Z51.81 - Encounter for therapeutic drug level monitoring, Z79.899 - Other director long term care (current) drug therapy Sleep Medicine Referral G47.30 - Sleep apnea, unspecified, M79.7 - Fibromyalgia Medications: New cyclobenzaprine 5 mg PO BEDTIME 30 tabs 6RF hydroxychloroquine (Plaquenil) 200 mg PO BID 180 tabs 2RF Discontinued celecoxib Discontinued Reason: Doctor's Order 100 mg PO DAILY 30 caps 1RF Coding Level of Care Code Est Pt Level 4 (77533) Diagnoses Rheumatoid arthritis involving both hands with positive rheumatoid factor M05.741; M05.742 Rheumatoid arthritis location: hand Rheumatoid factor presence: with rheumatoid factor Laterality: bilateral Left foot pain M79.672 Polyarthralgia M25.50 Fibromyalgia M79.7
[2025-08-28 13:54] VITALS: BP 138/62; PULSE 85; O2SAT 97; BMI 38.8
--- OUTSIDE RECORDS SUMMARY | 2025-08-28 22:37 | XMS_ITS | Clinical Summary ---
Author Organization [facility] Address [address] [place] [address] Phone Care Team Providers Care Reinsurance Accountant Name Role Phone Hubert Henry MD Primary Care Provider [phone] Allergies Active Allergy Reactions Criticality Noted Date Comments Dexmedetomidine Fever 09/16/2024 Medications albuterol HFA (PROAIR HFA ; PROVENTIL HFA ; VENTOLIN HFA) 90 mcg/actuation inhaler Inhale 2 puffs by mouth every 4 (four) hours if needed for wheezing or shortness of breath. 03/15/20 15 Active atorvastatin (LIPITOR) 40 mg tablet Take 1 tablet (40 mg total) by mouth 1 (one) time each day. Active Symbicort 160-4.5 mcg/actuation inhaler Inhale 2 puffs by mouth 2 (two) times a day. 05/13/20 23 Active Vitamin D3 25 mcg (1,000 unit) tablet Take 1 tablet (1,000 Units total) by mouth 1 (one) time each day. 07/28/20 24 Active cyanocobalamin (VITAMIN B-12) 1,000 mcg tablet Take 1 tablet (1,000 mcg total) by mouth 1 (one) time each day. 07/28/20 24 Active levothyroxine (SYNTHROID, LEVOTHROID) 137 mcg tablet Take 1 tablet (137 mcg total) by mouth 1 (one) time each day before breakfast. Active pantoprazole (PROTONIX) 40 mg EC tabletIndications:g astric ulcer Take 1 tablet (40 mg total) by mouth 2 (two) times a day. 11/08/19 Active ammonium lactate (LAC-HYDRIN) 12 % lotion Apply topically if needed for dry skin. 11/08/19 Active busPIRone (BUSPAR) 10 mg tablet Take 1 tablet (10 mg total) by mouth 3 (three) times a day. 11/08/19 Active calcium carbonate (TUMS) 500 mg (200 mg elemental calcium) chewable tablet Chew 2 tablets (1,000 mg total) 4 (four) times a day if needed for indigestion. 11/08/19 Active furosemide (LASIX) 20 mg tablet Take 1 tablet (20 mg total) by mouth 2 (two) times daily morning and afternoon. 11/08/19 Active gabapentin (NEURONTIN) 300 mg capsule Take 1 capsule (300 mg total) by mouth every 8 (eight) hours. 11/08/19 Active heparin sodium,porcine (heparin, UFH,) 5,000 unit/mL injectionIndication s:Prophylaxis of Venous Thromboembolism Inject 1 mL (5,000 Units total) under the skin every 8 (eight) hours. 11/08/19 Active lidocaine 4 % patch Apply 1 patch topically 1 (one) time each day. 11/09/19 Active LORazepam (ATIVAN) 1 mg tablet Take 1 tablet (1 mg total) by mouth every 6 (six) hours if needed for anxiety for up to 10 days. Max Daily Amount: 4 mg 11/08/19 Active ipratropium-albuter oL (DUONEB) 0.5-2.5 mg/3 mL nebulizer solution Take 3 mL by nebulization 4 (four) times a day. 11/08/19 Active mirtazapine (REMERON) 7.5 mg tablet Take 1 tablet (7.5 mg total) by mouth at bedtime. 11/08/19 Active QUEtiapine (SEROquel) 50 mg tablet Take 1 tablet (50 mg total) by mouth 3 (three) times a day. 11/08/19 Active thiamine (VITAMIN B-1) 500 mg tablet Take 1 tablet (500 mg total) by mouth 1 (one) time each day. 11/08/19 Active folic acid (FOLVITE) 1 mg tablet Take 1 tablet (1 mg total) by mouth 1 (one) time each day. 11/08/19 Active multivitamin tablet Take 1 tablet by mouth 1 (one) time each day. 11/08/19 Active ergocalciferol (VITAMIN D-2) 1,250 mcg (50,000 unit) capsule Take 1 capsule (50,000 Units total) by mouth 1 (one) time per week. 12 each 03/16/20 Active Active Problems Problem Noted Date Diagnosed Date Wound infection after surgery 11/21/2024 Morbid obesity due to excess calories 11/08/2024 Acute on chronic anemia 09/14/2024 Colitis 09/14/2024 Aspiration pneumonia 09/14/2024 Hypoalbuminemia due to protein-calorie malnutrit ion 09/09/2024 Edema due to hypoalbuminemia 09/09/2024 Hyperchloremic metabolic acidosis 09/08/2024 Polyneuropathy associated with critical illness 08/20/2024 Fatty liver 08/10/2024 Troponin level elevated 08/10/2024 On mechanically assisted ventilation 08/10/2024 Endotracheally intubated 08/10/2024 Acute pulmonary edema 08/10/2024 Urinary tract infection, site not specified 07/22 Klebsiella infection 08/09/2024 Alcohol dependence 08/04/2024 Septic shock 08/04/2024 Pneumoperitoneum 08/04/2024 Resolved Problems Problem Noted Date Diagnosed Date Resolved Date Malfunction of jejunostomy tube 10/29/2024 11/08/2024 ABLA (acute blood loss anemia) 09/14/2024 09/14/2024 Acute respiratory failure with hypoxemia 08/10/2024 11/08/2024 Pyelonephritis 08/04/2024 11/08/2024 Transaminitis 08/04/2024 11/08/2024 NARCISO (acute kidney injury) 08/04/2024 Encounters Date Type Department Care Team Description 07/27/2025 9:28 AM EST - 07/27/2025 11:59 PM EST [facility] [address] [place] [phone] Encounter for screening mammogram for malignant neoplasm of breast Discharge Disposition: Home or Self Care 07/26/2025 4:00 PM EST Office Visit Bariatric Surgery [facility] [address] [phone] Yecenia Haynes MD S/P gastric bypass (Primary Dx); Hx of iron deficiency; Left lower quadrant abdominal pain; Diastasis recti; Constipation, unspecified constipation type 06/20/2025 Telephone Bariatric Surgery [facility] [address] [phone] Yecenia Haynes MD 06/19/2025 Telephone Gastroenterology [facility] [address] [phone] Kevin Guardado MD 06/16/2025 9:29 AM EDT - 06/16/2025 11:59 PM EDT Hospital Encounter [facility] CT Scan [address] [place] [phone] Incisional hernia, without obstruction or gangrene Discharge Disposition: Home or Self Care 05/30/2025 2:30 PM EDT Office Visit Bariatric Surgery [address] [phone] Yecenia Haynes MD Incisional hernia, without obstruction or gangrene (Primary Dx); Abnormal laboratory test from Last 3 Months Immunizations Immunization Administration Dates Next Due Hepatitis B (Ifwdmzg-G-Mlfoq , Recombivax HB-Adult) 19yo and older 11/11/2022,02/20/2021 Influenza Quadrivalent, 0.5m l, preservative free (Fluarix; FluLaval; Fluzone) ages 6mo and older (Afluria) 3yo and older 08/28/2023,11/11/2022 Influenza trivalent, with pr eservative (Fluzone; Afluria) 6mo and older 08/28/2021 Surgical History Surgery Date Site/Laterality Comments HERNIA REPAIR PROCEDURE: HISTORICAL HERNIA REPAIR/ING OTHER SURGICAL HISTORY PROCEDURE: ND TX ECTOPIC ABDL GASTRIC BYPASS 09/21/2007 PROCEDURE: [...] AM EST Office Visit Bariatric Surgery - [address] [place] [address] Marianna Szymanski MD [address] [place] [phone] Health Maintenance Due Date Last Done Comments [...] 12/08/2018 Hepatitis A Vaccines Completed 05/21/2016, 09/25/19 16 Hepatitis B Vaccines Completed 11/11/2022, 02/20/2021, 02/08/2018 [...] year. Mammo Location: [facility], [address] [place] [address], [phone], . -------- FINAL REPORT -------- Dictated By: Sivakumar Alatorre Dictated Date: 07/27/2025 10:04 ET Assigned Physician: Sivakumar Alatorre Reviewed and Electronically Signed By: Sivakumar Alatorre Signed Date: 07/27/2025 11:03 ET Workstation ID: [id number] Transcribed By: Self Edit Transcribed Date: 07/27/2025 [...] year. Mammo Location: [facility], [address] [place] [address], [phone], . -------- FINAL REPORT -------- Dictated By: Sivakumar Alatorre Dictated Date: 07/27/2025 10:04 ET Assigned Physician: Sivakumar Alatorre Reviewed and Electronically Signed By: Sivakumar Alatorre Signed Date: 07/27/2025 11:03 ET Workstation ID: [id number] Transcribed By: Self Edit Transcribed Date: 07/27/2025 10:05 ET Hubert Henry MD IMG BI PROCEDURES Final [...] Signed Date: 06/21/2025 12:07 ET Workstation ID: [id number] Transcribed By: Self Edit Transcribed Date: 06/21/2025 [...] small bowel resections of small bowel obstruction. Rhxu-dj-Upofmqwz bypass. BONES AND SOFT TISSUES: Scattered degenerative [...] Signed Date: 06/21/2025 12:07 ET Workstation ID: [id number] Transcribed By: Self Edit Transcribed Date: 06/21/2025 12:02 ET us Yecenia Haynes MD IMG CT PROCEDURES Final Result * Iron and TIBC (05/30/2025 3:02 PM EDT) Iron 106 40 - 150 mcg/dL LAB CHEMISTRY METHOD 05/30/2025 7:42 PM EDT [facility] TIBC 322 250 - 450 mcg/dL LAB CHEMISTRY METHOD 05/30/2025 7:42 PM EDT [facility] Iron Saturation 33 15 - 50 % LAB CHEMISTRY METHOD 05/30/2025 7:42 PM EDT [facility] Blood Venous blood specimen / Unknown Venipuncture / Unknown 05/30/2025 3:02 PM EDT 05/30/2025 3:02 PM EDT us Yecenia Haynes MD LAB BLOOD ORDERABLES Fi nal Result [facility] [address] [place] [address], * Zinc (05/30/2025 3:02 PM EDT) Zinc 90 60 - 130 ug/dL 06/02/2025 10:25 AM EDT [facility] Comment: Elevated results may be due to sample collected in a non-certified trace element-free tube. This test was developed and the performance characteristics determined by [facility]. It has not been cleared or approved by the FDA. The laboratory is regulated under CLIA as qualified to perform high-complexity testing. This test is used for patient testing purposes. It should not be regarded as investigational or for research. Test performed at [facility], [address], [place] [address] Yudith Geiger MD, PhD - Drier Transfer Car Operator Blood Venous blood specimen / Unknown Venipuncture / Unknown 05/30/2025 3:02 PM EDT 05/30/2025 3:02 PM EDT us Yecenia Haynes MD LAB BLOOD ORDERABLES Fi nal Result [facility] [address] [place] [address] * Vitamin D 25 hydroxy (05/30/2025 3:02 PM EDT) [facility] Vit D, 25-Hydroxy 48.4 30.0 - 80.0 ng/mL LAB CHEMISTRY METHOD 05/30/2025 10:04 PM EDT [facility] Blood Venous blood specimen / Unknown Venipuncture / Unknown 05/30/2025 3:02 PM EDT 05/30/2025 3:02 PM EDT us Yecenia Haynes MD LAB BLOOD ORDERABLES Fi nal Result [facility] [address] [place] [address], * (ABNORMAL) Comprehensive metabolic panel (03/10/2025 11:30 AM EDT) [facility] Sodium 143 133 - 145 mmol/L LAB CHEMISTRY METHOD 03/10/2025 4:46 PM EDT [facility] Potassium 4.0 3.5 - 5.5 mmol/L LAB CHEMISTRY METHOD 03/10/2025 4:46 PM EDT [facility] Chloride 111(H) 96 - 110 mmol/L LAB CHEMISTRY METHOD 03/10/2025 4:46 PM EDT [facility] CO2 24 21 - 32 mmol/L LAB CHEMISTRY METHOD 03/10/2025 4:46 PM [facility] Anion Gap 8 3 - 11 LAB CHEMISTRY METHOD 03/10/2025 4:46 PM [facility] Glucose 88 70 - 100 mg/dL LAB CHEMISTRY METHOD 03/10/2025 4:46 PM [facility] BUN 13 5 - 25 mg/dL LAB CHEMISTRY METHOD 03/10/2025 4:46 PM [facility] Creatinine 0.61 0.50 - 1.10 mg/dL LAB CHEMISTRY METHOD 03/10/2025 4:46 PM [facility] eGFR 102 >=60 mL/min/1. 73m2 LAB CHEMISTRY METHOD 03/10/2025 4:46 PM [facility] Comment:Calculation based on the Chronic Kidney Disease Epidemiology Collaboration (CKD-EPI) equation refit without adjustment for race. BUN/Creatinine Ratio 21.3 LAB CHEMISTRY METHOD 03/10/2025 4:46 PM [facility] Calcium 9.1 8.5 - 10.5 mg/dL LAB CHEMISTRY METHOD 03/10/2025 4:46 PM [facility] AST (SGOT) 22 10 - 42 unit/L LAB CHEMISTRY METHOD 03/10/2025 4:46 PM [facility] ALT (SGPT) 23 10 - 60 unit/L LAB CHEMISTRY METHOD 03/10/2025 4:46 PM [facility] Alkaline Phosphatase 104 42 - 121 unit/L LAB CHEMISTRY METHOD 03/10/2025 4:46 PM [facility] Total Protein 7.3 6.0 - 8.0 g/dL LAB CHEMISTRY METHOD 03/10/2025 4:46 PM [facility] Albumin 3.3 3.2 - 5.0 g/dL LAB CHEMISTRY METHOD 03/10/2025 4:46 PM [facility] Total Bilirubin 0.3 0.0 - 1.4 mg/dL LAB CHEMISTRY METHOD 03/10/2025 4:46 PM EDT [facility] Blood Venous blood specimen / Unknown Venipuncture / Unknown 03/10/2025 11:30 AM EDT 03/10/2025 11:30 AM EDT us Yecenia Haynes MD LAB BLOOD ORDERABLES Fi nal Result [facility] [address] [place] [address], [place] [phone] from Last 3 Months or Most Recently Relevant to Health Maintenance Insurance [facility] Member Subscriber Plan / Payer (Ef fective 2016-Present) Name:SANDRA MARTINS Relation to Subscriber:Self Name:Sandra Martins Payer ID:[id number] Group ID:[id number] Type:Not on file Address: [address] [facility] [place] [address] Advance Directives Documents on File Type Date Recorded Patient Molder Inflated Ball Expl anation Advance Directives and Living Will 12/02/2024 11:05 AM PROXY Advance Directives and Living Will 11/21/2024 2:16 PM PROXY Advance Directives and Living Will 11/21/2024 1:22 PM [facility] Proxy Advance Directives and Living Will 11/12/2024 [...] Agents on File Name Relationship Healthcare Agent [facility] Communication Ramona Greenfield Daughter Health Care Agent Salima Padillarera Relative First Alternate Health Care Agent Care Teams Reinsurance Accountant Relationship Specialty Start Date End Date Hubert Henry MD [address] [place] [address] [place] PCP - General Internal Medicine 06/23/22
--- OUTSIDE RECORDS SUMMARY | 2025-08-28 22:37 | XMS_ITS | Encounter Summary ---
Author Organization [facility] Prior to 07/22/2024 Address [address] [place] [address] Care Team Providers Care Copper Etcher Name Role Phone Hubert Henry MD Primary Care Provider Unavaila Tiffany Mayfield MD Unavailable [phone] Christine Morel PA-C Unavailable Willard Willard PA-C Unavailable Encounter Details Date Type Department Care Team Description 07/13/2023 SCAN [facility] Medical [facility] Neurosurgery [place] 175 [facility] [address] [place] [phone] Tiffany Hanson MD [address] [id number] Social History Tobacco Use Types Packs/Day Years Used Date Smoking Tobacco: Every Day Cigarettes 0.5 Smokeless Tobacco: Never Comments:5 cig daily Alcohol Use Standard Drinks/Week Comments Yes 0 (1 standard drink = 0.6 oz pur e alcohol) occ Sex Assigned at Date Recorded Not on file Job Start Date Occupation Industry Not on file Not on file Not on file documented as of this encounter Plan of Treatment Not on file documented as of this encounter Visit Diagnoses Not on filedocumented in this encounter Care Teams Copper Etcher Relationship Specialty Start Date End Date Hubert Henry MD PCP - General Internal Medicine 06/23/22 Tiffany Hanson MD [address] [phone] Specialist Neurosurgery 07/18/22 Christine Morel PA-C [address] [facility] [address] [place] [address] Specialist Neurosurgery 01/30/23 Willard Willard PA-C [address] [address] Specialist Neurosurgery 01/30/23 documented as of this encounter
--- OUTSIDE RECORDS SUMMARY | 2025-08-28 22:37 | XMS_ITS | Encounter Summary ---
Author Organization [facility] [employer] [facility] Prior to 07/22/2024 Address [address] [place] [address] Care Team Providers Care Software Support Analyst Name Role Phone Dilip Flood MD Primary Care Provider [phone] Aura Barlow MD Primary Care Provider Unavail able Hubert Henry MD Primary Care Provider Unavaila Tiffany Mayfield MD Unavailable [phone] Christine Morel PA-C Unavailable [phone] Willard Willard PA-C Unavailable [phone] Encounter Details Date Type Department Care Team Description 01/07/2016 Low Altitude Air Defense Officer Report Medical Records [address] [place] [address] Tiffany Hanson MD 175 [facility] [address] [place] [address] Social History Tobacco Use Types Packs/Day Years [...] on filedocumented in this encounter Care Teams Software Support Analyst Relationship Specialty Start Date End Date Dilip Flood MD [address] [place], [place] [phone] PCP - General Internal Medicine 03/12/15 10/07/21 Aura Barlow MD [address] [place] [address] PCP - General Family Practice 10/08/21 06/22/22 Hubert Henry MD [address] [place] [address] PCP - General Internal Medicine 06/23/22 Tiffany Hanson MD [address] [address] Specialist Neurosurgery 07/18/22 Christine Morel PA-C [address] [phone] Specialist Neurosurgery 01/30/23 Willard Willard PA-C [address] [address] Specialist Neurosurgery 01/30/23 documented as of this encounter
--- OUTSIDE RECORDS SUMMARY | 2025-08-28 22:37 | XMS_ITS | Encounter Summary ---
Author Organization [facility] [employer] [facility] Prior to 07/22/2024 Address [address] [place] [address] Care Team Providers Care Customer Support Advisor Name Role Phone Dilip Flood MD Primary Care Provider [phone] Aura Barlow MD Primary Care Provider Unavail able Hubert Henry MD Primary Care Provider Unavaila Tiffany Mayfield MD Unavailable [phone] Christine Morel PA-C Unavailable [phone] Willard Willard PA-C Unavailable [phone] Encounter Details Date Type Department Care Team Description 02/22/2016 Rn Internal Medicine Report Medical Records [address] [place] [address] Christine Morel PA-C 175 [facility] [address] [place] [address] Social History Tobacco Use Types Packs/Day Years [...] on filedocumented in this encounter Care Teams Customer Support Advisor Relationship Specialty Start Date End Date Dilip Flood MD [address] [place] [address] PCP - General Internal Medicine 03/12/15 10/07/21 Aura Barlow MD [address] [place] [address] PCP - General Family Practice 10/08/21 06/22/22 Hubert Henry MD [address] [place] [address] PCP - General Internal Medicine 06/23/22 Tiffany Hanson MD [address] [address] Specialist Neurosurgery 07/18/22 Christine Morel PA-C [address] [address] Specialist Neurosurgery 01/30/23 Willard Willard PA-C 175 [facility] [address] [place] [address] Specialist Neurosurgery 01/30/23 documented as of this encounter
--- OUTSIDE RECORDS SUMMARY | 2025-08-28 22:37 | XMS_ITS | Encounter Summary ---
Author Organization [facility] Prior to 07/22/2024 Address [address] [place] [address] Care Team Providers Care Macerator Operator Name Role Phone Hubert Henry MD Primary Care Provider UnavailTiffany Sanders MD Unavailable [phone] Christine Morel PA-C Unavailable Willard Willard PA-C Unavailable Encounter Details Date Type Department Care Team Description 02/09/2023 SCAN [facility] Medical [facility] Neurosurgery [place] 175 [facility] [address] [place] [phone] Christine Morel PA-C 175 [facility] [address] [place] [address] [id number] Social History Tobacco Use Types Packs/Day Years Used Date Smoking Tobacco: Every Day Cigarettes 0.5 Smokeless Tobacco: Never Comments:5 cig daily Alcohol Use Standard Drinks/Week Comments Yes 0 (1 standard drink = 0.6 oz pur e alcohol) occ Sex Assigned at Date Recorded Not on file Job Start Date Occupation Industry Not on file Not on file Not on file COVID-19 Exposure Response Date Recorded In the last 10 days, have yo u been in contact with someone who was confirmed or suspected to have Coronavirus/COVID-19? No / Unsure 01/19/2023 11:13 AM EDT documented as of this encounter Plan of Treatment Not on file documented as of this encounter Visit Diagnoses Not on filedocumented in this encounter Care Teams Macerator Operator Relationship Specialty Start Date End Date Hubert Henry MD PCP - General Internal Medicine 06/23/22 Tiffany Hanson MD [address] [phone] Specialist Neurosurgery 07/18/22 Christine Morel PA-C [address] [address] Specialist Neurosurgery 01/30/23 Willard Willard PA-C [address] [address] Specialist Neurosurgery 01/30/23 documented as of this encounter
--- OUTSIDE RECORDS SUMMARY | 2025-08-28 22:37 | XMS_ITS | Encounter Summary ---
Author Organization [facility] [email or web address] [facility] Prior to 07/22/2024 Address [address] [place] [address] Care Team Providers Care Tape Cutter Name Role Phone Dilip Flood MD Primary Care Provider [phone] Aura Barlow MD Primary Care Provider Unavail able Hubert Henry MD Primary Care Provider Unavaila Tiffany Mayfield MD Unavailable [phone] Christine Morel PA-C Unavailable [phone] Willard Willard PA-C Unavailable [phone] Encounter Details Date Type Department Care Team Description 11/12/2015 Hospital Medical Records [address] [place] [address] Willard Willard PA-C 175 [facility] [address] [place] [address] Social History Tobacco Use Types Packs/Day Years [...] on filedocumented in this encounter Care Teams Tape Cutter Relationship Specialty Start Date End Date Dilip Flood MD [address] [place], [place] [phone] PCP - General Internal Medicine 03/12/15 10/07/21 Aura Barlow MD 305 [place] [address] PCP - General Family Practice 10/08/21 06/22/22 Hubert Henry MD 305 [place] [address] PCP - General Internal Medicine 06/23/22 Tiffany Hanson MD [address] [address] Specialist Neurosurgery 07/18/22 Christine Morel PA-C [address] [address] Specialist Neurosurgery 01/30/23 Willard Willard PA-C [address] [address] Specialist Neurosurgery 01/30/23 documented as of this encounter
--- OUTSIDE RECORDS SUMMARY | 2025-08-28 22:37 | XMS_ITS | Encounter Summary ---
Author Organization [facility] Prior to 07/22/[facility]24 Address [address] [place] [address] Care Team Providers Care Turbogenerator Operator Name Role Phone Dilip Flood MD Primary Care Provider [phone] Aura Barlow MD Primary Care Provider Unavail able Hubert Henry MD Primary Care Provider Unavaila Tiffany Mayfield MD Unavailable [phone] Christine Morel PA-C Unavailable [phone] Willard Willard PA-C Unavailable [phone] Encounter Details Date Type Department Care Team Description 08/28/2021 Discovery Guide Report Medical Records [address] [place] [address] Aura Barlow MD Social History Tobacco Use Types Packs/Day Years [...] on filedocumented in this encounter Care Teams Turbogenerator Operator Relationship Specialty Start Date End Date Dilip Flood MD [address] [place] [address] PCP - General Internal Medicine 03/12/15 10/07/21 Aura Barlow MD [address] [place] [address] PCP - General Family Practice 10/08/21 06/22/22 Hubert Henry MD 305 [place] [address] PCP - General Internal Medicine 06/23/22 Tiffany Hanson MD [address] [address] Specialist Neurosurgery 07/18/22 Christine Morel PA-C [address] [address] Specialist Neurosurgery 01/30/23 Willard Willard PA-C [address] [address] Specialist Neurosurgery 01/30/23 documented as of this encounter
--- OUTSIDE RECORDS SUMMARY | 2025-08-28 22:37 | XMS_ITS | Encounter Summary ---
Author Organization [facility] Prior to 07/22/2024 Address [address] [place] [address] Care Team Providers Care Rail Track Layer Name Role Phone Hubert Henry MD Primary Care Provider Unavaila Tiffany Mayfield MD Unavailable [phone] Christine Morel PA-C Unavailable Willard Willard PA-C Unavailable [phone] Encounter Details Date Type Department Care Team Description 02/27/2023 SCAN [facility] Medical [facility] Neurosurgery [place] 175 [facility] [address] [place] [phone] Christine Morel PA-C [address] [address] Social History Tobacco Use Types Packs/Day Years [...] on filedocumented in this encounter Care Teams Rail Track Layer Relationship Specialty Start Date End Date Hubert Henry MD PCP - General Internal Medicine 06/23/22 Tiffany Hanson MD 175 [facility] [address] [place], [place] [phone] Specialist Neurosurgery 07/18/22 Christine Morel PA-C [address] [address] Specialist Neurosurgery 01/30/23 Willard Willard PA-C [address] [address] Specialist Neurosurgery 01/30/23 documented as of this encounter
--- OUTSIDE RECORDS SUMMARY | 2025-08-28 22:37 | XMS_ITS | Encounter Summary ---
Author Organization [facility] Prior to 07/22/2024 Address [address] [place] [address] Care Team Providers Care Harvest Supervisor Name Role Phone Hubert Henry MD Primary Care Provider Unavaila Tiffany Mayfield MD Unavailable [phone] Christine Morel PA-C Unavailable Willard Willard PA-C Unavailable Encounter Details Date Type Department Care Team Description 07/30/2022 Abstract [facility] Neurosurgery [place] [address] [phone] Tiffany Hanson MD [address] [phone] Social History Tobacco Use Types Packs/Day Years [...] on filedocumented in this encounter Care Teams Harvest Supervisor Relationship Specialty Start Date End Date Hubert Henry MD PCP - General Internal Medicine 06/23/22 Tiffany Hanson MD [address] [phone] Specialist Neurosurgery 07/18/22 Christine Morel PA-C 175 [facility] [address] [place] [address] Specialist Neurosurgery 01/30/23 Willard Willard PA-C [address] [address] Specialist Neurosurgery 01/30/23 documented as of this encounter
--- OUTSIDE RECORDS SUMMARY | 2025-08-28 22:37 | XMS_ITS | Encounter Summary ---
Author Organization [facility] to 07/[facility]24 Address [address] [place] [address] Care Team Providers Care Boat Joiner Name Role Phone Hubert Henry MD Primary Care Provider Unavaila Tiffany Mayfield MD Unavailable [phone] Christine Morel PA-C Unavailable [phone] Willard Willard PA-C Unavailable [phone] Encounter Details Date Type Department Care Team Description 01/20/2023 Telephone Gastroenterology [facility] 175 [facility] [address] [place] [address] Da Rivers PA-C Social History Tobacco Use Types Packs/Day Years [...] AM EDT documented as of this encounter Miscellaneous Notes * Telephone Encounter - Anisa Shi - 01/20/2023 8:43 AM EDT See other encounter. * Telephone Encounter - Da Rivers PA-C - 01/20/2023 7:53 AM EDT One of the labs that are drawn for cirrhosis is a tumor marker and please let the patient know thather tumor marker is normal which is good. We will continue to monitor her liver documented in this encounter Plan of Treatment Not on file documented as of this encounter Visit Diagnoses Not on filedocumented in this encounter Care Teams Boat Joiner Relationship Specialty Start Date End Date Hubert Henry MD PCP - General Internal Medicine 06/23/22 Tiffany Hanson MD 175 [facility] [address] [place] [address] Specialist Neurosurgery 07/18/22 Christine Morel PA-C [address] [address] Specialist Neurosurgery 01/30/23 Willard Willard PA-C 175 [facility] [address] [place] [address] Specialist Neurosurgery 01/30/23 documented as of this encounter
--- OUTSIDE RECORDS SUMMARY | 2025-08-28 22:37 | XMS_ITS | Encounter Summary ---
Author Organization [facility] Prior to 07/22/2024 Address [address] [place] [address] Care Team Providers Care Vp Patient Name Role Phone Hubert Henry MD Primary Care Provider Unavaila Tiffany Mayfield MD Unavailable [phone] Christine Morel PA-C Unavailable Willard Willard PA-C Unavailable [phone] Encounter Details Date Type Department Care Team Description 07/22/2022 Abstract [facility] Neurosurgery [place] [address] [phone] Tiffany Hanson MD [address] [phone] Social History Tobacco Use Types Packs/Day Years [...] on filedocumented in this encounter Care Teams Vp Patient Relationship Specialty Start Date End Date Hubert Henry MD PCP - General Internal Medicine 06/23/22 Tiffany Hanson MD [address] [phone] Specialist Neurosurgery 07/18/22 Christine Morel PA-C 175 [facility] [address] [place] [address] Specialist Neurosurgery 01/30/23 Willard Willard PA-C [address] [address] Specialist Neurosurgery 01/30/23 documented as of this encounter
--- OUTSIDE RECORDS SUMMARY | 2025-08-28 22:38 | XMS_ITS | Encounter Summary ---
Author Organization [facility] Prior to 07/22/2024 Address [address] [place] [address] Care Team Providers Care Station Installer Name Role Phone Dilip Flood MD Primary Care Provider [phone] Aura Barlow MD Primary Care Provider Unavail able Hubert Henry MD Primary Care Provider Unavaila Tiffany Mayfield MD Unavailable [phone] Christine Morel PA-C Unavailable [phone] Willard Willard PA-C Unavailable [phone] Encounter Details Date Type Department Care Team Description 06/12/2015 Controlled Substance Contract with Plan Medical Records [address] [place] [id number] Abstract, Provider Social History Tobacco Use Types Packs/Day Years [...] on filedocumented in this encounter Care Teams Station Installer Relationship Specialty Start Date End Date Dilip Flood MD [address] [place] [address] PCP - General Internal Medicine 03/12/15 10/07/21 Aura Barlow MD [address] [place] [address] PCP - General Family Practice 10/08/21 06/22/22 Hubert Henry MD [address] [place] [address] PCP - General Internal Medicine 06/23/22 Tiffany Hanson MD [address] [address] Specialist Neurosurgery 07/18/22 Christine Morel PA-C [address] [address] Specialist Neurosurgery 01/30/23 Willard Willard PA-C [address] [address] Specialist Neurosurgery 01/30/23 documented as of this encounter
--- OUTSIDE RECORDS SUMMARY | 2025-08-28 22:38 | XMS_ITS | Encounter Summary ---
Author Organization [facility] Address [address] [place] [address] Care Team Providers Care Early Childhood Education Coordinator Name Role Phone Hubert Henry MD Primary Care Provider [phone] Encounter Details Date Type Department Care Team (Late Contact Info) Description 03/17/2025 Lab Requisition [facility] - Main Lab 299 [facility] [place] [address] Hubert Henry MD [address] [place] [address] Frequency of micturition Social History Tobacco Use [...] AM EST Office Visit Bariatric Surgery - [place] [address] [place] [address] Marianna Szymanski MD [address] [place] [phone] documented as of this encounter Procedures [...] reflex microscopic (03/17/2025 12:00 AM EDT) Specific [place] Urine 1.014 1.003 - 1.030 LAB URINALYSIS [...] - AUTOMATED METHOD 03/17/2025 8:35 PM EDT [facility] Urobilinogen , Urine 0.2 0.2 - [...] MD LAB URINE ORDERABLES Final Re sult [facility] [address] [place] [address], [place] [phone] * (ABNORMAL) Culture urine (03/17/2025 12:00 AM EDT) Culture, Urine 50,000-100,000 CFU/mL Escherichia coli(A) EBONI 03/19/2025 12:13 PM EDT [facility] Urine Urine specimen [...] OR DERABLES Final Result Performing Organization Address City/State/[facility] Co de Phone Number [facility] [address] [place] [address], documented in this encounter Visit Diagnoses Diagnosis Frequency of micturition Urinary frequency documented in this encounter Care Teams Early Childhood Education Coordinator Relationship Specialty Start Date End Date Hubert Henry MD [address] [place] [address] PCP - General Internal Medicine 06/23/22 documented as of this encounter
--- OUTSIDE RECORDS SUMMARY | 2025-08-28 22:38 | XMS_ITS | Encounter Summary ---
Author Organization [facility] [facility] Prior to 07/22/2024 Address [address] [place] [address] Care Team Providers Care Degreasing Solution Reclaimer Name Role Phone Dilip Flood MD Primary Care Provider [phone] Aura Barlow MD Primary Care Provider Unavail able Hubert Henry MD Primary Care Provider Unavaila Tiffany Mayfield MD Unavailable [phone] Christine Morel PA-C Unavailable [phone] Willard Willard PA-C Unavailable [phone] Encounter Details Date Type Department Care Team Description 06/07/2015 Banking Analyst Report Medical Records [address] [place] [address] Victor Manuel Crocker Social History Tobacco Use Types Packs/Day Years [...] on filedocumented in this encounter Care Teams Degreasing Solution Reclaimer Relationship Specialty Start Date End Date Dilip Flood MD [address] [place] [address] PCP - General Internal Medicine 03/12/15 10/07/21 Aura Barlow MD [address] [place] [address] PCP - General Family Practice 10/08/21 06/22/22 Hubert Henry MD [address] [place] [address] PCP - General Internal Medicine 06/23/22 Tiffany Hanson MD [address] [address] Specialist Neurosurgery 07/18/22 Christine Morel PA-C [address] [address] Specialist Neurosurgery 01/30/23 Willard Willard PA-C [address] [address] Specialist Neurosurgery 01/30/23 documented as of this encounter
--- OUTSIDE RECORDS SUMMARY | 2025-08-28 22:38 | XMS_ITS | Encounter Summary ---
Author Organization [facility] Prior to 07/22/2024 Address [address] [place] [address] Care Team Providers Care Senior Games Technician Name Role Phone Dilip Flood MD Primary Care Provider [phone] Aura Barlow MD Primary Care Provider Unavail able Hubert Henry MD Primary Care Provider Unavaila Tiffany Mayfield MD Unavailable [phone] Christine Morel PA-C Unavailable [phone] Willard Willard PA-C Unavailable [phone] Encounter Details Date Type Department Care Team Description 04/25/2015 Coloring Machine Operator Report Medical Records [address] [place] [address] Victor Manuel Crocker Social History Tobacco Use Types Packs/Day Years Used Date Smoking Tobacco: Every Day Cigarettes 0.5 Smokeless Tobacco: Never Alcohol Use Standard Drinks/Week Comments Yes 0 [...] on filedocumented in this encounter Care Teams Senior Games Technician Relationship Specialty Start Date End Date Dilip Flood MD [address] [place] [address] PCP - General Internal Medicine 03/12/15 10/07/21 Aura Barlow MD [address] [place] [address] PCP - General Family Practice 10/08/21 06/22/22 Hubert Henry MD [address] [place] [address] PCP - General Internal Medicine 06/23/22 Tiffany Hanson MD [address] [address] Specialist Neurosurgery 07/18/22 Christine Morel PA-C [address] [address] Specialist Neurosurgery 01/30/23 Willard Willard PA-C [address] [address] Specialist Neurosurgery 01/30/23 documented as of this encounter
--- OUTSIDE RECORDS SUMMARY | 2025-08-28 22:38 | XMS_ITS | Encounter Summary ---
Author Organization [facility] Prior to 07/22/2024 Address [address] [place] [address] Care Team Providers Care Electronic Scale Assembler And Tester Name Role Phone Dilip Flood MD Primary Care Provider [phone] Aura Barlow MD Primary Care Provider Unavail able Hubert Henry MD Primary Care Provider Unavaila Tiffany Mayfield MD Unavailable [phone] Christine Morel PA-C Unavailable [phone] Willard Willard-C Unavailable [phone] Reason for Visit * Reason Onset Date Comments REFERRAL 06/21/2015 Encounter Details Date Type Department Care Team Description 06/21/2015 Telephone Adult Medicine - [address] [phone] Dilip Flood MD [address] [place] [address] [phone] REFERRAL Social History Tobacco Use Types Packs/Day Years [...] on file documented as of this encounter Miscellaneous Notes * Telephone Encounter - Lorrie Lund - 06/21/2015 12:15 PM EDT Unable to reach patient. documented in this encounter Plan of Treatment Not on file documented as of this encounter Visit Diagnoses Not on filedocumented in this encounter Care Teams Electronic Scale Assembler And Tester Relationship Specialty Start Date End Date Dilip Flood MD [address] [place] [address] PCP - General Internal Medicine 03/12/15 10/07/21 Aura Barlow MD [address] [place] [address] PCP - General Family Practice 10/08/21 06/22/22 Hubert Henry MD 305 [place] [address] PCP - General Internal Medicine 06/23/22 Tiffany Hanson MD [address] [address] Specialist Neurosurgery 07/18/22 Christine Morel PA-C [address] [address] Specialist Neurosurgery 01/30/23 Willard Willard PA-C [address] [address] Specialist Neurosurgery 01/30/23 documented as of this encounter
--- OUTSIDE RECORDS SUMMARY | 2025-08-28 22:38 | XMS_ITS | Encounter Summary ---
Author Organization [facility] Address [address] [place] [address] Care Team Providers Care Language Asst Name Role Phone Hubert Henry MD Primary Care Provider [phone] Encounter Details Date Type Department Care Team ([facility] Contact Info) Description 03/21/2025 Lab Requisition [facility] - Main Lab [address] [place] [address] Hubert Henry MD [address] [place], [place] Polymyalgia rheumatica (CMS/HCC V24) Social History [...] Upcoming Encounters Date Type Department Care Team ([facility] Contact Info) Description 11/07/2025 9:00 AM EST Office Visit Bariatric Surgery - [place] [address] [place] [address] Marianna Szymanski MD [address] [place] [phone] documented as of this encounter Procedures Procedure Name Priority Date/Time Associated Diagnosis Comments CENTROMERE ANTIBODIES Routine 03/21/2025 9:41 AM EDT Polymyalgia rheumatica ([facility] V24) RICCO IFA WITH TITER AND PATTERN Routine 03/21/2025 9:41 AM EDT Polymyalgia rheumatica ([facility] V24) CBC WITH AUTO DIFFERENTIAL Routine 03/21/2025 9:41 AM EDT Polymyalgia rheumatica ([facility] V24) SEDIMENTATION RATE Routine 03/21/2025 9: 41 AM EDT Polymyalgia rheumatica ([facility] V24) CBC AND DIFFERENTIAL Routine 03/21/2025 9:41 AM EDT Polymyalgia rheumatica ([facility] V24) C-REACTIVE PROTEIN Routine 03/21/2025 9: 41 AM EDT Polymyalgia rheumatica ([facility] V24) documented in this encounter Results * (ABNORMAL) CBC auto differential (03/21/2025 9:41 AM EDT) WBC 5.9 4.8 - 10.8 K/mcL LAB HEMETOLOGY METHOD 03/21/2025 5:[address] [facility] RBC 4.70 3.80 - 4.80 M/mcL LAB HEMETOLOGY METHOD 03/21/2025 5:[address] [facility] Hemoglobin 13.1 11.5 - 16.0 g/dL LAB HEMETOLOGY METHOD 03/21/2025 5:[address] [facility] Hematocrit 41.9 35.0 - 47.0 % LAB HEMETOLOGY METHOD 03/21/2025 5:[address] [facility] MCV 88.6 79.0 - 98.0 FL LAB HEMETOLOGY METHOD 03/21/2025 5:[address] [facility] MCH 27.7 27.0 - 32.0 pcg LAB HEMETOLOGY METHOD 03/21/2025 5:[address] [facility] MCHC 31.3(L) 32.0 - 37.0 g/dL LAB HEMETOLOGY METHOD 03/21/2025 5:[address] [facility] RDW 13.1 11.0 - 15.0 % LAB [facility] 290 130 - 400 K/mcL LAB HEMETOLOGY METHOD 03/21/2025 5:[address] [facility] MPV 12.5(H) 7.0 - 11.0 FL LAB HEMETOLOGY METHOD [facility]25 [facility] NRBC 0.0 <1.0 % LAB HEMETOLOGY METHOD [facility] NRBC Absolute 0.00 <0.10 K/mcL LAB HEMETOLOGY METHOD 03/21/2025 5:[address] [facility] Neutrophils Relative 30.8 % LAB HEMETOLOGY METHOD 03/21/2025 5:[address] [facility] Lymphocytes Relative 56.1 % LAB HEMETOLOGY METHOD 03/21/2025 5:[address] [facility] Monocytes Relative 9.8 % LAB HEMETOLOGY METHOD 03/21/2025 5:[address] [facility] Eosinophils Relative 2.4 % LAB HEMETOLOGY METHOD 03/21/2025 5:[address] [facility] Basophils Relative 0.7 % LAB HEMETOLOGY METHOD 03/21/2025 5:[address] [facility] Immature Granulocytes Relative 0.2 % LAB HEMETOLOGY METHOD 03/21/2025 5:[address] [facility] Neutrophils Absolute 1.82 1.50 - 7.00 K/mcL LAB HEMETOLOGY METHOD 03/21/2025 5:[address] [facility] Lymphocytes Absolute 3.31 1.00 - 5.00 K/mcL LAB HEMETOLOGY METHOD 03/21/2025 5:[address] [facility] Monocytes Absolute 0.58 0.20 - 1.00 K/mcL LAB HEMETOLOGY METHOD 03/21/2025 5:[address] [facility] Eosinophils Absolute 0.14 0.00 - 0.50 K/mcL LAB HEMETOLOGY METHOD 03/21/2025 5:[address] [facility] Basophils Absolute 0.04 0.00 - 0.20 K/mcL LAB HEMETOLOGY METHOD 03/21/2025 5:[address] [facility] Immature Granulocytes Absolute 0.01 0.00 - 0.03 K/mcL LAB HEMETOLOGY METHOD 03/21/2025 5:[address] [facility] Blood Venous blood specimen / Unknown 03/21/2025 9:41 AM EDT 03/21/2025 5:13 PM EDT us Hubert Henry MD LAB BLOOD ORDERABLES Final Re sult [facility] [address] [place] [address], * RICCO IFA with titer and pattern (03/21/2025 9:41 AM EDT) RICCO Negative Negative 03/23/2025 11:[address] [facility] Blood Venous blood specimen / Unknown 03/21/2025 9:41 AM EDT 03/21/2025 5:13 PM EDT Hubert Henry MD LAB BLOOD ORDERABLES Final Re sult [facility]) [facility] [address] [place] [address], [place] [phone] * Centromere antibodies (03/21/2025 9:41 AM EDT) Pathologist [facility] Centromere Antibody 0.7 <7.0 U/mL 03/27/2025 11:34 AM EDT [facility] Comment: INTERPRETATION: Negative Test performed at [facility], [address], [place] [address] uYdith Geiger MD, PhD - Anodic Operator Blood Venous blood specimen / Unknown 03/21/2025 9:41 AM EDT 03/21/2025 5:13 PM EDT Hubert Henry MD LAB BLOOD ORDERABLES Final Re sult Performing Organization Address [facility]/ZIP Co de Phone Number [facility] [address] [place] [address] * C-reactive protein (03/21/2025 9:41 AM EDT) [facility] C-Reactive Protein <0.29 <=0.50 mg/dL LAB CHEMISTRY METHOD 03/21/2025 6:[address] [facility] Blood Venous blood specimen / Unknown 03/21/2025 9:41 AM EDT 03/21/2025 5:13 PM EDT Hubert Henry MD LAB BLOOD ORDERABLES Final Re sult [facility] [address] [place] [address], [place] [phone] * (ABNORMAL) Sedimentation rate (03/21/2025 9:41 AM EDT) Sed Rate 74(H) 0 - 30 mm/hr LAB HEMETOLOGY METHOD 03/21/2025 5:[address] [facility] Blood Venous blood specimen / Unknown 03/21/2025 9:41 AM EDT 03/21/2025 5:13 PM EDT Hubert Henry MD LAB BLOOD ORDERABLES Final Re sult Performing Organization Address [facility] Co de Phone Number [facility] [address] [place] [address], documented in this encounter Visit Diagnoses Diagnosis Polymyalgia rheumatica (CMS/HCC V24) Polymyalgia rheumatica documented in this encounter Care Teams Language Asst Relationship Specialty Start Date End Date Hubert Henry MD [address] [place], [place] PCP - General Internal Medicine 06/23/22 documented as of this encounter
--- OUTSIDE RECORDS SUMMARY | 2025-08-28 22:38 | XMS_ITS | Encounter Summary ---
Author Organization [facility] Address [address] [place] [address] Care Team Providers Care Motors And Generators Inspector Name Role Phone Hubetr Henry MD Primary Care Provider [phone] Encounter Details Date Type Department Care Team (Late st Contact Info) Description 04/11/2025 Lab Requisition [facility] - Main Lab [address] [facility] [place] [address] Hubert Henry MD [address] [place] [address] Dysuria Social History Tobacco Use Types Packs/Day [...] AM EST Office Visit Bariatric Surgery - [place] [address] [place] [address] Marianna Szymanski MD [address] [place] [phone] documented as of this encounter Procedures Procedure Name Priority Date/Time Associated Diagnosis Comments URINALYSIS WITH REFLEX MICROSCOPIC Routine 04/11/2025 4:30 PM EDT Dysuria URINALYSIS WITH REFLEX MICROSCOPIC Routine 04/11/2025 4:30 PM EDT Dysuria CULTURE URINE Routine 04/11/2025 4:30 PM EDT Dysuria documented in this encounter Results * Urinalysis with reflex microscopic (04/11/2025 4:30 PM EDT) Specific [place] Urine 1.018 1.003 - 1.030 LAB URINALYSIS - AUTOMATED METHOD 04/11/2025 4:48 PM [facility] pH, Urine 5.5 5.0 - 8.0 pH LAB URINALYSIS - AUTOMATED METHOD 04/11/2025 4:48 PM [facility] Leukocytes, Urine Negative Negative LAB URINALYSIS - AUTOMATED METHOD 04/11/2025 4:48 PM [facility] Nitrite, Urine Negative Negative LAB URINALYSIS - AUTOMATED METHOD 04/11/2025 4:48 PM [facility] Protein, Urine Negative <=Trace mg/dL LAB URINALYSIS - AUTOMATED METHOD 04/11/2025 4:48 PM [facility] Glucose, Urine Negative Negative mg/dL LAB URINALYSIS - AUTOMATED METHOD 04/11/2025 4:48 PM [facility] Ketones, Urine Negative Negative mg/dL LAB URINALYSIS - AUTOMATED METHOD 04/11/2025 4:48 PM [facility] Urobilinogen, Urine 0.2 0.2 - 1.0 mg/dL LAB URINALYSIS - AUTOMATED METHOD 04/11/2025 4:48 PM EDT [facility] Bilirubin, Urine Negative Negative LAB URINALYSIS - AUTOMATED METHOD 04/11/2025 4:48 PM EDT [facility] Blood, Urine Negative Negative LAB URINALYSIS - AUTOMATED METHOD 04/11/2025 4:48 PM EDT [facility] Urine Urine specimen obtained by clean catch procedure / Unknown Non-blood Collection / Unknown 04/11/2025 4:30 PM EDT 04/11/2025 4:32 PM EDT us Hubert Henry MD LAB URINE ORDERABLES Final Re sult Performing Organization Address City/[facility]/ZIP Co de Phone Number [facility] [address] [place] [address], [place] [phone] * Culture urine (04/11/2025 4:30 PM EDT) Culture, Urine 10,000-49,000 CFU/mL Mixed bacterial morphotypes present suggestive of possible contamination during collection. Suggest appropriate recollection if clinically indicated. 04/12/2025 3:24 PM EDT [facility] Urine Urine specimen obtained by clean catch procedure / Unknown Non-blood Collection / Unknown 04/11/2025 4:30 PM EDT 04/11/2025 4:32 PM EDT Hubert Henry MD LAB MICROBIOLOGY - GENERAL OR DERABLES Edited Result - Final Performing Organization Address City/[facility]/ZIP Co de Phone Number [facility] [address] [place] [address], [place] [phone] documented in this encounter Visit Diagnoses Diagnosis Dysuria documented in this encounter Care Teams Motors And Generators Inspector Relationship Specialty Start Date End Date Hubert Henry MD [address] [place], [place] PCP - General Internal Medicine 06/23/22 documented as of this encounter
--- OUTSIDE RECORDS SUMMARY | 2025-08-28 22:38 | XMS_ITS | Encounter Summary ---
Author Organization [employer] [facility] Prior to 07/22/2024 Address [address] [place] [address] Care Team Providers Care Power And Recovery Superintendent Name Role Phone Dilip Flood MD Primary Care Provider [phone] Aura Barlow MD Primary Care Provider Unavail able Hubert Henry MD Primary Care Provider Unavaila Tiffany Mayfield MD Unavailable [phone] Christine Morel PA-C Unavailable [phone] Willard Willard PA-C Unavailable [phone] Encounter Details Date Type Department Care Team Description 06/12/2015 Controlled Substance Contract with Plan Medical Records [address] [place] [id number] Abstract, Provider Social History Tobacco Use Types [...] on filedocumented in this encounter Care Teams Power And Recovery Superintendent Relationship Specialty Start Date End Date Dilip Flood MD [address] [place] [address] PCP - General Internal Medicine 03/12/15 10/07/21 Aura Barlow MD [address] [place] [address] PCP - General Family Practice 10/08/21 06/22/22 Hubert Henry MD [address] [place] [address] PCP - General Internal Medicine 06/23/22 Tiffany Hanson MD [address] [address] Specialist Neurosurgery 07/18/22 Christine Morel PA-C [address] [address] Specialist Neurosurgery 01/30/23 Willard Willard PA-C [address] [address] Specialist Neurosurgery 01/30/23 documented as of this encounter
--- OUTSIDE RECORDS SUMMARY | 2025-08-28 22:39 | XMS_ITS | Encounter Summary ---
Author Organization [employer] [facility] Prior to 07/22/2024 Address [address] [place] [address] Care Team Providers Care Assortment Planner Name Role Phone Hubert Henry MD Primary Care Provider UnavailTiffany Sanders MD Unavailable [phone] Christine Morel PA-C Unavailable [phone] Willard Willard PA-C Unavailable [phone] Reason for Visit * Reason Comments E-prescribe Rx Request Encounter Details Date Type Department Care Team Description 12/24/2023 Refill Gastroenterology [address] [place] [address] Da Rivers PA-C E-prescribe Rx Request Social History Tobacco Use Types Packs/Day Years [...] encounter Miscellaneous Notes * Telephone Encounter - Ivory Thomas M.A. - 12/24/2023 1:01 PM EDT [facility]ONIE 01/10/24 No upcoming appt documented in this encounter Plan of Treatment Not on file documented as of this encounter Visit Diagnoses Not on filedocumented in this encounter Care Teams Assortment Planner Relationship Specialty Start Date End Date Hubert Henry MD PCP - General Internal Medicine 06/23/22 Tiffany Hanson MD [address] [address] Specialist Neurosurgery 07/18/22 Christine Morel PA-C [address] [address] Specialist Neurosurgery 01/30/23 Willard Willard PA-C [address] [facility] [address] [place] [address] Specialist Neurosurgery 01/30/23 documented as of this encounter
--- OUTSIDE RECORDS SUMMARY | 2025-08-28 22:39 | XMS_ITS | Encounter Summary ---
Author Organization [employer] [facility] Prior to 07/22/2024 Address [address] [place] [address] Care Team Providers Care Wood Router Hand Name Role Phone Hubert Henry MD Primary Care Provider Tiffany Larkin MD Unavailable [phone] Christine Morel PA-C Unavailable [phone] Willard Willard PA-C Unavailable [phone] Reason for Visit * Reason Onset Date Comments Provider Call Back 04/07/2024 Encounter Details Date Type Department Care Team Description 04/07/2024 Telephone Gastroenterology - [address] [place] [address] Da Rivers PA-C Provider Call Back Social History Tobacco Use Types Packs/Day Years [...] encounter Miscellaneous Notes * Telephone Encounter - Da Rivers PA-C - 04/12/2024 9:12 PM EDT Patient is looking for bentyl for cramping- [facility] * Telephone Encounter - Anisa Shi - 04/12/2024 1:29 PM EDT Spoke to patient and advised. Patient would like to try the Bentyl. Please order for her,. She willalso have the labs drawn some time this week. * Telephone Encounter - Da Rivers PA-C - 04/07/2024 7:02 PM EDT The Zofran can help with the nausea and the lactulose can help with moving her bowels but this can also cause some gassiness. Patient should still continue taking the Protonix. If she is having this feeling of hot to touch, this is not a GI issue however we can order labs to make sure that she doesnot have an elevated white count. If she is having pain in the middle of her back, this could be due to kidney stone as well. Please see if she would at least like to try Bentyl to see if that will help with the abdominal cramping * Telephone Encounter - Anisa Shi - 04/07/2024 2:49 PM EDT Per Da's last office visit, She had undergone ultrasound which does demonstrate that she has changes in her liver consistent with cirrhosis as well as the MRI noting that she does have pancreatitis with slightly elevated pancreatic enzymes Da also prescribed Zofran,Lactulose, and Protonix was increased to 40mg. Patient is taking medication as directed, her upper stomach feels hot to the touch, a lot of cramping and bloating that causes her middle back pain. Please advise, thank you. * Telephone Encounter - Ayesha Lyles - 04/07/2024 12:49 PM EDT The patient is calling stating at her last appointment Da told her she would review her MRI from when the patient was at the ER. The patient is calling asking if Da had a chance to review it and states she is still having pain and nauseaous. The medication that Da prescribed is not helping. documented in this encounter Plan of Treatment Not on file documented as of this encounter Visit Diagnoses Not on filedocumented in this encounter Care Teams Wood Router Hand Relationship Specialty Start Date End Date Hubert Henry MD PCP - General Internal Medicine 06/23/22 Tiffany Hanson MD 175 [facility] [address] [place] [address] Specialist Neurosurgery 07/18/22 Christine Morel PA-C [address] [address] Specialist Neurosurgery 01/30/23 Willard Willard PA-C [address] [facility] [address] [place] [address] Specialist Neurosurgery 01/30/23 documented as of this encounter
--- OUTSIDE RECORDS SUMMARY | 2025-08-28 22:39 | XMS_ITS | Patient Health Record ---
Author Organization [facility] Address [address] [place] [address] Care Team Providers Care Wastewater Supervisor Name Role Phone Hubert Henry Primary Care Provider [facility], Nursing Unavailable [phone] Lev Mcelroy Unavailable [phone] Migration, Provider Unavailable Unavailable Allergies Allergen (clinical [...] Reviewed date:05/25/2025 02:44:18 PM Interpretation:negative Performing Lab:NL2, [facility] [id number] Lisa Malagon, Director - [address] [place] [address] Notes/Report: NON-FASTING CLINICAL INFORMATION: None g iven LMP: NONE GIVEN PREV. PAP: NONE GIVEN PREV. BX: NONE GIVEN SOURCE: None given STATEMENT OF ADEQUACY: Satisfactory for evaluation. Endocervical/transforma tion zone component present. INTERPRETATION/RESULT: Cytology Results: Negative for intraepithelial lesion or malignancy. COMMENT: This Pap test has been evaluated with the ThinPrep(R) Imaging System. FLATBED PRESS OPERATOR: CHANDRAKANT ROBERTS(ASCP) CT Screening Location: [facility] [address], [place] [address]. CLIA: [id number] Slide preparation performed at: [facility], [address] [place] [address] CLIA: [id number] COMMENT EXPLANATORY NOTE: The Pap is a [...] test SurePath(TM) specimens have been determined by [facility]. The modifications have not been cleared or approved by the FDA. This assay has been validated pursuant to the CLIA regulations and is used for clinical purposes. For additional information, please refer to https://education.Piehole/faq/FAQ 154 (This link is being provided for information/ educational purposes only.) URINALYSIS WITH REFLEX MICRO SCOPIC Reviewed date:04/11/2025 05:42:41 PM Interpretation:Negative Performing Lab: Notes/Report: Specific [place] Urine 1.018 1.003-1.030 pH, Urine 5.5 5.0-8.0 [...] 02:00:45 PM Interpretation:leukocytes Performing Lab: Notes/Report: Specific [place] Urine 1.014 1.003-1.030 pH, Urine 5.5 5.0-8.0 [...] <7.0 U/mL INTERPRETATION: Negative Test performed at [facility], [address] [place] [address] Yudith Geiger MD, PhD - First Sampler CT Abdomen Pelvis WO Cont Reviewed date:06/22/2025 05:48:19 PM Interpretation:Abnormal Performing Lab: Notes/Report: Abnormal MG MAMMO DIGITAL SCREENING W SARA BILAT Reviewed date:07/27/2025 05:20:50 PM Interpretation:Normal Performing Lab: Notes/Report: See Note [facility], a member of [employer] CLINICAL: 60 years old, Female, routine annual [...] year. Mammo Location: [facility], [address] [place] [address], [address], . -------- FINAL REPORT -------- Dictated By: Sivakumar Alatorre Dictated Date: 07/27/2025 10:04 ET Assigned Physician: Sivakumar Alatorre Reviewed and Electronically Signed By: Sivakumar Alatorre Signed Date: 07/27/2025 11:03 ET Workstation ID: [id number] Transcribed By: Self Edit Transcribed Date: 07/27/2025 10:05 ET Reason For Referral Reason Alex [address] , [place], [place] P: [phone] F: [phone] Knee high compression stockings, 2 pairs Diagnosis 1 Lymphedema, not else where classified (I89.0) Referral Organization [facility] Referring Provider First Name Hubert Referring Provider Last Name Carl Referring Provider Speciality Internal M edicine Referred Provider [facility] [employer] General Notes Lay Carter 07/2025 12:50:42 PM > faxed to [facility] Referral Priority Routine Reason [place] [facility] - XL 8/day #240 5 rf Diagnosis 1 Functional urinary i ncontinence (R39.81) Referral Organization [facility] Referring Provider First Name Hubert Referring Provider Last Name Carl Referring Provider Speciality Internal edicine Referred Organization [facility] Referred Provider Ma[facility] Referred Address [address] [place], [place],[address], General Notes Marlene Lang 04/14/2025 09:47:04 AM > rx and referral faxed to Rickey dye Katelyn 04/26/2025 11:00:16 AM > pt reports they are getting picked up today Referral Priority Routine Reason [facility] [address] [place] P: [phone] F: [phone] Patient over 1/2 year past long ICU stay and has persistent genralized pain, ESR 74, rest of lab eval is really OK. Could this be PMR (I have not tried steroids yet). She is going for fibromayalgia. I also owonder if it is a [id number] syndrome. Referral Organization [facility] Referring Provider First Name Hubert Referring Provider Last Name Carl Referring Provider Speciality Internal edicine Referred Provider Specialty Rheumatology General Notes Lay Carter 09:38:57 AM > Faxed to [facility] [place] Rheumatology Referral Priority Routine Referral Appointment Date 05/03/2026 Reason [employer], [address] [place] P: [phone] F: Provide #1 motorized scooter Referral Organization [facility] Referring Provider First Name Hubert Referring Provider Last Name Boydvenkat Referring Provider Speciality Internal M edicine Referred Organization [facility] Referred Provider [employer] Referred Address [address] [place], [place],[address], Referred Provider Specialty Other suppli er General [...] working on it. Referral Priority Routine Reason [facility] are, [address], [place] P: [phone] F: [phone] for [facility] - deconditioned and recent fall Referral Organization [facility] Referring Provider First Name Hubert Referring Provider [...] review and pick correct strength-formulatio n from [employer] options. If intended option is not shown, [...] (20 or more) IM Intramuscular 02/08/[address] [facility] [id number] PPSV 23 IM Intramuscular 07/06/2018 Administered Influenza IM Intramuscular 07/21/2018 Administered Tdap IM Intramuscular 12/08/2018 Administered [facility] 49 [id number] Influenza IM Intramuscular 11/14/2019 Administered [facility] 49 [id number] [employer] Covid-19 Vaccine Administration - First Dose (Single Dose 30MCG/0.3ML 1ST) Unknown 02/01/2021 Administered Hepatitis B (20 or more) IM Intramuscular 02/20/2021 Administered [employer] Covid-19 Vaccine Administration-Secon d Dose (Single Dose 30MCG/0.3ML 2ND) IM Intramuscular 02/22/2021 Administered [facility] Influenza IM Intramuscular 08/28/2021 Administered hepatitis [...] Status W/U Status Risk Notes Problem Hypothyroidism (47340464) Hypothyroidism, unspecified (E03.9) Active confirmed Problem Morbid obesity (disorder) (029435459) Morbid (severe) obesity due to excess calories (E66.01) Active confirmed Problem Alcohol induced disorder co-occurrent and due to alcohol dependence (disorder) (754366739260775) Alcohol dependence with other alcohol-induced disorder (F10.288) Active confirmed Problem Tobacco user (991500501) Nicotine dependence, cigarettes, uncomplicated (F17.210) Active confirmed Problem Nicotine dependence (87097922) Nicotine dependence, cigarettes, with other nicotine-induced disorders (F17.218) Active confirmed Problem Mild recurrent major depression (31790404) Major depressive disorder, recurrent, mild (F33.0) Active confirmed Problem Dysthymia (49487558) Dysthymic disorder (F34.1) Active confirmed Problem New daily persistent headache (588874610852817) New daily persistent headache (NDPH) (G44.52) Active confirmed Problem 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 confirmed Problem Chronic pain syndrome (899299177) Chronic pain syndrome (G89.4) Active confirmed Problem Essential hypertension (18831108) Essential (primary) hypertension (I10) Active confirmed Problem Long QT syndrome (6256957) Long QT syndrome (I45.81) Active confirmed Problem Raynaud's disease (383298848) Raynaud's syndrome without gangrene (I73.00) Active confirmed Problem Peripheral vascular disease (335743603) Peripheral vascular disease, unspecified (I73.9) Active confirmed Problem Lymphedema (800391799) Lymphedema, not elsewhere classified (I89.0) Active confirmed Problem Seasonal allergic rhinitis (752767492) Other seasonal allergic rhinitis (J30.2) Active confirmed Problem Chronic sinusitis (58284114) Chronic sinusitis, unspecified (J32.9) Active confirmed Problem Chronic obstructive pulmonary disease (99992519) Chronic obstructive pulmonary disease, unspecified (J44.9) Active confirmed Problem Gastritis (7939136) Other gastritis without bleeding (K29.60) Active confirmed Problem Hernia of abdominal cavity (disorder) (95791758) Other specified abdominal hernia without obstruction or gangrene (K45.8) Active confirmed Problem 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) Active confirmed Problem Chronic ulcer of skin (68918563) Non-pressure chronic ulcer of skin of other sites limited to breakdown of skin (L98.491) Active confirmed Problem Polymyalgia rheumatica (74487686) Polymyalgia rheumatica (M35.3) Active confirmed Problem Sciatica (66215054) Lumbago with sciatica, right side (M54.41) Active confirmed Problem Sciatica (09574094) Lumbago with sciatica, left side (M54.42) Active confirmed Problem Diastasis of muscle (862640050) Separation of muscle (nontraumatic), unspecified site (M62.00) Active confirmed Problem Menopause (767930158) Menopausal and female climacteric states (N95.1) Active confirmed Problem Functional urinary incontinence (687076950) Functional urinary incontinence (R39.81) Active confirmed Problem History of bariatric surgical procedure (463867751) Bariatric surgery status (Z98.84) Active confirmed Cristina en Y surgery Problem Acute pancreatitis (599523899) Acute pancreatitis without necrosis or infection, unspecified (K85.90) 024 Active confirmed Problem Body mass index 35.00 to 39.99 (643671888302618) Body mass index [BMI] 36.0-36.9, adult (Z68.36) Active confirmed Problem Obese class II (088679527268675) Body mass index [BMI] 35.0-35.9, adult (Z68.35) Inactive confirmed Problem Body mass index 40+ - severely obese (602536356) Body mass index [BMI] 40.0-44.9, adult (Z68.41) Inactive confirmed Vital Signs Temperature 98.4 degrees Fahrenheit 06/27/2025 Blood pressure diastolic 74 06/27/2025 Oximetry 96 06/27/2025 Height 65 in 06/27/2025 Blood pressure systolic 118 06/27/2025 Weight 221.6 lbs 06/27/2025 BMI 36.87 kg/m2 06/27/2025 Encounters Encounter Location Date Provider Diagnosis [address] [address] 06/03/2025 Provider Migration Chronic obstructive pulmonary disease, unspecified J44.9 ; Other seasonal allergic rhinitis J30.2 and Other chest pain R07.[address] [address] 02/03/2025 Hubert Henry Encounter for screening for COVID-19 Z11.52 ; Acute pancreatitis without necrosis or infection, unspecified K85.90 ; Hypothyroidism, unspecified E03.9 ; Major depressive disorder, recurrent, mild F33.0 ; Alcohol dependence with other alcohol-induced disorder F10.288 ; Essential (primary) hypertension I10 and Non-pressure chronic ulcer of skin of other sites limited to breakdown of skin L98.[address] [address] 03/17/2025 Hubert Henry Encounter for screening for COVID-19 Z11.52 ; Polymyalgia rheumatica M35.3 ; Raynaud's syndrome without gangrene I73.00 ; Unspecified abdominal pain R10.9 ; Nicotine dependence, cigarettes, uncomplicated F17.210 ; Essential (primary) hypertension I10 ; Chronic pain syndrome G89.4 ; Major depressive disorder, recurrent, mild F33.0 and Non-pressure chronic ulcer of skin of other sites limited to breakdown of skin L98.[address] [address] 03/21/2025 Nursing [facility] Encounter for screening, unspecified Z13.[address] [address] 04/11/2025 Nursing [facility] Encounter for screening, unspecified Z13.[address] [address] 05/05/2025 Hubert Henry Encounter for screening for COVID-19 Z11.52 ; Polymyalgia rheumatica M35.3 ; Functional urinary incontinence R39.81 ; Telogen effluvium L65.0 ; 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 ; Essential (primary) hypertension I10 and Lymphedema, not elsewhere classified I89.[address] [address] 05/17/2025 Lev Mcelroy Encounter for screening for [...] COVID-19 Z11.52 and Other chest pain R07.89 [facility] [address] [place] [address] [place] [id number] 06/16/2025 Hubert Henry Encounter for screening for COVID-19 Z11.52 ; Polymyalgia rheumatica M35.3 ; Lymphedema, not elsewhere classified I89.0 ; Functional urinary incontinence R39.81 ; Bariatric surgery status Z98.84 and Other specified abdominal hernia without obstruction or gangrene K45.[address] [address] 06/27/2025 Hubert Henry Encounter for screening for [...] site M62.00 and Drug induced constipation K59.[address] [address] 08/28/2025 Hubert Henry [address] [address] 11/09/2024 Hubert Henry [address] [address] 11/23/2024 Hubert Henry [address] [address] 01/19/2025 Hubert Henry [address] [address] 01/25/2025 Hubert Henry [address] [address] 02/17/2025 Hubert Henry Chronic obstructive pulmonary disease, unspecified J44.[address] [address] 02/24/2025 Hubert Henry [address] [address] 03/09/2025 Hubert Henry [address] [address] 03/19/2025 Hubert Henry [address] [address] 03/21/2025 Hubert Henry [address] [address] 03/22/2025 Hubert Henry [address] [address] 03/22/2025 Hubert Henry [address] [address] 03/29/2025 Hubert Henry Hypothyroidism, unspecified E03.[address] [address] 04/03/2025 Hubert Henry [address] [address] 04/06/2025 Hubert Henry [address] [address] 04/10/2025 Hubert Henry [address] [address] 04/12/2025 Hubert Henry [address] [address] 04/14/2025 Hubert Henry [address] [address] 04/26/2025 Hubert Henry [address] [address] 05/05/2025 Hubert Henry Functional urinary incontinence R39.[address] [address] 05/09/2025 Hubert Henry [address] [address] 05/19/2025 Hubert Henry [address] [address] 06/07/2025 Hubert Henry [address] [address] 06/12/2025 Hubert Henry Other chest pain R07.89 [...] transferred to labeled spec tube, awaiting lab machine operator picker. 02/03/2025 Acute pancreatitis without necrosis or infection, unspecified (ICD-10 - K85.90) miriam went through a lot and is stable and much improved. waiting to get home care going with PT MAy need new [employer] application. She syas she has enough meds (list reviewed) for now. Knows oxycodone is not senior care 02/03/2025 Encounter for screening for COVID-19 (ICD-10 [...] past gastric bypass (now abd wll thao ad was told weihgt los woitul dhel.. Wiht [...] transferred to labeled spec tube, awaiting lab machine operator picker. 05/05/2025 Other 05/17/2025 Other 06/16/2025 Other She [...] COMPLETE W/REFLEX TO CULTURE 10/08/2017 PROTHROMBIN TIME-INR 11/13/2017 PROTHROMBIN TIME-INR 12/05/2019 PROTHROMBIN TIME-INR 10/15/2017 MITOCHONDRIAL ANTIBODY W/REFL TITER 03/21 LIVER FIBROSIS, FIBROTEST ACTITEST PANEL 12/05/2019 BASIC METABOLIC PANEL (BMP) 09/07/2023 H. PYLORI ANTIGEN STOOL 01/29/2024 MAGNESIUM 11/11/2022 UA WITH CULTURE IF INDICATED 04/17/2022 CR Hip Uni 2-3 Views RT 10/08/2020 CR Spine Lumbar 2 or 3 Views 10/08/2020 Nicolas Screening Digital 10/28/2022 Nicolas Screening Digital 02/20/2021 Nicolas Screening Digital 05/14/2020 US Bladder 05/29/2021 US Gall Bladder 10/08/2020 Next Appt Details Provider Name:Hubert Henry, 09/01/2025 10:20:00 AM, [address] [place] [address], [place], [address], Insurance Providers Payer Name Payer Address Payer Phone Subscriber Number Group Number Insured Name Patient Relationship to Insured Coverage Start Date Coverage End Date [facility] [address] [place] [phone] [id number] Miriam Martins Self - patient is the insured 6 [place] Medicaid Standard [address] [place] [address] [id number] Miriam Martins Self - patient is the insured 5 Medications Administered Medication Instructions Date of Administration Dosage Notes Ketorolac 07/06/2018 30 mg Ketorolac 08/04/2018 30 mg No NDC on vial Ketorolac 08/04/2018 30 mg No NDC on vial Medical (General) History Medical History History ICD Code hypertension hypothyroid migraine depression lumbar spine issues tobacco use 04/2017: [facility] Admission for Ch est pain. : [...] fusion and nonsegmental fixation gastric by-pass in [place] 2009 tubal libation 20 years ago hernia [id number] ago Hospitalization History Reason Date(Month/Year) [facility] inpt + UTI, hypoalbuminemia, alcohol ic hepatitis 11/06 Rectal reading 10/08 [facility] Chest pain x 3 days 05/02/17 [facility], back surgery 11/2015 [facility] ER anxiety 2013 gastric bypass 2009
== END 2025-08-28 14:36 | disposition home or self-care (01) ==
LOC: HO.RHES 13:52
PROVIDERS: PCP Internal Medicine; Visit Provider Student in an Organized Health Care Education/Training Program
DX: M05.741 Rheumatoid arthritis with rheumatoid factor of right hand without organ or systems involvement (principal); M05.742 Rheumatoid arthritis with rheumatoid factor of left hand without organ or systems involvement; M79.672 Pain in left foot; M79.7 Fibromyalgia; M25.50 Pain in unspecified joint
CPT/HCPCS: 99214

== ENCOUNTER → 2025-08-28 13:51 | Outpatient (BNVA) | payer OTHER, SELFPAY | PROVIDERS: PCP Internal Medicine; Visit Provider Student in an Organized Health Care Education/Training Program | DX: M05.742 Rheumatoid arthritis with rheumatoid factor of left hand without organ or systems involvement (principal); M79.7 Fibromyalgia; M79.89 Other specified soft tissue disorders; G47.30 Sleep apnea, unspecified; M79.672 Pain in left foot; Z51.81 Encounter for therapeutic drug level monitoring; Z79.899 Other long term (current) drug therapy | CPT/HCPCS: 99212 ==

== ENCOUNTER 2025-08-31 16:04 | Outpatient (REF) | payer OTHER, SELFPAY ==
--- OUTSIDE RECORDS SUMMARY | 2025-06-03 16:00 | XMS_ITS ---
Author Organization [facility] Address [address] [place] [address] Care Team Providers Care Hogshead Wrecker Name Role Phone Hubert Henry Primary Care Provider Migration, Provider Unavailable Unavailable Allergies Allergen (clinical [...] review and pick correct strength-formula tion from [facility]. If intended option is not shown, [...] review and pick correct strength-formula tion from [employer] options. If intended option is not shown, [...] review and pick correct strength-formula tion from [employer] options. If intended option is not shown, [...] review and pick correct strength-formula tion from [employer] options. If intended option is not shown, discontinue and re-order from Quick Search* Not-Taking Acetaminophen-Codeine 300-30 MG 1 tab(s) orally every 6 hours for 7 days 4 Not-Taking Cholecalciferol 25 MCG 1 TAB(S) ORALLY ONCE A DAY for 90 DAYS *Please review and pick correct strength-formula tion from [employer] options. If intended option is not shown, discontinue and re-order from Quick Search* 4 Not-Taking Protonix 40 MG 1 tab(s) orally twice a day for 30 days 4 Not-Taking Social History Sex Assigned At : Social History Observation Description Sex Assigned At Female Encounters Encounter Location Date Provider Diagnosis [address] [address] 06/03/2025 Provider Migration Chronic obstructive pulmonary disease, [...] review and p ick correct strength-formulation from [employer] options. If intended option is not shown, [...] Details Provider Name:Hubert Henry, 09/01/2025 10:20:00 AM, [address] [place] [address], [phone], Progress Notes * Sandra SANCHEZDOB:1965 ( 60 yo F)Acc No.[id number]:06/03/2025 Patient: Sandra KURTZ Provider: :1965 A ge:59 Y S ex:Female Date:06/03/2025 Address:[address] [place], [place] [phone] Pcp:Hubert Henry Subjective: * Chief Complaints: * [...] *Please review and pick correct strength-formulation from [employer] options. If intended option is not shown, [...] *Please review and pick correct strength-formulation from [employer] options. If intended option is not shown, [...] *Please review and pick correct strength-formulation from [employer] options. If intended option is not shown, [...] Electronic signature of Prov ider Migration on 08/31/2025 at 11:15 PM EST Sign off status: Pending * Provider: Date: 0 06/03/2025 Generated for Nury wing/Hamilton/Mona on: 11/01/2024 11:15 PM EST
--- OUTSIDE RECORDS SUMMARY | 2025-08-28 04:35 | XMS_ITS ---
Author Organization [facility] Address [address] [place] [address] Care Team Providers Care Full Stack Developer Name Role Phone Hubert Henry Primary Care Provider [phone] REASON FOR VISIT pain Social History Sex Assigned At : Social History Observation Description Sex Assigned At Female Encounters Encounter Location Date Provider Diagnosis [address] [address] 08/28/2025 Hubert Henry Plan Of Treatment Next Appt Details Provider Name:Hubert Henry, 09/01/2025 10:20:00 AM, [address] [place] [address], [address], Progress Notes * MARTINSSandra LADOB:1965 ( 60 yo F)Acc No.[id number]:08/28/2025 Patient: Sandra KURTZ :1965 A ge:60 Y S ex:Female Address:[address] [place] [address], [address] [facility] , [place], [address] * true * Date: Generated for Nury wing/Hamilton/eTransmitting on: 11/01/2024 11:14 PM EST
--- NOTE | ~2025-08-31 | US_ITS ---
EXAMINATION: US LOWER EXTREMITY VEINS LIMITED LEFT HISTORY: M79.672 - Pain in left foot COMPARISON: There are no prior studies available for comparison. TECHNIQUE: Duplex and color Doppler sonographic examination of the deep venous system of the left lower extremity was performed. FINDINGS: The common femoral, superficial femoral, and popliteal veins are patent demonstrating normal compressibility, spontaneous flow, and augmentation. There is a normal color and spectral Doppler waveform appearance of the visualized deep venous system above the knee. The posterior tibial and peroneal veins are patent. US/US venous duplex LE LT IMPRESSION: No evidence of acute DVT in the left lower extremity. Electronically signed by: Jorge Arteaga MD 09/01/2025 07:19 AM [facility]
--- OUTSIDE RECORDS SUMMARY | 2025-08-31 23:14 | XMS_ITS | Encounter Summary ---
Author Organization [facility] Address [address] [place] [address] Care Team Providers Care Microbiology Laboratory Manager Name Role Phone Hubert Henry MD Primary Care Provider [phone] Encounter Details Date Type Department Care Team (Late Contact Info) Description 03/17/2025 Lab Requisition [facility] - Main Lab [address] [facility] [place] [address] Hubert Henry MD [address] [place] [address] Frequency of micturition Social History Tobacco Use [...] AM EST Office Visit Bariatric Surgery - [place] [address] [place] [address] Marianna Szymanski MD [address] [place] [address] documented as of this encounter Procedures [...] reflex microscopic (03/17/2025 12:00 AM EDT) Specific [place] Urine 1.014 1.003 - 1.030 LAB URINALYSIS - AUTOMATED METHOD 03/17/2025 8:35 PM [facility] pH, Urine 5.5 5.0 - 8.0 pH LAB URINALYSIS - AUTOMATED METHOD 03/17/2025 8:35 PM [facility] Leukocytes, Urine Moderate(A) Negative LAB URINALYSIS - AUTOMATED METHOD 03/17/2025 8:35 PM [facility] Nitrite, Urine Negative Negative LAB URINALYSIS - AUTOMATED METHOD 03/17/2025 8:35 PM [facility] Protein, Urine Negative <=Trace mg/dL LAB URINALYSIS - AUTOMATED METHOD 03/17/2025 8:35 PM [facility] Glucose, Urine Negative Negative mg/dL LAB URINALYSIS - AUTOMATED METHOD 03/17/2025 8:35 PM [facility] Ketones, Urine Negative Negative mg/dL LAB URINALYSIS - AUTOMATED METHOD 03/17/2025 8:35 PM EDT [facility] Urobilinogen , Urine 0.2 0.2 - 1.0 mg/dL LAB URINALYSIS - AUTOMATED METHOD 03/17/2025 8:35 PM [facility] Bilirubin, Urine Negative Negative LAB URINALYSIS - AUTOMATED METHOD 03/17/2025 8:35 PM [facility] Blood, Urine Negative Negative LAB URINALYSIS - AUTOMATED METHOD 03/17/2025 8:35 PM [facility] RBC, Urine 4.7(H) 0 - 4 /HPF LAB URINALYSIS - AUTOMATED METHOD 03/17/2025 8:35 PM [facility] WBC, Urine 24.3(H) 0 - 4 /HPF LAB URINALYSIS - AUTOMATED METHOD 03/17/2025 8:35 PM [facility] Squamous Epithelial, Urine 15 0 - 60 /LPF LAB URINALYSIS - AUTOMATED METHOD 03/17/2025 8:35 PM [facility] Bacteria, Urine Many(A) Negative /HPF LAB URINALYSIS - AUTOMATED METHOD 03/17/2025 8:35 PM [facility] Hyaline Casts, Urine 0.4 0 - 3 /LPF LAB URINALYSIS - AUTOMATED METHOD 03/17/2025 8:35 PM [facility] Urine Urine specimen obtained by clean catch procedure / Unknown 03/17/2025 03/17/2025 7:18 PM EDT us Hubert Henry MD LAB URINE ORDERABLES Final Re sult [facility] [address] [place] [address], [place] [phone] * (ABNORMAL) Culture urine (03/17/2025 12:00 AM EDT) Culture, Urine 50,000-100,000 CFU/mL Escherichia coli(A) EBONI 03/19/2025 12:13 PM EDT [facility] Urine Urine specimen obtained [...] OR DERABLES Final Result Performing Organization Address City/State/[facility] Co de Phone Number [facility] [address] [place] [address], documented in this encounter Visit Diagnoses Diagnosis Frequency of micturition Urinary frequency documented in this encounter Care Teams Microbiology Laboratory Manager Relationship Specialty Start Date End Date Hubert Henry MD [address] [place] [address] PCP - General Internal Medicine 06/23/22 documented as of this encounter
--- OUTSIDE RECORDS SUMMARY | 2025-08-31 23:14 | XMS_ITS | Encounter Summary ---
Author Organization [facility] Address [address] [place] [address] Care Team Providers Care Anesthesia Associate Name Role Phone Hubert Henry MD Primary Care Provider [phone] Encounter Details Date Type Department Care Team (Late st Contact Info) Description 04/11/2025 Lab Requisition [facility] - Main Lab [address] [facility] [place] [address] Hubert Henry MD [address] [place] [address] Dysuria Social History Tobacco Use Types Packs/Day [...] AM EST Office Visit Bariatric Surgery - [place] [address] [place] [address] Marianna Szymanski MD [address] [place] [phone] documented as of this encounter Procedures Procedure Name Priority Date/Time Associated Diagnosis Comments URINALYSIS WITH REFLEX MICROSCOPIC Routine 04/11/2025 4:30 PM EDT Dysuria URINALYSIS WITH REFLEX MICROSCOPIC Routine 04/11/2025 4:30 PM EDT Dysuria CULTURE URINE Routine 04/11/2025 4:30 PM EDT Dysuria documented in this encounter Results * Urinalysis with reflex microscopic (04/11/2025 4:30 PM EDT) Specific [place] Urine 1.018 1.003 - 1.030 LAB URINALYSIS [...] - AUTOMATED METHOD 04/11/2025 4:48 PM EDT [facility] Bilirubin, Urine Negative Negative LAB URINALYSIS - AUTOMATED METHOD 04/11/2025 4:48 PM EDT [facility] Blood, Urine Negative Negative LAB URINALYSIS - AUTOMATED METHOD 04/11/2025 4:48 PM EDT [facility] Urine Urine specimen obtained by clean catch procedure / Unknown Non-blood Collection / Unknown 04/11/2025 4:30 PM EDT 04/11/2025 4:32 PM EDT us Hubert Henry MD LAB URINE ORDERABLES Final Re sult Performing Organization Address City/[facility]/ZIP Co de Phone Number [facility] [address] [place] [address], [place] [phone] * Culture urine (04/11/2025 4:30 PM EDT) Culture, Urine 10,000-49,000 CFU/mL Mixed bacterial morphotypes present suggestive of possible contamination during collection. Suggest appropriate recollection if clinically indicated. 04/12/2025 3:24 PM EDT [facility] Urine Urine specimen obtained by clean catch procedure / Unknown Non-blood Collection / Unknown 04/11/2025 4:30 PM EDT 04/11/2025 4:32 PM EDT Hubert Henry MD LAB MICROBIOLOGY - GENERAL OR DERABLES Edited Result - Final Performing Organization Address City/[facility]/ZIP Co de Phone Number [facility] [address] [place] [address], [place] [phone] documented in this encounter Visit Diagnoses Diagnosis Dysuria documented in this encounter Care Teams Anesthesia Associate Relationship Specialty Start Date End Date Hubert Henry MD [address] [place], [place] PCP - General Internal Medicine 06/23/22 documented as of this encounter
--- OUTSIDE RECORDS SUMMARY | 2025-08-31 23:14 | XMS_ITS | Encounter Summary ---
Author Organization [facility] Address [address] [place] [address] Care Team Providers Care Veterinarian Name Role Phone Hubert Henry MD Primary Care Provider [phone] Encounter Details Date Type Department Care Team ([facility] Contact Info) Description 03/21/2025 Lab Requisition [facility] - Main Lab [address] [place] [address] Hubert Henry MD [address] [place], [place] Polymyalgia rheumatica (CMS/HCC V24) Social History [...] Upcoming Encounters Date Type Department Care Team ([facility] Contact Info) Description 11/07/2025 9:00 AM EST Office Visit Bariatric Surgery - [place] [address] [place] [address] Marianna Szymanski MD [address] [place] [phone] documented as of this encounter Procedures Procedure Name Priority Date/Time Associated Diagnosis Comments CENTROMERE ANTIBODIES Routine 03/21/2025 9:41 AM EDT Polymyalgia rheumatica ([facility] V24) RICCO IFA WITH TITER AND PATTERN Routine 03/21/2025 9:41 AM EDT Polymyalgia rheumatica ([facility] V24) CBC WITH AUTO DIFFERENTIAL Routine 03/21/2025 9:41 AM EDT Polymyalgia rheumatica ([facility] V24) SEDIMENTATION RATE Routine 03/21/2025 9: 41 AM EDT Polymyalgia rheumatica ([facility] V24) CBC AND DIFFERENTIAL Routine 03/21/2025 9:41 AM EDT Polymyalgia rheumatica ([facility] V24) C-REACTIVE PROTEIN Routine 03/21/2025 9: 41 AM EDT Polymyalgia rheumatica ([facility] V24) documented in this encounter Results [...] % [facility] 290 130 - 400 K/mcL LAB HEMETOLOGY METHOD 03/21/2025 5:25 PM EDT [facility] MPV 12.5(H) 7.0 - 11.0 FL LAB HEMETOLOGY METHOD [facility]/21[facility]2025 [facility] NRBC 0.0 <1.0 % LAB HEMETOLOGY METHOD 03/21/2025 5[facility] NR[facility] Absolute 0.00 <0.10 K/mcL [...] Final Re sult [facility] [address] [place] [address], * RICCO IFA with titer and pattern (03/21/2025 9:41 AM EDT) RICCO Negative Negative 03/23/2025 11:41 AM EDT [facility] Blood Venous blood specimen / Unknown 03/21/2025 9:41 AM EDT 03/21/2025 5:13 PM EDT Hubert Henry MD LAB BLOOD ORDERABLES Final Re sult [facility] [address] [place] [address], [place] [phone] * Centromere antibodies (03/21/2025 9:41 AM EDT) Pathologist [facility] Centromere Antibody 0.7 <7.0 U/mL 03/27/2025 11:34 AM EDT [facility] Comment: INTERPRETATION: Negative Test performed at [facility], [address], [place] [address] Yudith Geiger MD, PhD - Museum Service Scheduler Blood Venous blood specimen / Unknown 03/21/2025 9:41 AM EDT 03/21/2025 5:13 PM EDT Hubert Henry MD LAB BLOOD ORDERABLES Final Re sult Performing Organization Address [facility]/ZIP Co de Phone Number [facility] [address] [place] [address] * C-reactive protein (03/21/2025 9:41 AM EDT) [facility] C-Reactive Protein <0.29 <=0.50 mg/dL LAB CHEMISTRY METHOD 03/21/2025 6:25 PM EDT [facility] Blood Venous blood specimen / Unknown 03/21/2025 9:41 AM EDT 03/21/2025 5:13 PM EDT Hubert Henry MD LAB BLOOD ORDERABLES Final Re sult [facility] [address] [place] [address], [place] [phone] * (ABNORMAL) Sedimentation rate (03/21/2025 9:41 AM EDT) Sed Rate 74(H) 0 - 30 mm/hr LAB HEMETOLOGY METHOD 03/21/2025 5:47 PM EDT [facility] Blood Venous blood specimen / Unknown 03/21/2025 9:41 AM EDT 03/21/2025 5:13 PM EDT Hubert Henry MD LAB BLOOD ORDERABLES Final Re sult Performing Organization Address [facility] Co de Phone Number [facility] [address] [place] [address], documented in this encounter Visit Diagnoses Diagnosis Polymyalgia rheumatica (CMS/HCC V24) Polymyalgia rheumatica documented in this encounter Care Teams Veterinarian Relationship Specialty Start Date End Date Hubert Henry MD [address] [place], [place] PCP - General Internal Medicine 06/23/22 documented as of this encounter
--- OUTSIDE RECORDS SUMMARY | 2025-08-31 23:14 | XMS_ITS | Clinical Summary ---
Author Organization [facility] Address [address] [place] [address] Phone Care Team Providers Care Insolvency Practitioner Name Role Phone Hubert Henry MD Primary Care Provider [phone] Allergies Active Allergy Reactions Criticality Noted Date [...] EST Hospital Encounter [facility] [address] [place] [phone] Encounter for screening mammogram for malignant neoplasm of breast Discharge Disposition: Home or Self Care 07/26/2025 4:00 PM EST Office Visit Bariatric Surgery [facility] [address] [phone] Yecenia Haynes MD S/P gastric bypass (Primary Dx); Hx of iron deficiency; Left lower quadrant abdominal pain; Diastasis recti; Constipation, unspecified constipation type 06/20/2025 Telephone Bariatric Surgery [facility] 175 [facility] [address] [place] [phone] Yecenia Haynes MD 06/19/2025 Telephone Gastroenterology [facility] [address] [place] [phone] Kevin Guardado MD 06/16/2025 9:29 AM EDT - 06/16/2025 11:59 PM EDT Hospital Encounter [facility] CT Scan [address] [place] [phone] Incisional hernia, without obstruction or gangrene Discharge Disposition: Home or Self Care from Last 3 Months Immunizations Immunization Administration Dates Next Due Hepatitis B (Tpbayrg-M-Eqzho , Recombivax HB-Adult) 19yo and older 11/11/2022,02/20/2021 Influenza Quadrivalent, 0.5m l, preservative free (Fluarix; FluLaval; Fluzone) ages 6mo and older (Afluria) 3yo and older 08/28/2023,11/11/2022 Influenza trivalent, with pr eservative (Fluzone; Afluria) 6mo and older 08/28/2021 Surgical History Surgery Date Site/Laterality Comments HERNIA REPAIR PROCEDURE: HISTORICAL HERNIA REPAIR/ING OTHER SURGICAL HISTORY PROCEDURE: [place] ECTOPIC ABDL GASTRIC BYPASS 09/21/2007 PROCEDURE: [...] SWAPNA (iron deficiency anemia); COMMENT: Gastric bypass 2009 Insomnia 03/20/2015 DX:Insomnia History of syphilis 03/20/2015 [...] AM EST Office Visit Bariatric Surgery - [address] [place] [address] Marianna Szymanski MD [address] [place] [phone] Health Maintenance Due Date Last Done [...] Additional history exists Breast Cancer Screening 07/27/2027 07/27/20 25, 01/02/2022, 01/05/2019 DTaP,Tdap,and Td Vaccines (2 - [...] EDT Incisional hernia, without obstruction or gangrene COMPREHENSIVE METABOLIC PANEL Routine 03/10/2025 11:30 AM [...] year. Mammo Location: [facility], [address] [place] [address], [address], . -------- FINAL REPORT -------- Dictated By: Sivakumar Alatorre Dictated Date: 07/27/2025 10:04 ET Assigned Physician: Sivakumar Alatorre Reviewed and Electronically Signed By: Sivakumar Alatorre Signed Date: 07/27/2025 11:03 ET Workstation ID: [id number] Transcribed By: Self Edit Transcribed Date: 07/27/2025 [...] year. Mammo Location: [facility], [address] [place] [address], [phone], . -------- FINAL REPORT -------- Dictated By: Sivakumar Alatorre Dictated Date: 07/27/2025 10:04 ET Assigned Physician: Sivakumar Alatorre Reviewed and Electronically Signed By: Sivakumar Alatorre Signed Date: 07/27/2025 11:03 ET Workstation ID: [id number] Transcribed By: Self Edit Transcribed Date: 07/27/2025 [...] Signed Date: 06/21/2025 12:07 ET Workstation ID: [id number] Transcribed By: Self Edit Transcribed Date: 06/21/2025 [...] small bowel resections of small bowel obstruction. [id number] bypass. BONES AND SOFT TISSUES: Scattered degenerative [...] Signed Date: 06/21/2025 12:07 ET Workstation ID: [id number] Transcribed By: Self Edit Transcribed Date: 06/21/2025 12:02 ET us Yecenia Haynes MD [facility] PROCEDURES Final Result * (ABNORMAL) Comprehensive metabolic panel (03/10/2025 11:30 AM EDT) Sodium 143 133 - 145 mmol/L LAB CHEMISTRY METHOD 03/10/2025 4:46 PM [facility] Potassium 4.0 3.5 - 5.5 mmol/L LAB CHEMISTRY METHOD 03/10/2025 4:46 PM [facility] Chloride 111(H) 96 - 110 mmol/L LAB CHEMISTRY METHOD 03/10/2025 4:46 PM [facility] CO2 24 21 - 32 mmol/L LAB CHEMISTRY METHOD 03/10/2025 4:46 PM [facility] Anion Gap 8 3 - 11 LAB CHEMISTRY METHOD 03/10/2025 4:46 PM [facility] Glucose 88 70 - 100 mg/dL LAB CHEMISTRY METHOD 03/10/2025 4:46 PM [facility] BUN 13 5 - 25 mg/dL LAB CHEMISTRY METHOD 03/10/2025 4:46 PM [facility] Creatinine 0.61 0.50 - 1.10 mg/dL LAB CHEMISTRY METHOD 03/10/2025 4:46 PM [facility] eGFR 102 >=60 mL/min/1. 73m2 LAB CHEMISTRY METHOD 03/10/2025 4:46 PM [facility] Comment:Calculation based on the Chronic Kidney Disease Epidemiology Collaboration (CKD-EPI) equation refit without adjustment for race. BUN/Creatinine Ratio 21.3 LAB CHEMISTRY METHOD 03/10/2025 4:46 PM [facility] Calcium 9.1 8.5 - 10.5 mg/dL LAB CHEMISTRY METHOD 03/10/2025 4:46 PM [facility] AST (SGOT) 22 10 - 42 unit/L LAB CHEMISTRY METHOD 03/10/2025 4:46 PM [facility] ALT (SGPT) 23 10 - 60 unit/L LAB CHEMISTRY METHOD 03/10/2025 4:46 PM [facility] Alkaline Phosphatase 104 42 - 121 unit/L LAB CHEMISTRY METHOD 03/10/2025 4:46 PM EDT [facility] Total Protein 7.3 6.0 - 8.0 g/dL LAB CHEMISTRY METHOD 03/10/2025 4:46 PM EDT [facility] Albumin 3.3 3.2 - 5.0 g/dL LAB CHEMISTRY METHOD 03/10/2025 4:46 PM EDT [facility] Total Bilirubin 0.3 0.0 - 1.4 mg/dL LAB CHEMISTRY METHOD 03/10/2025 4:46 PM EDT [facility] Blood Venous blood specimen / Unknown Venipuncture / Unknown 03/10/2025 11:30 AM EDT 03/10/2025 11:30 AM EDT us Yecenia Haynes MD LAB BLOOD ORDERABLES Fi nal Result [facility] [address] [place] [address], from Last 3 Months or Most Recently Relevant to Health Maintenance Insurance [facility] MEDIC[facility] Member Subscriber Plan / Payer (Ef fective 2016-Present) Name:SANDRA MARTINS Relation to Subscriber:Self Name:Sandra Martins Payer ID:[id number] Group ID:[id number] Type:Not on file Address: [facility] [place] [phone] Advance Directives Documents on File Type Date Recorded 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 Advance Directives and Living Will 12/02/2024 11:05 AM PROXY Advance Directives and Living Will 11/21/2024 2:16 PM PROXY Advance Directives and Living Will 11/21/2024 1:22 PM [facility] Proxy Advance Directives and Living Will 11/12/2024 [...] Agents on File Name Relationship Healthcare Agent [facility] p Communication Ramona Greenfield Daughter Health Care Agent Salima Green[place] Relative First Alternate Health Care Agent Care Teams Insolvency Practitioner Relationship Specialty Start Date End Date Hubert Henry MD [address] [place] [address] [place] PCP - General Internal Medicine 06/23/22
--- OUTSIDE RECORDS SUMMARY | 2025-08-31 23:15 | XMS_ITS | Patient Health Record ---
Author Organization [facility] Address [address] [place] [address] Care Team Providers Care Grade Recorder Name Role Phone Hubert Henry Primary Care Provider [facility], Nursing Unavailable [phone] Lev Mcelroy Unavailable [phone] Migration, Provider Unavailable Unavailable Allergies Allergen (clinical [...] Reviewed date:05/25/2025 02:44:18 PM Interpretation:negative Performing Lab:NL2, [facility] [id number] Lisa Malagon, Director - [address] [place] [address] Notes/Report: NON-FASTING CLINICAL INFORMATION: None g iven LMP: NONE GIVEN PREV. PAP: NONE GIVEN PREV. BX: NONE GIVEN SOURCE: None given STATEMENT OF ADEQUACY: Satisfactory for evaluation. Endocervical/transforma tion zone component present. INTERPRETATION/RESULT: Cytology Results: Negative for intraepithelial lesion or malignancy. COMMENT: This Pap test has been evaluated with the ThinPrep(R) Imaging System. PROCESS SAFETY MANAGEMENT ENGINEER: CHANDRAKANT ROBERTS(ASCP) CT Screening Location: [facility] [address], [place] [address]. CLIA: [id number] Slide preparation performed at: [facility], [address] [place] [address] CLIA: [id number] COMMENT EXPLANATORY NOTE: The Pap is a [...] test SurePath(TM) specimens have been determined by [facility]. The modifications have not been cleared or approved by the FDA. This assay has been validated pursuant to the CLIA regulations and is used for clinical purposes. For additional information, please refer to https://education.Smallaa/faq/FAQ 154 (This link is being provided for information/ educational purposes only.) URINALYSIS WITH REFLEX MICRO SCOPIC Reviewed date:04/11/2025 05:42:41 PM Interpretation:Negative Performing Lab: Notes/Report: [facility] [place] Urine 1.018 1.003-1.030 pH, Urine 5.5 5.0-8.0 [...] 02:00:45 PM Interpretation:leukocytes Performing Lab: Notes/Report: [facility] [place] Urine 1.014 1.003-1.030 pH, Urine 5.5 5.0-8.0 [...] <7.0 U/mL INTERPRETATION: Negative Test performed at [facility], [address] [place] [address] Yudith Geiger MD, PhD - Chief Lifestyle Officer CT Abdomen Pelvis WO Cont Reviewed date:06/22/2025 05:48:19 PM Interpretation:Abnormal Performing Lab: Notes/Report: Abnormal MG MAMMO DIGITAL SCREENING W SARA BILAT Reviewed date:07/27/2025 05:20:50 PM Interpretation:Normal Performing Lab: Notes/Report: See Note [facility], a member of [employer] CLINICAL: 60 years old, Female, routine annual [...] year. Mammo Location: [facility], [address] [place] [address], [address], . -------- FINAL REPORT -------- Dictated By: Sivakumar Alatorre Dictated Date: 07/27/2025 10:04 ET Assigned Physician: Sivakumar Alatorre Reviewed and Electronically Signed By: Sivakumar Alatorre Signed Date: 07/27/2025 11:03 ET Workstation ID: [id number] Transcribed By: Self Edit Transcribed Date: 07/27/2025 10:05 ET Reason For Referral Reason Alex [address] , [place], [place] P: [phone] F: [phone] Knee high compression stockings, 2 pairs Diagnosis 1 Lymphedema, not else where classified (I89.0) Referral Organization [facility] Referring Provider First Name Hubert Referring Provider Last Name Carl Referring Provider Speciality Internal M edicine Referred Provider [facility] General Notes Lay Carter 07/2025 12:50:42 PM > faxed to [facility] Referral Priority Routine Reason [facility] [facility] - XL 8/day #240 5 rf Diagnosis 1 Functional urinary i ncontinence (R39.81) Referral Organization [facility] Referring Provider First Name Hubert Referring Provider Last Name Carl Referring Provider Speciality Internal edicine Referred Organization [facility] Referred Provider [facility] Referred Address [address] [place], [place],[address], General Notes Marlene Lang 04/14/2025 09:47:04 AM > rx and referral faxed to Rickey dye Katelyn 04/26/2025 11:00:16 AM > pt reports they are getting picked up today Referral Priority Routine Reason [facility] [address] [place] P: [phone] F: [phone] Patient over 1/2 year past long ICU stay and has persistent genralized pain, ESR 74, rest of lab eval is really OK. Could this be PMR (I have not tried steroids yet). She is going for fibromayalgia. I also owonder if it is a [id number] syndrome. Referral Organization [facility] Referring Provider First Name Hubert Referring Provider Last Name Carl Referring Provider Speciality Internal edicine Referred Provider Specialty Rheumatology General Notes Lay Carter 09:38:57 AM > Faxed to [facility] Referral Priority Routine Referral Appointment Date 05/03/2026 Reason [employer], [address] [place] P: [phone] F: Provide #1 motorized scooter Referral Organization [facility] Referring Provider First Name Hubert Referring Provider Last Name Boydvenkat Referring Provider Speciality Internal M edicine Referred Organization [facility] Referred Provider [employer] Referred Address [address] [place], [place],[address], Referred Provider Specialty Other suppli er General [...] again today 06/27/25 via email. On 06/19/25, PT, Rhett Herrera stated he was still working on it. Referral Priority Routine Reason [facility] are, [address], [place] P: [phone] F: [phone] for [facility] - deconditioned and recent fall Referral Organization [facility] Referring Provider First Name Hubert Referring [...] a day for 30 days 2025 Active Losartan Potassium 100 mg TAKE 1 TABLET BY MOUTH ONCE DAILY for 30 Active Budesonide-Formoterol Fumarate 160-4.5 MCG/ACT INHALE 2 PUFFS BY MOUTH INTO THE lungs two (2) times a day. rinse mouth and throat after use. MAY USE 2 PUFFS NEEDED EVERY 4 HOURS FOR SHORTNESS OF BREATH. maximum 12puffs/24hrs for 30 Active Furosemide 20 mg TAKE 1 TABLET BY MOUTH ONCE DAILY for 30 Active Nicotine 14 MG/24HR APPLY 1 PATCH ONCE DAILY FOR 28 DAYS for 28 Active Naproxen 500 mg TAKE 1 TABLET [...] review and pick correct strength-formulatio n from [employer] options. If intended option is not shown, [...] orally once a day (at bedtime) Active Folic Acid 1 mg TAKE 1 TABLET BY MOUTH ONCE DAILY for 90 Active Pregabalin 200 mg TAKE 1 CAPSULE BY MOUTH two (2) times a day for 30 08/29/2025 Active Ulises-Gest Antacid 500 MG CHEW AND SWALLOW 1 TABLET BY MOUTH ONCE DAILY NEEDED Orally Once a day for 90 days Active Potassium Chloride ER 10 mEq TAKE [...] (20 or more) IM Intramuscular 02/08/2018 Administered [facility] [id number] PPSV 23 IM Intramuscular 07/06/2018 Administered Influenza IM Intramuscular 07/21/2018 Administered Tdap IM Intramuscular 12/08/2018 Administered [facility] 49 [id number] Influenza IM Intramuscular 11/14/2019 Administered [facility] 49 [id number] [employer] Covid-19 Vaccine Administration - First Dose (Single Dose 30MCG/0.3ML 1ST) Unknown 02/01/2021 Administered Hepatitis B (20 or more) IM Intramuscular 02/20/2021 Administered [employer] Covid-19 Vaccine Administration-Secon d Dose (Single Dose 30MCG/0.3ML 2ND) IM Intramuscular 02/22/2021 Administered [facility] Influenza IM Intramuscular 08/28/2021 Administered hepatitis [...] Status W/U Status Risk Notes Problem Hypothyroidism (96767125) Hypothyroidism, unspecified (E03.9) Active confirmed Problem Morbid obesity (disorder) (416687508) Morbid (severe) obesity due to excess calories (E66.01) Active confirmed Problem Alcohol induced disorder co-occurrent and due to alcohol dependence (disorder) (340413987120236) Alcohol dependence with other alcohol-induced disorder (F10.288) Active confirmed Problem Tobacco user (985458172) Nicotine dependence, cigarettes, uncomplicated (F17.210) Active confirmed Problem Nicotine dependence (86567842) Nicotine dependence, cigarettes, with other nicotine-induced disorders (F17.218) Active confirmed Problem Mild recurrent major depression (27099816) Major depressive disorder, recurrent, mild (F33.0) Active confirmed Problem Dysthymia (18705807) Dysthymic disorder (F34.1) Active confirmed Problem New daily persistent headache (893554813751786) New daily persistent headache (NDPH) (G44.52) Active confirmed Problem 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) Active confirmed Problem Chronic pain syndrome (101608306) Chronic pain syndrome (G89.4) Active confirmed Problem Essential hypertension (09189807) Essential (primary) hypertension (I10) Active confirmed Problem Long QT syndrome (7639424) Long QT syndrome (I45.81) Active confirmed Problem Raynaud's disease (322409423) Raynaud's syndrome without gangrene (I73.00) Active confirmed Problem Peripheral vascular disease (743917933) Peripheral vascular disease, unspecified (I73.9) Active confirmed Problem Lymphedema (117328857) Lymphedema, not elsewhere classified (I89.0) Active confirmed Problem Seasonal allergic rhinitis (883474412) Other seasonal allergic rhinitis (J30.2) Active confirmed Problem Chronic sinusitis (55891472) Chronic sinusitis, unspecified (J32.9) Active confirmed Problem Chronic obstructive pulmonary disease (43246002) Chronic obstructive pulmonary disease, unspecified (J44.9) Active confirmed Problem Gastritis (3601576) Other gastritis without bleeding (K29.60) Active confirmed Problem Hernia of abdominal cavity (disorder) (85490334) Other specified abdominal hernia without obstruction or gangrene (K45.8) Active confirmed Problem 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) 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) Active confirmed Problem Chronic ulcer of skin (69656524) Non-pressure chronic ulcer of skin of other sites limited to breakdown of skin (L98.491) Active confirmed Problem Polymyalgia rheumatica (59322524) Polymyalgia rheumatica (M35.3) Active confirmed Problem Sciatica (20893677) Lumbago with sciatica, right side (M54.41) Active confirmed Problem Sciatica (83712264) Lumbago with sciatica, left side (M54.42) Active confirmed Problem Diastasis of muscle (813202132) Separation of muscle (nontraumatic), unspecified site (M62.00) Active confirmed Problem Menopause (831985896) Menopausal and female climacteric states (N95.1) Active confirmed Problem Functional urinary incontinence (231340060) Functional urinary incontinence (R39.81) Active confirmed Problem History of bariatric surgical procedure (049066751) Bariatric surgery status (Z98.84) Active confirmed Cristina en Y surgery Problem Acute pancreatitis (560209062) Acute pancreatitis without necrosis or infection, unspecified (K85.90) 024 Active confirmed Problem Body mass index 35.00 to 39.99 (593690164219981) Body mass index [BMI] 36.0-36.9, adult (Z68.36) Active confirmed Problem Obese class II (344553231838178) Body mass index [BMI] 35.0-35.9, adult (Z68.35) Inactive confirmed Problem Body mass index 40+ - severely obese (675745500) Body mass index [BMI] 40.0-44.9, adult (Z68.41) Inactive confirmed Vital Signs Temperature 98.4 degrees Fahrenheit 06/27/2025 Blood pressure diastolic 74 06/27/2025 Oximetry 96 06/27/2025 Height 65 in 06/27/2025 Blood pressure systolic 118 06/27/2025 Weight 221.6 lbs 06/27/2025 BMI 36.87 kg/m2 06/27/2025 Encounters Encounter Location Date Provider Diagnosis [address] [address] 06/03/2025 Provider Migration Chronic obstructive pulmonary disease, unspecified J44.9 ; Other seasonal allergic rhinitis J30.2 and Other chest pain R07.[address] [address] 02/03/2025 Hubert Henry Encounter for screening for COVID-19 Z11.52 ; Acute pancreatitis without necrosis or infection, unspecified K85.90 ; Hypothyroidism, unspecified E03.9 ; Major depressive disorder, recurrent, mild F33.0 ; Alcohol dependence with other alcohol-induced disorder F10.288 ; Essential (primary) hypertension I10 and Non-pressure chronic ulcer of skin of other sites limited to breakdown of skin L98.[address] [address] 03/17/2025 Hubert Henry Encounter for screening for COVID-19 Z11.52 ; Polymyalgia rheumatica M35.3 ; Raynaud's syndrome without gangrene I73.00 ; Unspecified abdominal pain R10.9 ; Nicotine dependence, cigarettes, uncomplicated F17.210 ; Essential (primary) hypertension I10 ; Chronic pain syndrome G89.4 ; Major depressive disorder, recurrent, mild F33.0 and Non-pressure chronic ulcer of skin of other sites limited to breakdown of skin L98.[address] [address] 03/21/2025 Nursing [facility] Encounter for screening, unspecified Z13.[address] [address] 04/11/2025 Nursing [facility] Encounter for screening, unspecified Z13.[address] [address] 05/05/2025 Hubert Henry Encounter for screening for COVID-19 Z11.52 ; Polymyalgia rheumatica M35.3 ; Functional urinary incontinence R39.81 ; Telogen effluvium L65.0 ; 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 ; Essential (primary) hypertension I10 and Lymphedema, not elsewhere classified I89.[address] [address] 05/17/2025 Lev Mcelroy Encounter for screening for [...] COVID-19 Z11.52 and Other chest pain R07.89 [facility] [address] [place] [address] [place] [id number] 06/16/2025 Hubert Henry Encounter for screening for COVID-19 Z11.52 ; Polymyalgia rheumatica M35.3 ; Lymphedema, not elsewhere classified I89.0 ; Functional urinary incontinence R39.81 ; Bariatric surgery status Z98.84 and Other specified abdominal hernia without obstruction or gangrene K45.[address] [address] 06/27/2025 Hubert Henry Encounter for screening for [...] site M62.00 and Drug induced constipation K59.[address] [address] 11/09/2024 Hubert Henry [address] [address] 11/23/2024 Hubert Henry [address] [address] 01/19/2025 Hubert Henry [address] [place] [address] 01/25/2025 Hubert Henry [address] [address] 02/17/2025 Hubert Henry Chronic obstructive pulmonary disease, unspecified J44.[address] [address] 02/24/2025 Hubert Henry [address] [address] 03/09/2025 Hubert Henry [address] [address] 03/19/2025 Hubert Henry [address] [address] 03/21/2025 Hubert Henry [address] [address] 03/22/2025 Hubert Henry [address] [address] 03/22/2025 Hubert Henry [address] [address] 03/29/2025 Hubert Henry Hypothyroidism, unspecified E03.[address] [address] 04/03/2025 Hubert Henry [address] [address] 04/06/2025 Hubert Henry [address] [address] 04/10/2025 Hubert Henry [address] [address] 04/12/2025 Hubert Henry [address] [address] 04/14/2025 Hubert Henry [address] [address] 04/26/2025 Hubert Henry [address] [address] 05/05/2025 Hubert Henry Functional urinary incontinence R39.[address] [address] 05/09/2025 Hubert Henry [address] [address] 05/19/2025 Hubert Henry [address] [address] 06/07/2025 Hubert Henry [address] [address] 06/12/2025 Hubert Henry Other chest pain R07.[address] [address] 08/28/2025 Hubert Henry Assessments Encounter Date Diagnosis (ICD Code) Assessment [...] transferred to labeled spec tube, awaiting lab sisal picker. 02/03/2025 Acute pancreatitis without necrosis or infection, unspecified (ICD-10 - K85.90) miriam went through a lot and is stable and much improved. waiting to get home care going with PT MAy need new [employer] application. She syas she has enough meds (list reviewed) for now. 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 If labs negative, then go the [facility] route. 05/05/2025 Lymphedema, not elsewhere classified (ICD-10 [...] transferred to labeled spec tube, awaiting lab sisal picker. 05/05/2025 Other 05/17/2025 Other 06/16/2025 Other [...] COMPLETE W/REFLEX TO CULTURE 10/08/2017 PROTHROMBIN TIME-INR 10/15/2017 PROTHROMBIN TIME-INR 11/13/2017 PROTHROMBIN TIME-INR 12/05/2019 MITOCHONDRIAL ANTIBODY W/REFL TITER 03/21 LIVER FIBROSIS, [...] Provider Name:Hubert Henry, 09/01/2025 10:20:00 AM, [address] [facility], [place], [address], Insurance Providers Payer Name Payer Address Payer Phone Subscriber Number Group Number Insured Name Patient Relationship to Insured Coverage Start Date Coverage End Date [facility] [address] [place] [phone] [id number] Miriam Martins Self - patient is the insured 6 [place] Medicaid Standard [address] [place] [address] [id number] Miriam Martins Self - patient is the insured 5 Medications Administered Medication Instructions Date of Administration Dosage Notes Ketorolac 07/06/2018 30 mg Ketorolac 08/04/2018 30 mg No NDC on vial Ketorolac 08/04/2018 30 mg No NDC on vial Medical (General) History Medical History History ICD Code hypertension hypothyroid migraine depression lumbar spine issues tobacco use 04/2017: [facility] Admission for Ch est pain. : W/U [...] fusion and nonsegmental fixation gastric by-pass in [place] 2009 tubal libation 20 years ago hernia [id number] ago Hospitalization History Reason Date(Month/Year) [facility] inpt + UTI, hypoalbuminemia, alcohol ic hepatitis 11/06 Rectal reading 10/08 [facility] Chest pain x 3 days 05/02/17 [facility], back surgery 11/2015 [facility] anxiety 2013 gastric bypass 2009
== END 2025-08-31 16:05 | disposition home or self-care (01) ==
LOC: HO.US 16:04
PROVIDERS: Visit Provider Student in an Organized Health Care Education/Training Program
DX: M79.672 Pain in left foot (principal)
CPT/HCPCS: 93971

== ENCOUNTER → 2025-08-31 16:08 | Outpatient (BNV) | payer OTHER, SELFPAY | PROVIDERS: Visit Provider Radiology Diagnostic Radiology | DX: M79.672 Pain in left foot (principal) | CPT/HCPCS: 93971 ==

== ENCOUNTER 2025-09-05 12:57 | Outpatient (AMB) | payer OTHER, SELFPAY ==
--- OUTSIDE RECORDS SUMMARY | 2025-06-03 16:00 | XMS_ITS ---
Author Organization [facility] Address [address] [place] [address] Care Team Providers Care Electron Microscopist Name Role Phone Hubert Henry Primary Care [...] review and pick correct strength-formula [facility]ion from [facility]. If intended option is not [...] review and pick correct strength-formula tion from [facility] options. If intended option is not shown, [...] review and pick correct strength-formula tion from [employer] options. If intended option is not shown, [...] review and pick correct strength-formula tion from [employer] options. If intended option is not shown, discontinue and re-order from Quick Search* Not-Taking Acetaminophen-Codeine 300-30 MG 1 tab(s) orally every 6 hours for 7 days 4 Not-Taking Cholecalciferol 25 MCG 1 TAB(S) ORALLY ONCE A DAY for 90 DAYS *Please review and pick correct strength-formula tion from [employer] options. If intended option is not shown, discontinue and re-order from Quick Search* 4 Not-Taking Protonix 40 MG 1 tab(s) orally twice a day for 30 days 4 Not-Taking Social History Sex Assigned At : Social History Observation Description Sex Assigned At Female Encounters Encounter Location Date Provider Diagnosis [address] [address] 06/03/2025 Provider Migration Chronic obstructive pulmonary disease, [...] review and p ick correct strength-formulation from [employer] options. If intended option is not shown, [...] days Next Appt Details Provider Name:Hubert Henry, 11/24/2025 10:20:00 AM, [address] [place] [address], [phone], Progress Notes * Sandra SANCHEZDOB:1965 ( 60 yo F)Acc No.[id number]:06/03/2025 Patient: Sandra KURTZ Provider: :1965 A ge:59 Y S ex:Female Date:06/03/2025 Address:[address] [place], [place] [phone] Pcp:Hubert Henry Subjective: * Chief Complaints: * [...] *Please review and pick correct strength-formulation from [employer] options. If intended option is not shown, [...] *Please review and pick correct strength-formulation from [employer] options. If intended option is not shown, [...] *Please review and pick correct strength-formulation from [employer] options. If intended option is not shown, [...] Electronic signature of Prov ider Migration on 09/05/2025 at 04:51 PM EST Sign off status: Pending * Provider: Date: 0 06/03/2025 Generated for Nury wing/Hamilton/Mona on: 11/06/2024 04:51 PM EST
--- OUTSIDE RECORDS SUMMARY | 2025-09-01 05:20 | XMS_ITS ---
Author Organization [facility] Address [address] [place] [address] Care Team Providers Care Singing Telegram Performer Name Role Phone Hubert Henry Primary Care Provider Allergies Allergen (clinical drug ingredient) Drug/Non Drug Allergy documented on EMR Reaction Allergy Type Onset Date Status clonidine cloNIDine insomnia/nightma res Drug Allergy Active Results Component Value Reference Range Notes CULTURE URINE Reviewed date:09/05/2025 10:49:05 AM Interpretation:Mixed beatriz (see U/A) Performing Lab: Notes/Report: Culture, Urine 10,000-49,000 CFU/mL Mixed urogenital beatriz, no uropathogens present. Suggest repeat specimen if clinically indicated. REASON FOR VISIT Office, 2 month f/u, HUDDLE: PCV 20; COVID vax; Shingrix, VISIT:L PMR; weight; mood; BP; constipation, Symptom screening by [facility] staff pre entrance to clinic Medications Medication SIG (Take, Route, Frequency, Duration) Notes Start Date End Date Status Budesonide-Formoterol Fumarate 160-4.5 MCG/ACT INHALE 2 PUFFS BY MOUTH INTO THE lungs two (2) times a day. rinse mouth and throat after use. MAY USE 2 PUFFS NEEDED EVERY 4 HOURS FOR SHORTNESS OF BREATH. maximum 12puffs/24hrs for 30 Active Fexofenadine HCl 180 mg TAKE 1 TABLET BY MOUTH ONCE DAILY AT BEDTIME NEEDED FOR ALLERGY for 90 Active Ulises-Gest Antacid 500 MG CHEW AND SWALLOW 1 TABLET BY MOUTH ONCE DAILY NEEDED Orally Once a day for 90 days Active Pregabalin 200 mg TAKE 1 CAPSULE BY MOUTH two (2) times a day for 30 08/29/2025 Active Folic Acid 1 mg TAKE 1 TABLET BY MOUTH ONCE DAILY for 90 Active Nicotine 14 MG/24HR APPLY 1 PATCH ONCE DAILY FOR 28 DAYS for 28 Active Potassium Chloride ER 10 mEq TAKE 1 TABLET BY MOUTH two (2) times a day for 30 Active Solifenacin Succinate 10 mg TAKE 1 TABLET BY MOUTH ONCE DAILY for 30 Active Naproxen 500 mg TAKE 1 TABLET BY MOUTH two (2) times a day NEEDED FOR PAIN ON CHEST for 14 Active Budesonide-Formoterol Fumarate 160-4.5 MCG/ACT 2 puffs Inhalation twice a day for 30 days replaces btanded Symbicort 09/03/2025 Active Losartan Potassium 100 mg TAKE 1 TABLET BY MOUTH ONCE DAILY for 30 Active MiraLax 17 GM/SCOOP as directed Orally daily for 28 days one scoop in 8 oz water or juice 06/27/2025 Active traMADol HCl 50 MG 1 tablet as needed Orally every 8 hrs for 7 days 06/27/2025 Active Levothyroxine Sodium 137 MCG 1 tab(s) orally once a day for 30 days Active LORazepam 1 MG 1 tab(s) orally every 6 hours for 30 days 03/20/2025 Active Ferrous Sulfate 325 (65 Fe) MG 1 tab(s) orally once a day for 90 days Active Atorvastatin Calcium 40 MG 1 tab(s) orally once a day for 30 days Active busPIRone HCl 10 MG 1 tab(s) orally 2 times a day Active Vitamin D3 25 MCG 1 tab(s) orally once a day Active Mirtazapine 7.5 MG 2 tab(s) orally once a day (at bedtime) Active Incruse Ellipta 62.5 MCG (0.0625 MG)/INH 1 INH INHALED EVERY 24 HOURS for 28 DAYS *Please review and pick correct strength-formulat ion from [employer] options. If intended option is not shown, discontinue and re-order from Quick Search* 05/17/2025 Active Cyclobenzaprine HCl 5 MG 1 tablet at bedtime as needed Orally Once a day Active Hydroxychloroquine Sulfate 200 MG 1 tab Orally twice a day Active Social History Tobacco Use: Social History Observation [...] q uitting Patient counseled on the bebeto coles of tobacco use and advised to quit: 02/03/2025 Section Notes: Smoking status: about 6 sigs a day New sexual parter? NO Substance abuse status: NO Problems Problem Type SNOMED Code ICD Code Onset Dates Problem Status W/U Status Risk Notes Problem Body mass index 35.00 to 39.99 ([id number] 105) Body mass index [BMI] 39.0-39.9, adult (Z68.39) Active confirmed Vital Signs Temperature 97.4 degrees Fahrenheit 09/01/20 25 Height 65 in 09/01/2025 Weight 237.6 lbs 09/01/2025 BMI 39.53 kg/m2 09/01/2025 Oximetry 98 09/01/2025 Blood pressure systolic 112 09/01/20 25 Blood pressure diastolic 80 025 Encounters Encounter Location Date Provider Diagnosis [address] [address] 09/01/2025 Hubert Henry Encounter for screening for COVID-19 Z11.52 ; Morbid (severe) obesity due to excess calories E66.01 ; Dysuria R30.0 ; Bariatric surgery status Z98.84 ; Dysthymic disorder F34.1 ; Nicotine dependence, cigarettes, uncomplicated F17.210 ; Chronic obstructive pulmonary disease, unspecified J44.9 ; Essential (primary) hypertension I10 ; Chronic pain syndrome G89.4 ; Other specified abdominal hernia without obstruction or gangrene K45.8 ; Separation of muscle (nontraumatic), unspecified site M62.00 ; Body mass index [BMI] 39.0-39.9, adult Z68.39 and Polymyalgia rheumatica M35.3 Assessments Encounter Date Diagnosis (ICD Code) Assessment Notes Treatment Notes Treatment Clinical Notes Section Notes 09/01/2025 Encounter for screening for COVID-19 (ICD-10 - [...] you are having concerning symptoms for COVID-19. 09/01/2025 Morbid (severe) obesity due to excess calories (ICD-10 - E66.01) She asked afew times abotu getting on weight loss shots. We alos discussed alst time in. Wiht her past bariatric surgery and later bowel surgery I really want her to review this with batroiatric surgeon. her appt is in October and I told her I just do not want to risk causing mroe stimach or bowel problems. Her general surgeon agfreed and had referred her to bariatrics fiurst 09/01/2025 Dysuria (ICD-10 - R30.0) broiguth uoa s she wa sleaving, Will gte U/A and culture 09/01/2025 Bariatric surgery status (ICD-10 - Z98.84) Cristina en Y surgery as note abive. Clearly weight not where it shouelbe. 09/01/2025 Dysthymic disorder (ICD-10 - F34.1) Chrinic and she is holding libe pretty well. 09/01/2025 Nicotine dependence, cigarettes, uncomplicated (ICD-10 - F17.210) Trying to cut back more. Support today 09/01/2025 Chronic obstructive pulmonary disease, unspecified (ICD-10 - J44.9) We nee to swithgc to beneric rpoduct-sent. Continue 2 pouffs twice a day as control pretty good! 09/01/2025 Essential (primary) hypertension (ICD-10 - I10) Repeat BP in rnage-no chnage 09/01/2025 Chronic pain syndrome (ICD-10 - G89.4) I had been going with PMR as ESR up but rheum apoparently thinks fibromyalgia which wa sour previoius workign dx. And also RA accoiuntingnfor the ESR. Plus not good response tpo low dose prednisone. She is startign new agents now. In the meantime I a tyrig to get rheum notes to carlos enrique eour record 09/01/2025 Other specified abdominal hernia without obstruction or gangrene (ICD-10 - K45.8) She ad diastasis oin CT in apst year but I alos think she has ahernia. Doing womethignnwith it shauna not be easy-explained topt0- but I wll contact her surgeon to review my finding 09/01/2025 Separation of muscle (nontraumatic), unspecified site (ICD-10 - M62.00) see above 09/01/2025 Body mass index [BMI] 39.0-39.9, adult (ICD-10 - Z68.39) see above. Weight not helping her joints or mood 09/01/2025 Polymyalgia rheumatica (ICD-10 - M35.3) 09/01/2025 Other Urine obtained and transferred to labeled spec tube, awaiting lab bead picker. Plan Of Treatment Medication Medication Name Sig Start Date Stop Date Notes predniSONE 5 MG 1 tablet with food o r milk Orally Once a day 2025 Budesonide-Formoterol Fumarate 160-4.5 MCG/ACT 2 puffs Inhalation twice a day for 30 days 09/03/2025 Treatment Notes Assessment Notes Encounter for screening for COVID-19 Cov id screening is negative. Discussed in detail with [...] you are having concerning symptoms for COVID-19. Morbid (severe) obesity due to excess calories She asked afew times abotu getting on weight loss shots. We alos discussed alst time in. Wiht her past bariatric surgery and later bowel surgery I really want her to review this with batroiatric surgeon. her appt is in October and I told her I just do not want to risk causing mroe stimach or bowel problems. Her general surgeon agfreed and had referred her to bariatrics alise Dysuria broiguth uoa s she w a sleaving, Will gte U/A and culture Bariatric surgery status as note abive. Clearly weight not where it shouelbe. Dysthymic disorder Chrinic and she is h olding libe pretty well. Nicotine dependence, cigaret molly, uncomplicated Trying to cut back more. Support today Chronic obstructive pulmonar y disease, unspecified We nee to swithgc to beneric rpoduct-sen t. Continue 2 pouffs twice a day as control pretty good! Essential (primary) hypertension Repeat BP in rnage-no chnage Chronic pain syndrome I had been going w ith PMR as ESR up but rheum apoparently thinks fibromyalgia which wa sour previoius workign dx. And also RA accoiuntingnfor the ESR. Plus not good response tpo low dose prednisone. She is startign new agents now. In the meantime I a tyrig to get rheum notes to updta eour record Other specified abdominal he rnia without obstruction or gangrene She ad diastasis oin CT in apst year but I alos think she has ahernia. Doing womethignnwith it shauna not be easy-explained topt0- but I wll contact her surgeon to review my finding Separation of muscle (nontra umatic), unspecified site see above Body mass index [BMI] 39.0-39.9, adult s ee above. Weight not helping her joints or mood Other Urine obtained and t ransferred to labeled spec tube, awaiting lab bead picker. Pending Test Test Name Order Date URINALYSIS WITH REFLEX MICROSCOPIC 09/01 Next Appt Details Follow Up: 3 Months, Reason: AB: BP Provider Name:Hbuert Henry, 11/24/2025 10:20:00 AM, [address] [place] [address], [place], [address], Progress Notes * Sandra MARTINSDOB:1965 ( 60 yo F)Acc No.[id number]:09/01/2025 Progress Notes Patient: Sandra KURTZ Provider: eDbra Henry MD :1965 A ge:60 Y S ex:Female Date:09/01/2025 Address:[address] [place], [place] [id number] Subjective: * Chief Complaints: * 1 . Office, 2 month f/u. 2. HUDDLE: PCV 20; COVID vax; Shingrix. 3. VISIT:L PMR; weight; mood; BP; constipation. 4. Symptom screening by [facility] staff pre entrance to clinic. * HPI: G eneral: Symptom Screen: - Fever in the last 1 week? Patient denies - New or worsening cough in the last 1 week? Patient denies. - Contact will known COVID exposure in last 5 days? Patient denies -new rash within last 3 weeks? Patient denies - Have you received the COVID-19 vaccine? yes - Have you received COVID-19 booster? no - Have you been tested positive for COVID -19 in the last 7 days? If so where and why? no KW: Pt presenting to clinic for follow up. Reports pain and the current med regimen is not effective. Prescribed two new meds from neurologist, has not started them yet bc she wanted to discuss with you first, states they dx her with rheumatoid arthritis. AB: HUDDLE: PCV 20; COVID vax; Shingrix, VISIT:L PMR; weight; mood; BP; constipation, Here with male partner HER AGENDA: Ball in RUQ, lower right ribs. Come sout with cough, tight pants and when walks maryjane and when talks a lot. Surgeon a few motnhs said scar tissue (female surgeon at [facility]). Says CT said scar tisuse.? CT . [facility] no longer cieveriung Suymbicort and dicyclomine. is not sure the latter did much but she needs the business controller. Holoidays: SS appt 09/13 and hopes to see the kids Smoking: Joel and tried patch yesterday. Now at 5 a day but with patch no craving. No MJ Last wine a month ago. At the end of [facility] visit she brought up that: Saw rheumat 0 main and dx RA and fibro. Was placed on hydroxyxloroquine 200 bid-just picked up yesterday. Jaoint shurt but not swollen. also given Flexeril 5 at . Had US at [place] yesterday ordered by rheum. No results yet. also [place] [facility] Mood flat but she says mildly depressed only. D epression Screening: PHQ-9 L ittle interest or pleasure in doing things?More than half the days F eeling down, depressed, or hopeless M ore than half the days T rouble falling or staying asleep, or sleeping too much N early every day F eeling tired or having little energy S everal days P oor appetite or overeating N early every day F eeling bad about yourself-or that you are a failure or have let yourself or your family down N ot at all T rouble concentrating on things, such as reading the newspaper or watching television S everal days M oving or speaking so slowly that other people could have noticed. Or the opposite being so fidgety or restless that you have been moving around a lot more than usual N ot at all T houghts that you would be better off , or of hurting yourself in some way N ot at all T otal Score 1 2 I ntepretation M oderate Depression * ROS: G ENERAL: Constitutional d enies, f fariha, chills, Pt is able to walk 1 flight of stairs without stopping. R espiratory d enies, s hortness of breath, wheezing. C ardiovascular d enies, c hest pain/pressure, syncope. N o acute C/P no acute SOB, No problem with urine, No heartburn or abdominal pain. Endorses being able to climb one fight of stairs without stopping due to SOB, Mood: stable, appetite: good, sleeping well. Denies new skin rashes. * Medical History: H ypertension, Hypothyroid, Migraine, Depression, Lumbar spine issues, Tobacco use, 04/2017: [facility] Admission for Chest pain. : W/U negative. Hydroxyzine/ HCTZ stopped due to low MG/K+, 04/2017: RLL nodule noted on chest CT: repeat Chest CT needed in 2018, Bariatric Surgery: 2009. Initial weight loss: 150 lbs, Dorsalgia, unspecified, Headache, Paresthesia of skin, Encounter for screening for malignant neoplasm of colon, Pain in left foot, Alcoholic Hepatitis, + ascites 11/06/17, cirrhosis, Other ascites, Iron deficiency anemia, unspecified, Post-traumatic stress disorder, chronic, Vitamin B12 deficiency anemia, unspecified, Paresthesia of skin, Body mass index [BMI] 39.0-39.9, adult, Body mass index [BMI] 39.0-39.9, adult, Body mass index [BMI] 36.0-36.9, adult. 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 L MP 0 10/28/2022; states she hasn't had a period in awhile. G YN 0 10/28/2022 ; here for lower belly pain; rates as a 10 on the pAIn scale.? L ast pap smear date D ate 0 -2022 A bnormal pap smear N ever. L ast mammogram date Date 0 -2021 Normal S TD n one. B irth control n one. A bnormal menstruations N o. D ysmenorrhea Y es. H ysterectomy n o. I nfertility 0 10/28/2022; DENIES. M enopause 0 10/28/2022: Pt c/o sweating and hot and cold flashes. * OB History: T otal pregnancies 7 . T otal live births of SIDS a 3 months. M iscarriage(s) 2 -tubal pregnancies. P regnancy # 1: N . P regnancy # 2: N . P regnancy # 3 N . P regnancy # 4: N . P regnancy # 5: N . B reast biopsy n one. * Surgical History: h ernia [id number]-[id number]-21pzdio ago , tubal libation 20 years ago , gastric by- pass in [place] 2009, L4-L5 fusion and nonsegmental fixation 11/22/15. * Hospitalization/Major Diagno stic Procedure: g astric bypass 2009, [facility] ER anxiety 2013, [facility], back surgery 11/2015, [facility] Chest pain x 3 days 05/02/17, Rectal reading 10/08, [facility] inpt + UTI, hypoalbuminemia, alcoholic hepatitis 11/06. * Family History: M other: alive 79 yrs, diagnosed with Unspecified nonpsychotic mental disorder following organic brain damage, Diabetes mellitus type II, Ischemic stroke, Cancer, disseminated, Hypertension. Father: 67 yrs, ? cardiac related. 1 brother(s) , 1 sister(s) . 1 son(s) , 3 daughter(s) . . Family history breast cancer. * Social History: H ousing/living arrangements: 01/2025: Living in own apartment, [address]/11/2023- no changes still lives in her own xlneimazj18/07/2023 same10/08/20: Continues in her apt11/14/19 Living in her apartment.1/22/18 Living in her appartment.Prior History.06/02/2017;Client is in her own appt [address] [facility], MAPrevious appt05/2015-was living in [facility] x 5 months, had to move on, now at [facility] x 1 week//prior living in [place], [place]09/2015 Continues in apt on [facility] [facility]. - [place], shared bath. all women08/2016: [facility] [address] [facility] [place]. S Reid Screening Entered Date 0 02/03/2025 How is this screening being conducted today? I n-person What is your housing situation today? I have housing Think about the place you live. Do you have problems with any of the following? (Check all that apply) N one of the above Within the past 12 months, you worried that your food would run out before you got money to buy more N ever true Within the past 12 months, the food you bought just didn't last and you didn't have enough money to get more N ever true In the past 12 months, has lack of transportation kept you from medical appointments, meetings, work or from getting things needed for daily living? (Check all that apply) N o In the past 12 months has the electric, gas, oil, or water company threatened to shut off services in your home? N o Think about the place you live. Do you have access to internet/wi-fi when you need it? N o Do you want help finding or keeping work or a job? I do not need or want help T obacco Use Assessment MU Annual Tobacco assessment completed 0 02/03/2025 Tobacco assessment completed 0 02/03/2025 What age did you start smoking? 1 3 What is your current smoking status? c urrent smoker How often do you smoke? e very day How many cigarettes a day do you smoke? 5 or less Are you interested in quitting? t hinking about quitting Patient counseled on the dangers of tobacco use and advised to quit: 0 02/03/2025 D rug use Date of history: 0 02/03/2025 Denies O piate Use Hx Ever taken opiates N o 01/2025: denies12/11/2023 A lcohol Use: 01/2025: Denies intake12/11/2023-drinks beer and sometimes hard liqour, gfopxioj02/07/2023 saME10/08/20: Will drink 2 beer 1 x a week.11/14/19 Denies.12/08/18: Only drinks on the weekends mostly. Wine or beer 1 or 2 cup of wine.10/12/17 Denies.Prior History.05/2017 ETOH 3x week- 1/2 Vodka each time- since 04/2017 slowed. Detox 3 months ago. No hx W/D seizures/DTs. Last drink: Thursday05/30/17 4-5 drinks.07/03/2015 4:04:12 PM > socially only11/02/2015 9:49:27 AM > social drinker, No Hx DUI, blackouts, withdrawl seizures.. S exual Orientation Heterosexual 0 02/03/2025 S exual Health history Sexual History completed on: 0 02/03/2025 Identifies as currently having sexual contact Y es Identifies sexual preference as M en Number of sexual partners in the last year 1 If one partner in the last year, length of relationship g reater than one year Number of lifetime sexual partners o ne to three Last tested for STIs T ested greater than one year ago Offered STI testing today 0 02/03/2025 Hx of being treated for syphillis? N o Contraception/ STI Counseling 0 12/11/2023 tubal ligation, counseled on safer sexual practices to prevent STI- time clock mechanic barrier use recommended Have you had more than 5 sexual partners in life N o Have you engaged in sex under the influence of alcohol or drugs?Yes Have you exchanged sex for money/drugs/housing N o Do you have recurrent symptoms that you are concerned with N o Do you know if your partner has ever had or is being treated for an STI N o Are there concerns or questions regarding your sexual health that you would like to discuss? N o M ental Health: 01/2025: Not engaged with MH services at time of visit12/11/2023- no mh tx at this time02/10 no mh tx at this time10/08/20:Would NOT like to see some at this time.11/14/19 Not engaged with anyone.05/04/19 Not engaged with anyone at the moment.Prior History.10/12/17 Engaged with Niki Valles.Prior History.07/03/2015 4:03:43 PM > , MH provider: [facility] 9:47:42 AM > Continues to see Kinjal Valles08/2016: Has not seen Kinjal Valles or Lurdes recently. S yessy Last grade completed 1 06/2015 Reading/Writing competent L radha greer Hx: > Not working. I ncome: 05/2015-[facility]. L egal issues/Incarcerations: 06/2015 denies11/02/2015 9:48:03 AM > Recently incarcerated at [facility]; released 10 years ago, wrapped up. P CP/last visit: PCP-Jose/Timmy, last visit-last month/Destinee samayoa 11/02/2015 9:47:32 AM > PCP is [facility]. T ransportation: 10/28/2022 takes bus05/2015-, Pt is comfortable navigating bus system. M arital Status: . N ext of Kin/Emerg. Contact & Community Supports: 10/28/2022 SAME10/08/20: Next of kin:, Salima Greenfield daughter [phone]. C lazaro: daughter(s)-3, son(s)-1. R elimeganon: [employer]. T BI screening/Head injury Hx: Patient can not recall any times in which he/she experienced sig blow to the head (fall, blast, collision). H igh End Utilizer Of ER services Is patient high end utilizer of ER services? N o S moking status: about 6 sigs a day New sexual parter? NO Substance abuse status: NO. * Medications: T aking Hydroxychloroquine Sulfate 200 MG Tablet 1 tab Orally twice a day , Taking Cyclobenzaprine HCl 5 MG Tablet 1 tablet at bedtime as needed Orally Once a day , Taking Incruse Ellipta 62.5 MCG (0.0625 MG)/INH POWDER 1 INH INHALED EVERY 24 HOURS , Notes to Pharmacist: *Please review and pick correct strength-formulation from [employer]pan options. If intended option is not shown, discontinue and re-order from Quick Search*, Taking Mirtazapine 7.5 MG Tablet 2 tab(s) orally once a day (at bedtime) , Taking Vitamin D3 25 MCG Tablet 1 tab(s) orally once a day , Taking busPIRone HCl 10 MG Tablet 1 tab(s) orally 2 times a day , Taking Atorvastatin Calcium 40 MG Tablet 1 tab(s) orally once a day , Taking Ferrous Sulfate 325 (65 Fe) MG Tablet 1 tab(s) orally once a day , Taking LORazepam 1 MG Tablet 1 tab(s) orally every 6 hours , Taking Levothyroxine Sodium 137 MCG Tablet 1 tab(s) orally once a day , Taking traMADol HCl 50 MG Tablet 1 tablet as needed Orally every 8 hrs , Taking MiraLax 17 GM/SCOOP Powder as directed Orally daily one scoop in 8 oz water or juice, Taking predniSONE 5 MG Tablet 1 tablet with food or milk Orally Once a day , Taking Losartan Potassium 100 mg Tablet TAKE 1 TABLET BY MOUTH ONCE DAILY , Taking Naproxen 500 mg Tablet TAKE 1 TABLET BY MOUTH two (2) times a day NEEDED FOR PAIN ON CHEST , Taking Solifenacin Succinate 10 mg Tablet TAKE 1 TABLET BY MOUTH ONCE DAILY , Taking Potassium Chloride ER 10 mEq Tablet Extended Release TAKE 1 TABLET BY MOUTH two (2) times a day , Taking Nicotine 14 MG/24HR Patch 24 Hour APPLY 1 PATCH ONCE DAILY FOR 28 DAYS , Taking Fexofenadine HCl 180 mg Tablet TAKE 1 TABLET BY MOUTH ONCE DAILY AT BEDTIME NEEDED FOR ALLERGY , Taking Budesonide-Formoterol Fumarate 160-4.5 MCG/ACT Aerosol INHALE 2 PUFFS BY MOUTH INTO THE lungs two (2) times a day. rinse mouth and throat after use. MAY USE 2 PUFFS NEEDED EVERY 4 HOURS FOR SHORTNESS OF BREATH. maximum 12puffs/24hrs , Taking Folic Acid 1 mg Tablet TAKE 1 TABLET BY MOUTH ONCE DAILY , Taking Pregabalin 200 mg Capsule TAKE 1 CAPSULE BY MOUTH two (2) times a day , Taking Ulises-Gest Antacid 500 MG Tablet Chewable CHEW AND SWALLOW 1 TABLET BY MOUTH ONCE DAILY NEEDED Orally Once a day , Discontinued Acetaminophen 325 MG Tablet 2 tab(s) orally every 6 hours , Discontinued Vitamin B-12 1000 MCG Tablet 1 tab(s) orally once a day , Discontinued ALLBEE PLUS VITAMIN B COMPLEX WITH C AND FOLIC ACID TABLET 1 TAB(S) ORALLY ONCE A DAY , Notes to Pharmacist: *Please review for potential replacement for e-prescription and drug interaction check*, Discontinued QUEtiapine Fumarate 50 mg Tablet TAKE 1 TABLET BY MOUTH 3 (THREE) TIMES A DAY , Discontinued Furosemide 20 mg Tablet TAKE 1 TABLET BY MOUTH ONCE DAILY , Medication List reviewed and reconciled with the patient * Allergies: c loNIDine: insomnia/nightmares - Side Effects. Objective: * Vitals: B P: 112/80, Ht: 65, Wt: 237.6, BMI:39.53, HR: 88, Oxygen sat %: 98, Temp: 97.4, First BP: 146/80, Second BP: 112/80. * Physical Examination: B P recheck by me In NAD chest clear no nodes a bd overweight and in addition to midline bulge with valsalva she was a 2-2.5 cm so=ft subq nodule that develops and can ebe reduced to thr right of the midline above the umbilicus (superior to) no edema no swollen joints. Assessment: * Assessment: 1. M orbid (severe) obesity due to excess calories - E66.01 (Primary) 2 . E ncounter for screening for COVID-19 - Z11.52 3 . D ysuria - R30.0 ?4. B ariatric surgery status - Z98.84 S pecify :2009 N otes :Cristina en Y surgery 5 . D ysthymic disorder - F34.1 6 . N icotine dependence, cigarettes, uncomplicated - F17.210 7 . C hronic obstructive pulmonary disease, unspecified - J44.9 8 . E ssential (primary) hypertension - I10 9 . C hronic pain syndrome - G89.4 1 0. O ther specified abdominal hernia without obstruction or gangrene - K45.8 1 1. S eparation of muscle (nontraumatic), unspecified site - M62.00 1 2. B mason mass index [BMI] 39.0-39.9, adult - Z68.39 13. P olymyalgia rheumatica - M35.3 Plan: * Treatment: 2. E ncounter for screening for COVID-19 Notes:Covid screening is negative. Discussed in detail with [...] you are having concerning symptoms for COVID-19. 3. D ysuria L AB: URINALYSIS WITH REFLEX MICROSCOPIC (Collection Date & Time - 09/01/2025 12:29 PM) L AB: CULTURE URINE (Collection Date & Time - 09/01/2025 12:29 PM) M ixed beatriz (see U/A) Value Reference Range C ulture, Urine 10,000-49,000 CFU/mL Mixed urogenital fl ora, no uropathogens present. Suggest repeat specimen if clinically indicated. - * Hubert Henry 09/03/2025 01 :29:38 PM EST >Not a gtreat sample but does not qing lakshmi UTI. Please tell her Notes: nitin gilmore s she wa sleaving, Will gte U/A and culture??4.?Bariatric surgery status? Notes: as note abive. Clearly weight not where it shouelbe. ??5.?Dysthymic disorder? Notes: Chrinic and she is holding libe pretty well.??6.?Nicotine dependence, cigarettes, uncomplicated? Notes: Trying to cut back more. Support today??7.?Chronic obstructive pulmonary disease, unspecified? Start Budesonide-Formoterol Fumarate Aerosol, 160-4.5 MCG/ACT, 2 puffs, Inhalation, twice a day replaces btanded Symbicort, 30 days, 1, Refills 5.?? Notes: We nee to swithgc to beneric rpoduct-sent. Continue 2 pouffs twice a day as control pretty good!??8.?Essential (primary) hypertension? Notes: Repeat BP in rnage-no chnage??9.?Chronic pain syndrome? Notes: I had been going with PMR as ESR up but rheum apoparently thinks fibromyalgia which wa sour previoius workign dx. And also RA accoiuntingnfor the ESR. Plus not good response tpo low dose prednisone. She is startign new agents now. In the meantime I a tyrig to get rheum notes to updta eour record?? 10.?Other specified abdominal hernia without obstruction or gangrene? Notes: She ad diastasis oin CT in apst year but I alos think she has ahernia. Doing womethignnwith it shauna not be easy-explained topt0- but I wll contact her surgeon to review my finding??11.?Separation of muscle (nontraumatic), unspecified site? Notes: see above??12.?Body mass index [BMI] 39.0-39.9, adult? Notes: see above. Weight not helping her joints or mood??13.?Polymyalgia rheumatica? Stop predniSONE Tablet, 5 MG, 1 tablet with food or milk, Orally, Once a day.?? 14.?Others? Notes: Urine obtained and transferred to labeled spec tube, awaiting lab bead picker.?? * Procedure Codes: 9 9000 SPECIMEN HANDLING * Follow Up: 3 Months (Reason: AB: BP) * Images: Billing Information: * Visit Code: * Procedure Codes: 76102 SPECIMEN HANDLING. Care Plan Details* * Sign off status: Completed true * Provider: Debra Henry MD Date: 11/02/2024 Generated for [facility] wing/Hamilton/Marksmitting on: 11/06/2024 04:50 PM EST History and Physical Notes * HPI (History of Present Illness) Category Sub-Category Detail Notes Category Not es Depression Screening PHQ-9 Little inte rest or pleasure in doing things: More than half the days Feeling down, depressed, or hopeless: Mo re than half the days Trouble falling or staying asleep, or sl eeping too much: Nearly every day Feeling tired or having little energy: S everal days Poor appetite or overeating: Nearly ever y day Feeling bad about yourself-o r that you are a failure or have let yourself or your family down: Not at all Trouble concentrating on thi ngs, such as reading the newspaper or watching television: Several days Moving or speaking so slowly that other people could have noticed. Or the opposite being so fidgety or restless that you have been moving around a lot more than usual: Not at all Thoughts that you would be b soraida off , or of hurting yourself in some way: Not at all Total Score: 12 Intepretation: Moderate Depression Physical Examination Category Sub-Category Detail Notes Section Note s BP recheck by me In NAD chest clear no nodes abd overweight and in addition to midline bulge with valsalva she was a 2-2.5 cm so=ft subq nodule that develops and can ebe reduced to thr right of the midline above the umbilicus (superior to) no edema no swollen joints
[2025-09-05 13:19] VITALS: BP 106/70; PULSE 74; O2SAT 97; BMI 39.8
--- NOTE | 2025-09-05 13:19 | MHC.OFFVIS ---
Vital Signs 09/05/25 13:19 Height 5 ft 5 in Weight 239 lb 6 oz BMI 39.8 BP 106/70 Blood Pressure Location Lt brachial Position Sitting Pulse 74 Pulse Source Pulse Oximeter Pulse Oximetry (%) 97 Oxygen Delivery Method Room Air Intake Visit Reasons: INP-Sleep apnea Intake Note: Patient presents NOZZLEMAN MAN. Hard time falling asleep/staying asleep. Witnessed snoring/apnea/gasping. Goes to bed at 10pm wakes up at 9am. Wakes up 2-3times a night. Naps 30min-1hr. Migraine that go away through out the day. No history of sleep studies. Allergies clonidine Adverse Reaction (Mild, Verified 09/05/25 13:25) insomnia/nightmares HPI Comments Details: 60 year old female is referred to us by her PCP, Noa Louis, for an evaluation of MAN. She has difficulty falling asleep and staying asleep. She has multiples arousals due to snoring and gasping for air. She screams and yells in her sleep per her partner.She has morning headaches daily last for 1hour to 2 hours, takes lyrica and helps. She has fibromyalgia joint pain in shoulders, back, knees, ankles, and her wrist, and keeps her up at night, Lyrica pregablin 200mg po BID improves the discomfort. She uses her albuterol rescue inhaler as needed for asthma. Denies acid reflux, bp is managed with medication. RLS symptoms bilaterally in hands and feet with sensitivity to heat, paresthesias, she walks bare foot on the cold floor, as this helps to alleviate the discomfort. Mood fluctuates, and it can be irritable. Memory is stable. Denies any other abnormal sleep behaviors, hallucinations, parasomnias. She is a smoker, 6 cigarettes daily and trying to taper, started nicotine patch 3 days ago, buspirone 10mg po BID, Denies MJ use and edibles.FH is + stroke mother 69, denies h/o seizures, bells palsy, dementia. REPLACED BY [facility] Medical History Muscle spasm Muscle weakness Nausea Cough Shortness of breath Excessive thirst Internal bleeding Night sweats Weakness Fatigue Swollen leg Surgical History Hx of abdominal surgery Family History Mother Diabetes Social History Alcohol intake: current Alcohol intake frequency: holidays/special occasions only Patient Tobacco Use Status: Current everyday Tobacco user Tobacco use type: Cigarette e-Cigarette/Vaping Use: Never Used Physical Exam Vital Signs: Last Vital Signs Pulse 74 09/05/25 13:19 BP 106/70 09/05/25 13:19 Pulse Ox 97 09/05/25 13:19 Oxygen Delivery Method Room Air 09/05/25 13:19 BMI result Body Mass Index 39.8 Const General: cooperative and no acute distress Nutritional Appearance: obese Orientation/consciousness: patient oriented x3 HEENT Face and sinus: Yes face symmetric Teeth and gingiva: other (mallampti score is 3) Eyes Pupils: Equal, round and reactive pupils present Neck Neck: Yes full ROM Resp Effort & Inspection: normal respiratory effort and able to speak in complete sentences Neuro Other: oral mild tremor of lips mild bilateral upper extremity tremors with hands stretched out FFM past pointing and intention tremor r>l Gait is antalgic General: patient oriented x3 Cranial nerves: Yes Equal, round and reactive pupils present, Yes Normal accommodation reflex present, Yes Normal facial strength present, Yes Ability to bilaterally rotate head present and Yes Ability to bilaterally elevate shoulders present Cognition (Neuro): normal cognition Gait exam (Neuro): Antalgic gait present (bilateral hip pain) Motor exam (neuro): 5/5 motor strength present throughout and Normal motor muscle tone present throughout Deep tendon reflexes (DTR's): Right triceps reflex intensity grade: 2+, Left triceps reflex intensity grade: 2+, Rt Biceps (C5, C6): 2+, Left biceps reflex intensity grade: 2+, Right brachioradialis reflex intensity grade: 2+, Left brachioradialis reflex intensity grade: 2+, Right patellar reflex intensity grade: 2+ and Left patellar reflex intensity grade: 2+ Psych Appearance: grossly normal Mental Status: mental status grossly normal Thought process: Normal thought process present Results Reviewed Results Reviewed: labs reviewed with pt hyperkalemia she reduced kcl in take [id number] po BID to qhs daily in 07/2025. labs will defer to PCP- RF + BUN elevated S/E of Hydroxychloroquine Plaquenil last week she started first dose in Aug 2025. Assessment & Plan Assessment & Plan (1) Excessive daytime sleepiness: Code(s): G47.19 - Other hypersomnia Category: Medical (2) Peripheral neuropathy: Code(s): G62.9 - Polyneuropathy, unspecified Category: Medical Qualifiers: Peripheral neuropathy type: polyneuropathy, other Qualified Code(s): G62.89 - Other specified polyneuropathies (3) RLS (restless legs syndrome): Code(s): G25.81 - Restless legs syndrome Category: Medical Plan Excessive daytime sleepiness HST r/o MAN Labs reviewed with pt today. Chronic fatigue will f/u with additional labs once started on cpap, and r/o deficiencies. 3 month f/u Orders: Orders RT home sleep study Today G47.19 - Other hypersomnia Patient Instructions: magnesium 200mg daily at bedtime to improve quality of sleep. start B12 1000mcg Will review HST with pt over the phone and start cpap therapy if she has MAN Airfit nasal pillows freedom category universal airfit [id number] medium mask, she is a nose breather. Request records [facility], Dr. Henry PCP. RF factor 21 Uric acid 7.1 Hyperkalemia 5.4 Coding Level of Care Code New Pt Level 4 (69564) Diagnoses Excessive daytime sleepiness G47.19 Other polyneuropathy G62.89 Peripheral neuropathy type: polyneuropathy, other RLS (restless legs syndrome) G25.81 Sleep Questionnaire Difficulty falling asleep: Yes Difficulty staying asleep?: Yes Number of arousals: 4-5 Snoring: Yes Witnessed apneas: Yes Gasping arousals: Yes Nocturia: Yes GERD: Yes Vivid dreams: Yes Acting out dreams: Yes Abnormal behavior in sleep: Yes (screaming / yelling) Abnormal movements in sleep: No Morning headaches: Yes Excessive daytime sleepiness: Yes Daytime naps: Yes (15 min 2-3 times a day) Restless legs: Yes Hallucinations: No Sleep paralysis: Yes Drop attacks: No Sleep Study: No CPAP: No
--- OUTSIDE RECORDS SUMMARY | 2025-09-05 16:51 | XMS_ITS | Patient Health Record ---
Author Organization [facility] Address [address] [place] [address] Care Team Providers Care Signaling Design Engineer Name Role Phone Hubert Henry Primary Care Provider [facility], Nursing Unavailable [phone] Lev Mcelroy Unavailable [phone] Migration, Provider Unavailable Unavailable Allergies Allergen (clinical [...] Reviewed date:05/25/2025 02:44:18 PM Interpretation:negative Performing Lab:NL2, [facility] [id number] Lisa Malagon, Director - [address] [place] [address] Notes/Report: NON-FASTING CLINICAL INFORMATION: None g iven LMP: NONE GIVEN PREV. PAP: NONE GIVEN PREV. BX: NONE GIVEN SOURCE: None given STATEMENT OF ADEQUACY: Satisfactory for evaluation. Endocervical/transforma tion zone component present. INTERPRETATION/RESULT: Cytology Results: Negative for intraepithelial lesion or malignancy. COMMENT: This Pap test has been evaluated with the ThinPrep(R) Imaging System. RECEIVING ASSOCIATE STORE: CHANDRAKANT ROBERTS(ASCP) CT Screening Location: [facility] [address], [place] [address]. CLIA: [id number] Slide preparation performed at: [facility], [address] [place] [id number] CLIA: [id number] COMMENT EXPLANATORY NOTE: The Pap is a [...] test SurePath(TM) specimens have been determined by [facility]. The modifications have not been cleared or approved by the FDA. This assay has been validated pursuant to the CLIA regulations and is used for clinical purposes. For additional information, please refer to https://education.[employer]/faq/FAQ 154 (This link is being provided for information/ educational purposes only.) CULTURE URINE Reviewed date:09/05/2025 10:49:05 AM Interpretation:Mixed beatriz (see U/A) Performing Lab: Notes/Report: Culture, Urine 10,000-49,000 CFU/mL Mixed urogenital beatriz, no uropathogens present. Suggest repeat specimen if clinically indicated. URINALYSIS WITH REFLEX MICRO SCOPIC Reviewed date:04/11/2025 05:42:41 PM Interpretation:Negative Performing Lab: Notes/Report: Specific [place] Urine 1.018 1.003-1.030 pH, Urine 5.5 5.0-8.0 [...] 02:00:45 PM Interpretation:leukocytes Performing Lab: Notes/Report: Specific [place] Urine 1.014 1.003-1.030 pH, Urine 5.5 5.0-8.0 [...] <7.0 U/mL INTERPRETATION: Negative Test performed at [facility], [facility] [place] [place] [address] Yudith Geiger MD, PhD - Inspector Timers CT Abdomen Pelvis WO Cont Reviewed date:06/22/2025 05:48:19 PM Interpretation:Abnormal Performing Lab: Notes/Report: Abnormal MG MAMMO DIGITAL SCREENING W SARA BILAT Reviewed date:07/27/2025 05:20:50 PM Interpretation:Normal Performing Lab: Notes/Report: See Note [facility], a member of [facility] CLINICAL: 60 years old, Female, routine annual [...] year. Mammo Location: [facility], [address] [place] [address], [address], . -------- FINAL REPORT -------- Dictated By: Sivakumar Alatorre Dictated Date: 07/27/2025 10:04 ET Assigned Physician: Sivakumar Alatorre Reviewed and Electronically Signed By: Sivakumar Alatorre Signed Date: 07/27/2025 11:03 ET Workstation ID: [id number] Transcribed By: Self Edit Transcribed Date: 07/27/2025 10:05 ET URINALYSIS WITH REFLEX MICRO SCOPIC Reviewed date:09/02/2025 03:41:03 PM Interpretation:10 WBC; 40squamous Performing Lab: Notes/Report: Specific [place] Urine 1.011 1.003-1.030 pH, Urine 6.0 5.0-8.0 pH Leukocytes, Urine Moderate Negative Nitrite, Urine Negative Negative Protein, Urine Negative <=Trace mg/dL Glucose, Urine Negative Negative mg/dL Ketones, Urine Negative Negative mg/dL Urobilinogen, Urine 0.2 0.2-1.0 mg/dL Bilirubin, Urine Negative Negative Blood, Urine Negative Negative RBC, Urine 4.0 0-4 /HPF WBC, Urine 10.0 0-4 /HPF Squamous Epithelial, Urine 40 0-60 /LPF Bacteria, Urine Few Negative /HPF Hyaline Casts, Urine 3.0 0-3 /LPF Reason For Referral Reason [facility], [place], [place] P: [phone] F: [phone] Knee high compression stockings, 2 pairs Diagnosis 1 Lymphedema, not else where classified (I89.0) Referral Organization [facility] Referring Provider First Name Hubert Referring Provider Last Name Carl Referring Provider Speciality Internal M edicine Referred Provider Maury Sullivan [facility] [employer] General Notes Lay Carter 07/2025 12:50:42 PM > faxed to [facility] Referral Priority Routine Reason [facility] - XL 8/day #240 5 rf Diagnosis 1 Functional urinary i ncontinence (R39.81) Referral Organization [facility] Referring Provider First Name Hubert Referring Provider Last Name Carl Referring Provider Speciality Internal M edicine Referred Organization [facility] Referred Provider James and Ayala, [facility] [employer] Referred Address [address] [facility] [address],[place], [place],[address], General Notes Marlene Lang 04/14/2025 09:47:04 AM > rx and referral faxed to Rickey dye Katelyn 04/26/2025 11:00:16 AM > pt reports they are getting picked up today Referral Priority Routine Reason [facility] , [address] [place] [address] [place] P: [phone] F: [phone] Patient over 1/2 year past long ICU stay and has persistent genralized pain, ESR 74, rest of lab eval is really OK. Could this be PMR (I have not tried steroids yet). She is going for fibromayalgia. I also owonder if it is a yvuu1GWT syndrome. Referral Organization [facility] Referring Provider First Name Hubert Referring Provider Last Name Carl Referring Provider Speciality Internal M edicine Referred Provider Specialty Rheumatology General Notes Lay Carter 09:38:57 AM > Faxed to [facility] Rhe[facility] Referral Priority Routine Referral Appointment Date 05/03/2026 Reason [employer], [address] [facility] [place] [place] P: [phone] F: Provide #1 motorized scooter Referral Organization [facility] Referring Provider First Name Hubert Referring Provider Last Name Carl Referring Provider Speciality Internal M edicine Referred Organization [facility] Referred Provider [employer] [facility] [employer] Referred Address [address],[place], [place],[address], Referred Provider Specialty Other suppli er General Notes Lay Carter 01:16:11 PM > Faxed to [facility] K[facility]n 06/07/2025 10:48:15 AM >per [facility] they are waiting for an addendum to PT medical necessity from PT Raul hart [place] 06/27/2025 02:49:03 PM > Called and spoke with [facility], still awaiting on addendum from PT, Rhett Herrera [employer] requested this info from PT on 06/01, 06/09, and 06/19/25, and again today 06/27/25 via email. On 06/19/25, PT, Rhett Herrera stated he was still working on it. Referral Priority Routine Reason [facility] are, [address] [place] [facility] P: [phone] F: [phone] for [facility] for Home OT - deconditioned and recent fall Referral Organization [facility] Referring Provider First Name Hubert Referring Provider [...] Duration) Notes Start Date End Date Status Incruse Ellipta 62.5 MCG (0.0625 MG)/INH 1 INH INHALED EVERY 24 HOURS for 28 DAYS *Please review and pick correct strength-formulat ion from [employer] options. If intended option is not shown, discontinue and re-order from Quick Search* 05/17/2025 Active Budesonide-Formoterol Fumarate 160-4.5 MCG/ACT INHALE 2 PUFFS BY MOUTH INTO THE lungs two (2) times a day. rinse mouth and throat after use. MAY USE 2 PUFFS NEEDED EVERY 4 HOURS FOR SHORTNESS OF BREATH. maximum 12puffs/24hrs for 30 Active Levothyroxine Sodium 137 MCG 1 tab(s) orally once a day for 30 days Active Fexofenadine HCl 180 mg TAKE 1 TABLET BY MOUTH ONCE DAILY AT BEDTIME NEEDED FOR ALLERGY for 90 Active Nicotine 14 MG/24HR APPLY 1 PATCH ONCE DAILY FOR 28 DAYS for 28 Active Ferrous Sulfate 325 (65 Fe) MG 1 tab(s) orally once a day for 90 days Active Potassium Chloride ER 10 mEq TAKE 1 TABLET BY MOUTH two (2) times a day for 30 Active Solifenacin Succinate 10 mg TAKE 1 TABLET BY MOUTH ONCE DAILY for 30 Active Atorvastatin Calcium 40 MG 1 tab(s) orally once a day for 30 days Active Naproxen 500 mg TAKE 1 TABLET BY MOUTH two (2) times a day NEEDED FOR PAIN ON CHEST for 14 Active busPIRone HCl 10 MG 1 tab(s) orally 2 times a day Active Losartan Potassium 100 mg TAKE 1 TABLET BY MOUTH ONCE DAILY for 30 Active Vitamin D3 25 MCG 1 tab(s) orally once a day Active Klarissa-Gest Antacid 500 MG CHEW AND SWALLOW 1 TABLET BY MOUTH ONCE DAILY NEEDED Orally Once a day for 90 days Active Mirtazapine 7.5 MG 2 tab(s) orally once a day (at bedtime) Active MiraLax 17 GM/SCOOP as directed Orally daily for 28 days one scoop in 8 oz water or juice 06/27/2025 Active Pregabalin 200 mg TAKE 1 CAPSULE BY MOUTH two (2) times a day for 30 08/29/2025 Active traMADol HCl 50 MG 1 tablet as needed Orally every 8 hrs for 7 days 06/27/2025 Active Folic Acid 1 mg TAKE 1 TABLET BY MOUTH ONCE DAILY for 90 Active Cyclobenzaprine HCl 5 MG 1 tablet at bedtime as needed Orally Once a day Active Hydroxychloroquine Sulfate 200 MG 1 tab Orally twice a day Active LORazepam 1 MG 1 tab(s) orally every 6 hours for 30 days 03/20/2025 Active Budesonide-Formoterol Fumarate 160-4.5 MCG/ACT 2 puffs Inhalation twice a day for 30 days replaces btanded Symbicort 09/03/2025 Active Immunizations Vaccine Route Administration Date Status Comme nts Influenza IM Intramuscular 06/14/2015 Administered Hepatitis A IM Intramuscular 09/25/2015 Administered Hepatitis A Unknown 05/21/2016 Administered Hepatitis B (20 or more) IM Intramuscular 02/08/2018 Administered nd [id number] PPSV 23 IM Intramuscular 07/06/2018 Administered Influenza IM Intramuscular 07/21/2018 Administered Tdap IM Intramuscular 12/08/2018 Administered ND 49 [id number] Influenza IM Intramuscular 11/14/2019 Administered ND 49 [id number] [employer] Covid-19 Vaccine Administration - First Dose (Single Dose 30MCG/0.3ML 1ST) Unknown 02/01/2021 Administered Hepatitis B (20 or more) IM Intramuscular 02/20/2021 Administered [employer] Covid-19 Vaccine Administration-Secon d Dose (Single Dose 30MCG/0.3ML 2ND) IM Intramuscular 02/22/2021 Administered [facility] Influenza IM Intramuscular 08/28/2021 Administered hepatitis [...] Status W/U Status Risk Notes Problem Hypothyroidism (27452213) Hypothyroidism, unspecified (E03.9) Active confirmed Problem Morbid obesity (disorder) (944572930) Morbid (severe) obesity due to excess calories (E66.01) Active confirmed Problem Alcohol induced disorder co-occurrent and due to alcohol dependence (disorder) (275645254839064) Alcohol dependence with other alcohol-induced disorder (F10.288) Active confirmed Problem Tobacco user (168795657) Nicotine dependence, cigarettes, uncomplicated (F17.210) Active confirmed Problem Nicotine dependence (65423576) Nicotine dependence, cigarettes, with other nicotine-induced disorders (F17.218) Active confirmed Problem Mild recurrent major depression (24602350) Major depressive disorder, recurrent, mild (F33.0) Active confirmed Problem Dysthymia (20499608) Dysthymic disorder (F34.1) Active confirmed Problem New daily persistent headache (666254119856666) New daily persistent headache (NDPH) (G44.52) Active confirmed Problem 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) Active confirmed Problem Chronic pain syndrome (484966827) Chronic pain syndrome (G89.4) Active confirmed Problem Essential hypertension (11697642) Essential (primary) hypertension (I10) Active confirmed Problem Long QT syndrome (8740085) Long QT syndrome (I45.81) Active confirmed Problem Raynaud's disease (320582594) Raynaud's syndrome without gangrene (I73.00) Active confirmed Problem Peripheral vascular disease (831325655) Peripheral vascular disease, unspecified (I73.9) Active confirmed Problem Lymphedema (345972401) Lymphedema, not elsewhere classified (I89.0) Active confirmed Problem Seasonal allergic rhinitis (238046111) Other seasonal allergic rhinitis (J30.2) Active confirmed Problem Chronic sinusitis (38223500) Chronic sinusitis, unspecified (J32.9) Active confirmed Problem Chronic obstructive pulmonary disease (72257819) Chronic obstructive pulmonary disease, unspecified (J44.9) Active confirmed Problem Gastritis (4115077) Other gastritis without bleeding (K29.60) Active confirmed Problem Hernia of abdominal cavity (disorder) (40342959) Other specified abdominal hernia without obstruction or gangrene (K45.8) Active confirmed Problem Alcohol-induced chronic pancreatitis (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) 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) Active confirmed Problem Chronic ulcer of skin (58224587) Non-pressure chronic ulcer of skin of other sites limited to breakdown of skin (L98.491) Active confirmed Problem Polymyalgia rheumatica (91558704) Polymyalgia rheumatica (M35.3) Active confirmed Problem Sciatica (59544533) Lumbago with sciatica, right side (M54.41) Active confirmed Problem Sciatica (68248488) Lumbago with sciatica, left side (M54.42) Active confirmed Problem Diastasis of muscle (787226850) Separation of muscle (nontraumatic), unspecified site (M62.00) Active confirmed Problem Menopause (699952083) Menopausal and female climacteric states (N95.1) Active confirmed Problem Functional urinary incontinence (886423106) Functional urinary incontinence (R39.81) Active confirmed Problem History of bariatric surgical procedure (686649422) Bariatric surgery status (Z98.84) Active confirmed Cristina en Y surgery Problem Acute pancreatitis (131933929) Acute pancreatitis without necrosis or infection, unspecified (K85.90) 024 Active confirmed Problem Body mass index 35.00 to 39.99 (625137849015362) Body mass index [BMI] 39.0-39.9, adult (Z68.39) Active confirmed Problem Obese class II (614920995834972) Body mass index [BMI] 35.0-35.9, adult (Z68.35) Inactive confirmed Problem Body mass index 40+ - severely obese (368673252) Body mass index [BMI] 40.0-44.9, adult (Z68.41) Inactive confirmed Vital Signs Temperature 97.4 degrees Fahrenheit 09/01/2025 Blood pressure diastolic 80 09/01/2025 Oximetry 98 09/01/2025 Height 65 in 09/01/2025 Blood pressure systolic 112 09/01/2025 Weight 237.6 lbs 09/01/2025 BMI 39.53 kg/m2 09/01/2025 Encounters Encounter Location Date Provider Diagnosis [address] [address] 06/03/2025 Provider Migration Chronic obstructive pulmonary disease, unspecified J44.9 ; Other seasonal allergic rhinitis J30.2 and Other chest pain R07.[address] [address] 02/03/2025 Hubert Henry Encounter for screening for COVID-19 Z11.52 ; Acute pancreatitis without necrosis or infection, unspecified K85.90 ; Hypothyroidism, unspecified E03.9 ; Major depressive disorder, recurrent, mild F33.0 ; Alcohol dependence with other alcohol-induced disorder F10.288 ; Essential (primary) hypertension I10 and Non-pressure chronic ulcer of skin of other sites limited to breakdown of skin L98.[address] [address] 03/17/2025 Hubert Henry Encounter for screening for COVID-19 Z11.52 ; Polymyalgia rheumatica M35.3 ; Raynaud's syndrome without gangrene I73.00 ; Unspecified abdominal pain R10.9 ; Nicotine dependence, cigarettes, uncomplicated F17.210 ; Essential (primary) hypertension I10 ; Chronic pain syndrome G89.4 ; Major depressive disorder, recurrent, mild F33.0 and Non-pressure chronic ulcer of skin of other sites limited to breakdown of skin L98.[address] [address] 03/21/2025 Nursing [facility] Encounter for screening, unspecified Z13.[address] [address] 04/11/2025 Nursing [facility] Encounter for screening, unspecified Z13.[address] [address] 05/05/2025 Hubert Henry Encounter for screening for COVID-19 Z11.52 ; Polymyalgia rheumatica M35.3 ; Functional urinary incontinence R39.81 ; Telogen effluvium L65.0 ; 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 ; Essential (primary) hypertension I10 and Lymphedema, not elsewhere classified I89.[address] [address] 05/17/2025 Lev Mcelroy Encounter for screening for [...] COVID-19 Z11.52 and Other chest pain R07.89 [facility] [address] [place] [address] [place] [id number] 06/16/2025 Hubert Henry Encounter for screening for COVID-19 Z11.52 ; Polymyalgia rheumatica M35.3 ; Lymphedema, not elsewhere classified I89.0 ; Functional urinary incontinence R39.81 ; Bariatric surgery status Z98.84 and Other specified abdominal hernia without obstruction or gangrene K45.[address] [address] 06/27/2025 Hubert Henry Encounter for screening for [...] site M62.00 and Drug induced constipation K59.[address] [address] 09/01/2025 Hubert Henry Encounter for screening for [...] 39.0-39.9, adult Z68.39 and Polymyalgia rheumatica M35.[address] [address] 11/09/2024 Hubert Henry [address] [address] 11/23/2024 Hubert Henry [address] [address] 01/19/2025 Hubert Henry [address] [address] 01/25/2025 Hubert Henry [address] [address] 02/17/2025 Hubert Henry Chronic obstructive pulmonary disease, unspecified J44.[address] [address] 02/24/2025 Hubert Henry [address] [address] 03/09/2025 Hubert Henry [address] [place] [address] 03/19/2025 Hubert Henry [address] [address] 03/21/2025 Hubert Henry [address] [address] 03/22/2025 Hubert Henry [address] [address] 03/22/2025 Hubert Henry [address] [address] 03/29/2025 Hubert Henry Hypothyroidism, unspecified E03.[address] [address] 04/03/2025 Hubert Henry [address] [address] 04/06/2025 Hubert Henry [address] [address] 04/10/2025 Hubert Henry [address] [address] 04/12/2025 Hubert Henry [address] [address] 04/14/2025 Hubert Henry [address] [address] 04/26/2025 Hubert Henry [address] [address] 05/05/2025 Hubert Henry Functional urinary incontinence R39.[address] [address] 05/09/2025 Hubert Henry [address] [address] 05/19/2025 Hubert Henry [address] [address] 06/07/2025 Hubert Henry [address] [address] 06/12/2025 Hubert Henry Other chest pain R07.[address] [address] 08/28/2025 Hubert Henry Assessments Encounter Date Diagnosis [...] transferred to labeled spec tube, awaiting lab vegetable picker. 02/03/2025 Acute pancreatitis without necrosis or infection, unspecified (ICD-10 - K85.90) miriam went through a lot and is stable and much improved. waiting to get home care going with PT MAy need new [employer]SEL[employer] application. She syas she has enough meds (list reviewed) for now. 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 See scanned document. VIS reviewed. No contraindications for vaccine administration. Infuenza vaccine given per protocol. No adverse outcome with administration of vaccine. 09/01/2025 Dysuria (ICD-10 - R30.0) broiguth uoa s she wa sleaving, Will gte U/A and culture 02/03/2025 Major depressive disorder, recurrent, mild (ICD-10 [...] breast (ICD-10 - Z12.31) agree to mammo 09/01/2025 Bariatric surgery status (ICD-10 - Z98.84) Cristina en Y surgery as note abive. Clearly weight not where it shouelbe. 06/03/2025 Other seasonal allergic rhinitis (ICD-10 - [...] diastasis by imaging. expaoined this to eher 09/01/2025 Dysthymic disorder (ICD-10 - F34.1) Chrinic and she is holding libe pretty well. 02/03/2025 Essential (primary) hypertension (ICD-10 - I10) [...] (now abd wll thao serrano was told sergio freed woitueusebia dhel.. Wiht her multiple surgeries stimach and intestine I am not sure zeprbound would be safe and she is booke dto see her bariatric surgeonin 2 months, i advised her to discuss with him 06/27/2025 Dysthymic disorder (ICD-10 - F34.1) stable at present. BH f/u 09/01/2025 Nicotine dependence, cigarettes, uncomplicated (ICD-10 - F17.210) Trying to cut back more. Support today 02/03/2025 Non-pressure chronic ulcer of skin of [...] - I10) BP improvedp-no change in rx 09/01/2025 Chronic obstructive pulmonary disease, unspecified (ICD-10 - J44.9) We nee to swithgc to beneric rpoduct-sent. Continue 2 pouffs twice a day as control pretty good! 06/03/2025 Other chest pain (ICD-10 - R07.89) [...] past bypass and woder if BGLP-1 isunsfae 09/01/2025 Essential (primary) hypertension (ICD-10 - I10) Repeat BP in rnage-no chnage 03/17/2025 Non-pressure chronic ulcer of skin of other sites limited to breakdown of skin (ICD-10 - L98.491) healed 06/27/2025 Lymphedema, not elsewhere classified (ICD-10 - I89.0) much imporved 09/01/2025 Chronic pain syndrome (ICD-10 - G89.4) I had been going with PMR as ESR up but rheum apoparently thinks fibromyalgia which wa sour previoius workign dx. And also RA accoiuntingnfor the ESR. Plus not good response tpo low dose prednisone. She is startign new agents now. In the meantime I a tyrig to get rheum notes to [facility] record 06/27/2025 Separation of muscle (nontraumatic), unspecified site (ICD-10 - M62.00) see above 09/01/2025 Other specified abdominal hernia without obstruction or gangrene (ICD-10 - K45.8) She ad diastasis oin CT in apst year but I alos think she has ahernia. Doing womethignnwith it shauna not be easy-explained topt0- but I wll contact her surgeon to review my finding 06/27/2025 Drug induced constipation (ICD-10 - K59.03) Lots of stool on CT. Start mioralax 09/01/2025 Separation of muscle (nontraumatic), unspecified site (ICD-10 - M62.00) see above 09/01/2025 Body mass index [BMI] 39.0-39.9, adult (ICD-10 - Z68.39) see above. Weight not helping her joints or mood 09/01/2025 Polymyalgia rheumatica (ICD-10 - M35.3) 02/03/2025 Other 03/17/2025 Other Unable to draw labs today, pt agrees to hydrate and return to clinic on Thursday for repeat draw. Urine obtained and transferred to labeled spec tube, awaiting lab vegetable picker. 05/05/2025 Other 05/17/2025 Other 06/16/2025 Other She had been told rpeviously that [email or web address] vendor was waiting for addendium to her PT note and it wa to go to them diretly, not rhough us. asked nurse to go iver that with her again 17 moinute call 06/27/2025 Other 09/01/2025 Other Urine obtained and transferred to labeled spec tube, awaiting lab vegetable picker. Plan Of Treatment Pending Test Test Name Order Date ROBBIN SPENCER Urine - [facility] 09/25/2015 X ray [...] US Bladder 05/29/2021 US Gall Bladder 10/08/2020 URINALYSIS WITH REFLEX MICROSCOPIC 09/01 Next Appt Details Provider Name:Hubert Carl, 11/24/2025 10:20:00 AM, [address] [place] [address], [place], [address], Insurance Providers Payer Name Payer Address Payer Phone Subscriber Number Group Number Insured Name Patient Relationship to Insured Coverage Start Date Coverage End Date [facility] [place] [facility] [address] [place] [phone] [id number] Miriam Martins Self - patient is the insured 6 [place] Standard [address] [place] [address] [id number] Miriam Martins Self - patient is the insured 5 Medications Administered Medication Instructions Date of Administration Dosage Notes Ketorolac 07/06/2018 30 mg Ketorolac 08/04/2018 30 mg No NDC on vial Ketorolac 08/04/2018 30 mg No NDC on vial Medical (General) History Medical History History ICD Code hypertension hypothyroid migraine depression lumbar spine issues tobacco use 04/2017: [facility] Admission for Ch est pain. : W/U [...] adult Z 68.39 Body mass index [BMI] 36.0-36.9, adult Z 68.36 Surgical History Surgery Date(Month/Year) L4-L5 fusion and nonsegmental fixation gastric by-pass in [place] 2009 tubal libation 20 years ago hernia [id number] ago Hospitalization History Reason Date(Month/Year) [facility] inpt + UTI, hypoalbuminemia, alcohol ic hepatitis 11/06 Rectal reading 10/08 [facility] Chest pain x 3 days 05/02/17 [facility], back surgery 11/2015 [facility] ER anxiety 2014 gastric bypass 2009
--- OUTSIDE RECORDS SUMMARY | 2025-09-05 16:51 | XMS_ITS | Encounter Summary ---
Author Organization [facility] Address [address] [place] [address] Care Team Providers Care Mail Delivery Supervisor Name Role Phone Hubert Henry MD Primary Care Provider [phone] Encounter Details Date Type Department Care Team (Late Contact Info) Description 03/17/[address] [facility] - Main Lab [address] [facility] [place] [address] Hubert Henry MD [address] [place] [address] Frequency of micturition Social History Tobacco Use [...] AM EST Office Visit Bariatric Surgery - [place] [address] [place] [address] Marianna Szymanski MD [address] [place] [phone] documented as of this encounter Procedures [...] reflex microscopic (03/17/2025 12:00 AM EDT) Specific [place] Urine 1.014 1.003 - 1.030 LAB URINALYSIS - AUTOMATED METHOD 03/17/2025 8:35 PM [facility] pH, Urine 5.5 5.0 - 8.0 pH LAB URINALYSIS - AUTOMATED METHOD 03/17/2025 8:35 PM [facility] Leukocytes, Urine Moderate(A) Negative LAB URINALYSIS - AUTOMATED METHOD 03/17/2025 8:35 PM [facility] Nitrite, Urine Negative Negative LAB URINALYSIS - AUTOMATED METHOD 03/17/2025 8:35 PM [facility] Protein, Urine Negative <=Trace mg/dL LAB URINALYSIS - AUTOMATED METHOD 03/17/2025 8:35 PM [facility] Glucose, Urine Negative Negative mg/dL LAB URINALYSIS - AUTOMATED METHOD 03/17/2025 8:35 PM [facility] Ketones, Urine Negative Negative mg/dL LAB URINALYSIS - AUTOMATED METHOD 03/17/2025 8:35 PM EDT [facility] Urobilinogen , Urine 0.2 0.2 - 1.0 mg/dL LAB URINALYSIS - AUTOMATED METHOD 03/17/2025 8:35 PM [facility] Bilirubin, Urine Negative Negative LAB URINALYSIS - AUTOMATED METHOD 03/17/2025 8:35 PM [facility] Blood, Urine Negative Negative LAB URINALYSIS - AUTOMATED METHOD 03/17/2025 8:35 PM [facility] RBC, Urine 4.7(H) 0 - 4 /HPF LAB URINALYSIS - AUTOMATED METHOD 03/17/2025 8:35 PM [facility] WBC, Urine 24.3(H) 0 - 4 /HPF LAB URINALYSIS - AUTOMATED METHOD 03/17/2025 8:35 PM [facility] Squamous Epithelial, Urine 15 0 - 60 /LPF LAB URINALYSIS - AUTOMATED METHOD 03/17/2025 8:35 PM [facility] Bacteria, Urine Many(A) Negative /HPF LAB URINALYSIS - AUTOMATED METHOD 03/17/2025 8:35 PM [facility] Hyaline Casts, Urine 0.4 0 - 3 /LPF LAB URINALYSIS - AUTOMATED METHOD 03/17/2025 8:35 PM [facility] Urine Urine specimen obtained by clean catch procedure / Unknown 03/17/2025 03/17/2025 7:18 PM EDT us Hubert Henry MD LAB URINE ORDERABLES Final Re sult [facility] [address] [place] [address], [place] [phone] * (ABNORMAL) Culture urine (03/17/2025 12:00 AM [...] OR DERABLES Final Result Performing Organization Address City/State/[facility] Co de Phone Number [facility] [address] [place] [address], documented in this encounter Visit Diagnoses Diagnosis Frequency of micturition Urinary frequency documented in this encounter Care Teams Mail Delivery Supervisor Relationship Specialty Start Date End Date Hubert Henry MD [address] [place] [address] PCP - General Internal Medicine 06/23/22 documented as of this encounter
--- OUTSIDE RECORDS SUMMARY | 2025-09-05 16:51 | XMS_ITS | Encounter Summary ---
Author Organization [facility] Address [address] [place] [address] Care Team Providers Care Paste Thinner Name Role Phone Hubert Henry MD Primary Care Provider [phone] Encounter Details Date Type Department Care Team (Late st Contact Info) Description 04/11/2025 Lab Requisition [facility] - Main Lab [address] [facility] [place] [address] Hubert Henry MD [address] [place] [address] Dysuria Social History Tobacco Use Types Packs/Day [...] AM EST Office Visit Bariatric Surgery - [place] [address] [place] [address] Marianna Szymanski MD [address] [place] [phone] documented as of this encounter Procedures Procedure Name Priority Date/Time Associated Diagnosis Comments URINALYSIS WITH REFLEX MICROSCOPIC Routine 04/11/2025 4:30 PM EDT Dysuria URINALYSIS WITH REFLEX MICROSCOPIC Routine 04/11/2025 4:30 PM EDT Dysuria CULTURE URINE Routine 04/11/2025 4:30 PM EDT Dysuria documented in this encounter Results * Urinalysis with reflex microscopic (04/11/2025 4:30 PM EDT) Specific [place] Urine 1.018 1.003 - 1.030 LAB URINALYSIS - AUTOMATED METHOD 04/11/2025 4:48 PM [facility] pH, Urine 5.5 5.0 - 8.0 pH LAB URINALYSIS - AUTOMATED METHOD 04/11/2025 4:48 PM [facility] Leukocytes, Urine Negative Negative LAB URINALYSIS - AUTOMATED METHOD 04/11/2025 4:48 PM [facility] Nitrite, Urine Negative Negative LAB URINALYSIS - AUTOMATED METHOD 04/11/2025 4:48 PM [facility] Protein, Urine Negative <=Trace mg/dL LAB URINALYSIS - AUTOMATED METHOD 04/11/2025 4:48 PM [facility] Glucose, Urine Negative Negative mg/dL LAB URINALYSIS - AUTOMATED METHOD 04/11/2025 4:48 PM [facility] Ketones, Urine Negative Negative mg/dL LAB URINALYSIS - AUTOMATED METHOD 04/11/2025 4:48 PM [facility] Urobilinogen, Urine 0.2 0.2 - 1.0 mg/dL LAB URINALYSIS - AUTOMATED METHOD 04/11/2025 4:48 PM EDT [facility] Bilirubin, Urine Negative Negative LAB URINALYSIS - AUTOMATED METHOD 04/11/2025 4:48 PM EDT [facility] Blood, Urine Negative Negative LAB URINALYSIS - AUTOMATED METHOD 04/11/2025 4:48 PM EDT [facility] Urine Urine specimen obtained by clean catch procedure / Unknown Non-blood Collection / Unknown 04/11/2025 4:30 PM EDT 04/11/2025 4:32 PM EDT us Hubert Henry MD LAB URINE ORDERABLES Final Re sult Performing Organization Address City/[facility]/ZIP Co de Phone Number [facility] [address] [place] [address], [place] [phone] * Culture urine (04/11/2025 4:30 PM EDT) Culture, Urine 10,000-49,000 CFU/mL Mixed bacterial morphotypes present suggestive of possible contamination during collection. Suggest appropriate recollection if clinically indicated. 04/12/2025 3:24 PM EDT [facility] Urine Urine specimen obtained by clean catch procedure / Unknown Non-blood Collection / Unknown 04/11/2025 4:30 PM EDT 04/11/2025 4:32 PM EDT Hubert Henry MD LAB MICROBIOLOGY - GENERAL OR DERABLES Edited Result - Final Performing Organization Address City/[facility]/ZIP Co de Phone Number [facility] [address] [place] [address], [place] [phone] documented in this encounter Visit Diagnoses Diagnosis Dysuria documented in this encounter Care Teams Paste Thinner Relationship Specialty Start Date End Date Hubert Henry MD [address] [place], [place] PCP - General Internal Medicine 06/23/22 documented as of this encounter
--- OUTSIDE RECORDS SUMMARY | 2025-09-05 16:51 | XMS_ITS | Encounter Summary ---
Author Organization [facility] Address [address] [place] [address] Care Team Providers Care Computer Equipment Repairer Name Role Phone Hubert Henry MD Primary Care Provider [phone] Encounter Details Date Type Department Care Team ([facility] Contact Info) Description 03/21/2025 Lab Requisition [facility] - Main Lab [address] [facility] [address] [place] [address] Hubert Henry MD [address] [place], [place] Polymyalgia rheumatica (CMS/HCC V24) Social History [...] Upcoming Encounters Date Type Department Care Team ([facility] Contact Info) Description 11/07/2025 9:00 AM EST Office Visit Bariatric Surgery - [place] [address] [place] [address] Marianna Szymanski MD [address] [place] [phone] documented as of this encounter Procedures Procedure Name Priority Date/Time Associated Diagnosis Comments CENTROMERE ANTIBODIES Routine 03/21/2025 9:41 AM EDT Polymyalgia rheumatica ([facility] V24) RICCO IFA WITH TITER AND PATTERN Routine 03/21/2025 9:41 AM EDT Polymyalgia rheumatica ([facility] V24) CBC WITH AUTO DIFFERENTIAL Routine 03/21/2025 9:41 AM EDT Polymyalgia rheumatica ([facility] V24) SEDIMENTATION RATE Routine 03/21/2025 9: 41 AM EDT Polymyalgia rheumatica ([facility] V24) CBC AND DIFFERENTIAL Routine 03/21/2025 9:41 AM EDT Polymyalgia rheumatica ([facility] V24) C-REACTIVE PROTEIN Routine 03/21/2025 9: 41 AM EDT Polymyalgia rheumatica ([facility] V24) documented in this encounter Results * (ABNORMAL) CBC auto differential (03/21/2025 9:41 AM EDT) WBC 5.9 4.8 - 10.8 K/mcL LAB HEMETOLOGY METHOD 03/21/2025 5:25 PM EDT [facility] RBC 4.70 3.80 - 4.80 M/mcL LAB HEMETOLOGY METHOD 03/21/2025 5:25 PM EDT [facility] Hemoglobin 13.1 11.5 - 16.0 g/dL LAB HEMETOLOGY METHOD 03/21/2025 5:25 PM EDT [facility] Hematocrit 41.9 35.0 - 47.0 % LAB HEMETOLOGY METHOD 03/21/2025 5:25 PM EDT [facility] MCV 88.6 79.0 - 98.0 FL LAB HEMETOLOGY METHOD 03/21/2025 5:25 PM EDT [facility] MCH 27.7 27.0 - 32.0 pcg LAB HEMETOLOGY METHOD 03/21/2025 5:25 PM EDT [facility] MCHC 31.3(L) 32.0 - 37.0 g/dL LAB HEMETOLOGY METHOD 03/21/2025 5:25 PM EDT [facility] RDW 13.1 11.0 - 15.0 % LAB [facility]OLOGY [facility] 290 130 - 400 K/mcL LAB HEMETOLOGY METHOD 03/21/2025 5:25 PM EDT [facility] MPV 12.5(H) 7.0 - 11.0 FL LAB HEMETOLOGY METHOD [facility] NRBC 0.0 <1.0 % LAB HEMETOLOGY METHOD [facility] NRBC Absolute 0.00 <0.10 K/mcL LAB HEMETOLOGY METHOD 03/21/2025 5:25 PM EDT [facility] Neutrophils Relative 30.8 % LAB HEMETOLOGY METHOD 03/21/2025 5:25 PM EDT [facility] Lymphocytes Relative 56.1 % LAB HEMETOLOGY METHOD 03/21/2025 5:25 PM EDT [facility] Monocytes Relative 9.8 % LAB HEMETOLOGY METHOD 03/21/2025 5:25 PM EDT [facility] Eosinophils Relative 2.4 % LAB HEMETOLOGY METHOD 03/21/2025 5:25 PM EDT [facility] Basophils Relative 0.7 % LAB HEMETOLOGY METHOD 03/21/2025 5:25 PM EDT [facility] Immature Granulocytes Relative 0.2 % LAB HEMETOLOGY METHOD 03/21/2025 5:25 PM EDT [facility] Neutrophils Absolute 1.82 1.50 - 7.00 K/mcL LAB HEMETOLOGY METHOD 03/21/2025 5:25 PM EDT [facility] Lymphocytes Absolute 3.31 1.00 - 5.00 K/mcL LAB HEMETOLOGY METHOD 03/21/2025 5:25 PM EDT [facility] Monocytes Absolute 0.58 0.20 - 1.00 K/mcL LAB HEMETOLOGY METHOD 03/21/2025 5:25 PM EDT [facility] Eosinophils Absolute 0.14 0.00 - 0.50 K/mcL LAB HEMETOLOGY METHOD 03/21/2025 5:25 PM EDT [facility] Basophils Absolute 0.04 0.00 - 0.20 K/mcL LAB HEMETOLOGY METHOD 03/21/2025 5:25 PM EDT [facility] Immature Granulocytes Absolute 0.01 0.00 - 0.03 K/mcL LAB HEMETOLOGY METHOD 03/21/2025 5:25 PM EDT [facility] Blood Venous blood specimen / Unknown 03/21/2025 9:41 AM EDT 03/21/2025 5:13 PM EDT us Hubert Henry MD LAB BLOOD ORDERABLES Final Re sult [facility] [address] [place] [address], * RICCO IFA with titer and pattern (03/21/2025 9:41 AM EDT) RICCO Negative Negative 03/23/2025 11:41 AM EDT [facility] Blood Venous blood specimen / Unknown 03/21/2025 9:41 AM EDT 03/21/2025 5:13 PM EDT Hubert Henry MD LAB BLOOD ORDERABLES Final Re sult [facility]) [facility] [address] [place] [address], [place] [phone] * Centromere antibodies (03/21/2025 9:41 AM EDT) Pathologist [facility] Centromere Antibody 0.7 <7.0 U/mL 03/27/2025 11:34 AM EDT [facility] Comment: INTERPRETATION: Negative Test performed at [facility], [address], [place] [address] Yudith Geiger MD, PhD - [employer] Blood Venous blood specimen / Unknown 03/21/2025 9:41 AM EDT 03/21/2025 5:13 PM EDT Hubert Henry MD LAB BLOOD ORDERABLES Final Re sult Performing Organization Address [facility]/ZIP Co de Phone Number [facility] [address] [place] [address] * C-reactive protein (03/21/2025 9:41 AM EDT) [facility] C-Reactive Protein <0.29 <=0.50 mg/dL LAB CHEMISTRY METHOD 03/21/2025 6:25 PM EDT [facility] Blood Venous blood specimen / Unknown 03/21/2025 9:41 AM EDT 03/21/2025 5:13 PM EDT Hubert Henry MD LAB BLOOD ORDERABLES Final Re sult [facility] [address] [place] [address], [place] [phone] * (ABNORMAL) Sedimentation rate (03/21/2025 9:41 AM EDT) Sed Rate 74(H) 0 - 30 mm/hr LAB HEMETOLOGY METHOD 03/21/2025 5:47 PM EDT [facility] Blood Venous blood specimen / Unknown 03/21/2025 9:41 AM EDT 03/21/2025 5:13 PM EDT Hubert Henry MD LAB BLOOD ORDERABLES Final Re sult Performing Organization Address [facility] Co de Phone Number [facility] [address] [place] [address], documented in this encounter Visit Diagnoses Diagnosis Polymyalgia rheumatica (CMS/HCC V24) Polymyalgia rheumatica documented in this encounter Care Teams Computer Equipment Repairer Relationship Specialty Start Date End Date Hubert Henry MD [address] [place], [place] PCP - General Internal Medicine 06/23/22 documented as of this encounter
--- OUTSIDE RECORDS SUMMARY | 2025-09-05 16:51 | XMS_ITS | Clinical Summary ---
Author Organization [facility] Address [address] [place] [address] Phone Care Team Providers Care Roofing Machine Tender Name Role Phone Hubert Henry MD Primary Care Provider [phone] Allergies Active Allergy Reactions Criticality Noted Date [...] Encounters Date Type Department Care Team Description 09/01/2025 Lab Requisition [facility] - Main Lab [address] [facility] [place] [phone] Hubert Henry MD Dysuria 07/27/2025 9:28 AM EST - 07/27/2025 11:59 PM EST Hospital Encounter [facility] [address] [place] [phone] Encounter for screening mammogram for malignant neoplasm of breast Discharge Disposition: Home or Self Care 07/26/2025 4:00 PM EST Office Visit Bariatric Surgery - [place] [address] [phone] Yecenia Haynes MD S/P gastric bypass (Primary Dx); Hx of iron deficiency; Left lower quadrant abdominal pain; Diastasis recti; Constipation, unspecified constipation type 06/20/2025 Telephone Bariatric Surgery - [place] 175 [facility] [address] [place] [address] Yecenia Haynes MD 06/19/2025 Telephone Gastroenterology - [place] 175 [facility] 175 [facility] [address] [place] [phone] Kevin Guardado MD 06/16/2025 9:29 AM EDT - 06/16/2025 11:59 PM EDT Hospital Encounter [facility] CT Scan [address] [place] [phone] Incisional hernia, without obstruction or gangrene Discharge Disposition: Home or Self Care from Last 3 Months Immunizations Immunization Administration Dates Next Due Hepatitis B (Sdvryjk-P-Uhdwq , Recombivax HB-Adult) 19yo and older 11/11/2022,02/20/2021 Influenza Quadrivalent, 0.5m l, preservative free (Fluarix; FluLaval; Fluzone) ages 6mo and older (Afluria) 3yo and older 08/28/2023,11/11/2022 Influenza trivalent, with pr eservative (Fluzone; Afluria) 6mo and older 08/28/2021 Surgical History Surgery Date Site/Laterality Comments HERNIA REPAIR PROCEDURE: HISTORICAL HERNIA REPAIR/ING OTHER SURGICAL HISTORY PROCEDURE: OR [place] ECTOPIC ABDL GASTRIC BYPASS 09/21/2007 PROCEDURE: [...] EST Office Visit Bariatric Surgery - [address] [place] [address] Marianna Szymanski MD [address] [place] [phone] Health Maintenance Due Date Last Done Comments Colorectal Cancer Screening: Colonoscopy 1965 Drug Screen 1965 Naloxone Order 1964 Opioid Substance Agreement 1964 Pain Assessment 1964 Cervical Cancer Screening: Pap Smear 1985 [...] Diagnosis Comments URINALYSIS WITH REFLEX MICROSCOPIC Routine 09/01/2025 12:29 PM EST Dysuria URINALYSIS WITH REFLEX MICROSCOPIC Routine 09/01/2025 12:29 PM EST Dysuria CULTURE URINE Routine 09/01/2025 12:29 PM EST Dysuria MG MAMMO DIGITAL SCREENING W SANJAY BILAT Routine 07/27/2025 9:59 AM EST Encounter for screening mammogram for malignant neoplasm of breast CT ABDOMEN PELVIS WO CONTRAST Routine 06/16/2025 9:38 AM EDT Incisional hernia, without obstruction or gangrene COMPREHENSIVE METABOLIC PANEL Routine 03/10/2025 11:30 AM EDT S/P gastric bypass from Last 3 Months or Most Recently Relevant to Health Maintenance Results * (ABNORMAL) Urinalysis with reflex microscopic (09/01/2025 12:29 PM EST) Specific [place] Urine 1.011 1.003 - 1.030 LAB URINALYSIS - AUTOMATED METHOD 09/01/2025 7:05 PM [facility] pH, Urine 6.0 5.0 - 8.0 pH LAB URINALYSIS - AUTOMATED METHOD 09/01/2025 7:05 PM [facility] Leukocytes, Urine Moderate(A) Negative LAB URINALYSIS - AUTOMATED METHOD 09/01/2025 7:05 PM [facility] Nitrite, Urine Negative Negative LAB URINALYSIS - AUTOMATED METHOD 09/01/2025 7:05 PM [facility] Protein, Urine Negative <=Trace mg/dL LAB URINALYSIS - AUTOMATED METHOD 09/01/2025 7:05 PM [facility] Glucose, Urine Negative Negative mg/dL LAB URINALYSIS - AUTOMATED METHOD 09/01/2025 7:05 PM [facility] Ketones, Urine Negative Negative mg/dL LAB URINALYSIS - AUTOMATED METHOD 09/01/2025 7:05 PM [facility] Urobilinogen , Urine 0.2 0.2 - 1.0 mg/dL LAB URINALYSIS - AUTOMATED METHOD 09/01/2025 7:05 PM [facility] Bilirubin, Urine Negative Negative LAB URINALYSIS - AUTOMATED METHOD 09/01/2025 7:05 PM [facility] Blood, Urine Negative Negative LAB URINALYSIS - AUTOMATED METHOD 09/01/2025 7:05 PM [facility] RBC, Urine 4.0 0 - 4 /HPF LAB URINALYSIS - AUTOMATED METHOD 09/01/2025 7:05 PM [facility] WBC, Urine 10.0(H) 0 - 4 /HPF LAB URINALYSIS - AUTOMATED METHOD 09/01/2025 7:05 PM [facility] Squamous Epithelial, Urine 40 0 - 60 /LPF LAB URINALYSIS - AUTOMATED METHOD 09/01/2025 7:05 PM [facility] Bacteria, Urine Few(A) Negative /HPF LAB URINALYSIS - AUTOMATED METHOD 09/01/2025 7:05 PM [facility] Hyaline Casts, Urine 3.0 0 - 3 /LPF LAB URINALYSIS - AUTOMATED METHOD 09/01/2025 7:05 PM [facility] Urine Urine specimen obtained by clean catch procedure / Unknown 09/01/2025 12:29 PM EST 09/01/2025 4:48 PM EST Hubert Henry MD LAB URINE ORDERABLES Final Re sult Performing Organization Address City/[facility]/ZIP Co de Phone Number [facility] [address] [place] [address], [place] [phone] * Culture urine (09/01/2025 12:29 PM EST) Culture, Urine 10,000-49,000 CFU/mL Mixed urogenital beatriz, no uropathogens present. Suggest repeat specimen if clinically indicated. 09/03/2025 10:07 AM [facility] Urine Urine specimen obtained by clean catch procedure / Unknown 09/01/2025 12:29 PM EST 09/01/2025 4:48 PM EST Hubert Henry MD LAB MICROBIOLOGY - GENERAL OR DERABLES Final Result Performing Organization Address [facility]/ZIP Co de Phone Number [facility] [address] [place] [address], [place] [phone] * MG Mammo Digital Screening w Sanjay bilat (07/27/2025 9:59 AM EST) Anatomical Region Laterality Modality Breast Bilateral Mammography 07/27/2025 10:0 4 AM EST Impressions 07/27/2025 11:03 AM EST Benign. BI-RADS CATEGORY: 2 - BENIGN RECOMMENDATION: Screening bilateral mammogram is recommended in 1 year. Mammo Location: [facility], [address] [place] [address], [phone], . -------- FINAL REPORT -------- Dictated By: Sivakumar Alatorre Dictated Date: 07/27/2025 10:04 ET Assigned Physician: Sivakumar Alatorre Reviewed and Electronically Signed By: Sivakumar Alatorre Signed Date: 07/27/2025 11:03 ET Workstation ID: [id number] Transcribed By: Self Edit Transcribed Date: 07/27/2025 [...] year. Mammo Location: [facility], [address] [place] [address], [address], . -------- FINAL REPORT -------- Dictated By: Sivakumar Alatorre Dictated Date: 07/27/2025 10:04 ET Assigned Physician: Sivakumar Alatorre Reviewed and Electronically Signed By: Sivakumar Alatorre Signed Date: 07/27/2025 11:03 ET Workstation ID: [id number] Transcribed By: Self Edit Transcribed Date: 07/27/2025 [...] Signed Date: 06/21/2025 12:07 ET Workstation ID: [id number] Transcribed By: Self Edit Transcribed Date: 06/21/2025 [...] small bowel resections of small bowel obstruction. Xsld-rb-Fkapobnr bypass. BONES AND SOFT TISSUES: Scattered degenerative [...] Signed Date: 06/21/2025 12:07 ET Workstation ID: [id number] Transcribed By: Self Edit Transcribed Date: 06/21/2025 12:02 ET us Yecenia Haynes MD IMG CT PROCEDURES Final Result * (ABNORMAL) Comprehensive metabolic panel (03/10/2025 11:30 AM EDT) Sodium 143 133 - 145 mmol/L LAB CHEMISTRY METHOD 03/10/2025 4:46 PM [facility] Potassium 4.0 3.5 - 5.5 mmol/L LAB CHEMISTRY METHOD 03/10/2025 4:46 PM [facility] Chloride 111(H) 96 - 110 mmol/L LAB CHEMISTRY METHOD 03/10/2025 4:46 PM [facility] CO2 24 21 - 32 mmol/L LAB CHEMISTRY METHOD 03/10/2025 4:46 PM [facility] Anion Gap 8 3 - 11 LAB CHEMISTRY METHOD 03/10/2025 4:46 PM [facility] Glucose 88 70 - 100 mg/dL LAB CHEMISTRY METHOD 03/10/2025 4:46 PM [facility] BUN 13 5 - 25 mg/dL LAB CHEMISTRY METHOD 03/10/2025 4:46 PM [facility] Creatinine 0.61 0.50 - 1.10 mg/dL LAB CHEMISTRY METHOD 03/10/2025 4:46 PM [facility] eGFR 102 >=60 mL/min/1. 73m2 LAB CHEMISTRY METHOD 03/10/2025 4:46 PM [facility] Comment:Calculation based on the Chronic Kidney Disease Epidemiology Collaboration (CKD-EPI) equation refit without adjustment for race. BUN/Creatinine Ratio 21.3 LAB CHEMISTRY METHOD 03/10/2025 4:46 PM [facility] Calcium 9.1 8.5 - 10.5 mg/dL LAB CHEMISTRY METHOD 03/10/2025 4:46 PM [facility] AST (SGOT) 22 10 - 42 unit/L LAB CHEMISTRY METHOD 03/10/2025 4:46 PM EDT [facility] ALT (SGPT) 23 10 - 60 unit/L LAB CHEMISTRY METHOD 03/10/2025 4:46 PM EDT [facility] Alkaline Phosphatase 104 42 - 121 unit/L LAB CHEMISTRY METHOD 03/10/2025 4:46 PM EDT [facility] Total Protein 7.3 6.0 - 8.0 g/dL LAB CHEMISTRY METHOD 03/10/2025 4:46 PM EDT [facility] Albumin 3.3 3.2 - 5.0 g/dL LAB CHEMISTRY METHOD 03/10/2025 4:46 PM EDT [facility] Total Bilirubin 0.3 0.0 - 1.4 mg/dL LAB CHEMISTRY METHOD 03/10/2025 4:46 PM EDT [facility] Blood Venous blood specimen / Unknown Venipuncture / Unknown 03/10/2025 11:30 AM EDT 03/10/2025 11:30 AM EDT Yecenia Haynes MD LAB BLOOD ORDERABLES nal Result [facility] [address] [place] [address], from Last 3 Months or Most Recently Relevant to Health Maintenance Insurance [facility] MEDIC[facility] Member Subscriber Plan / Payer (Ef fective 2016-Present) Name:SANDRA MARTINS Relation to Subscriber:Self Name:Sandra Martins Payer ID:[id number] Group ID:[id number] Type:Not on file Address: [place] [id number] [place] [id number] Advance Directives Documents on File Type Date Recorded 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
--- OUTSIDE RECORDS SUMMARY | 2025-09-05 16:51 | XMS_ITS | Encounter Summary ---
Author Organization [facility] Address [address] [place] [address] Care Team Providers Care Patient Day Coordinator Name Role Phone Hubert Henry MD Primary Care Provider [phone] Encounter Details Date Type Department Care Team (Late st Contact Info) Description 09/01/2025 Lab Requisition [facility] - Main Lab [address] [facility] [place] [address] Hubert Henry MD [address] [place] [address] Dysuria Social History Tobacco Use Types Packs/Day [...] AM EST Office Visit Bariatric Surgery - [place] [address] [place] [address] Marianna Szymanski MD [address] [place] [phone] documented as of this encounter Procedures Procedure Name Priority Date/Time Associated Diagnosis Comments URINALYSIS WITH REFLEX MICROSCOPIC Routine 09/01/2025 12:29 PM EST Dysuria URINALYSIS WITH REFLEX MICROSCOPIC Routine 09/01/2025 12:29 PM EST Dysuria CULTURE URINE Routine 09/01/2025 12:29 PM EST Dysuria documented in this encounter Results * (ABNORMAL) Urinalysis with reflex microscopic (09/01/2025 12:29 PM EST) Specific [place] Urine 1.011 1.003 - 1.030 LAB URINALYSIS - AUTOMATED METHOD 09/01/2025 7:05 PM [facility] pH, Urine 6.0 5.0 - 8.0 pH LAB URINALYSIS - AUTOMATED METHOD 09/01/2025 7:05 PM [facility] Leukocytes, Urine Moderate(A) Negative LAB URINALYSIS - AUTOMATED METHOD 09/01/2025 7:05 PM [facility] Nitrite, Urine Negative Negative LAB URINALYSIS - AUTOMATED METHOD 09/01/2025 7:05 PM [facility] Protein, Urine Negative <=Trace mg/dL LAB URINALYSIS - AUTOMATED METHOD 09/01/2025 7:05 PM [facility] Glucose, Urine Negative Negative mg/dL LAB URINALYSIS - AUTOMATED METHOD 09/01/2025 7:05 PM [facility] Ketones, Urine Negative Negative mg/dL LAB URINALYSIS - AUTOMATED METHOD 09/01/2025 7:05 PM [facility] Urobilinogen , Urine 0.2 0.2 - 1.0 mg/dL LAB URINALYSIS - AUTOMATED METHOD 09/01/2025 7:05 PM [facility] Bilirubin, Urine Negative Negative LAB URINALYSIS - AUTOMATED METHOD 09/01/2025 7:05 PM [facility] Blood, Urine Negative Negative LAB URINALYSIS - AUTOMATED METHOD 09/01/2025 7:05 PM [facility] RBC, Urine 4.0 0 - 4 /HPF LAB URINALYSIS - AUTOMATED METHOD 09/01/2025 7:05 PM [facility] WBC, Urine 10.0(H) 0 - 4 /HPF LAB URINALYSIS - AUTOMATED METHOD 09/01/2025 7:05 PM [facility] Squamous Epithelial, Urine 40 0 - 60 /LPF LAB URINALYSIS - AUTOMATED METHOD 09/01/2025 7:05 PM [facility] Bacteria, Urine Few(A) Negative /HPF LAB URINALYSIS - AUTOMATED METHOD 09/01/2025 7:05 PM [facility] Hyaline Casts, Urine 3.0 0 - 3 /LPF LAB URINALYSIS - AUTOMATED METHOD 09/01/2025 7:05 PM [facility] Urine Urine specimen obtained by clean catch procedure / Unknown 09/01/2025 12:29 PM EST 09/01/2025 4:48 PM EST us Hubert Henry MD LAB URINE ORDERABLES Final Re sult [facility] [address] [place] [address], * Culture urine (09/01/2025 12:29 PM EST) Culture, Urine 10,000-49,000 CFU/mL Mixed urogenital beatriz, no uropathogens present. Suggest repeat specimen if clinically indicated. 09/03/2025 10:07 AM EST [facility] Urine Urine specimen obtained by clean catch procedure / Unknown 09/01/2025 12:29 PM EST 09/01/2025 4:48 PM EST us Hubert Henry MD LAB MICROBIOLOGY - GENERAL OR DERABLES Final Result [facility] [address] [place] [address], documented in this encounter Visit Diagnoses Diagnosis Dysuria documented in this encounter Care Teams Patient Day Coordinator Relationship Specialty Start Date End Date Hubert Henry MD [address] [place] [address] PCP - General Internal Medicine 06/23/22 documented as of this encounter
== END 2025-09-05 14:23 | disposition home or self-care (01) ==
LOC: HO.HSMS 12:58
PROVIDERS: Visit Provider Physician Assistant Medical
DX: G47.19 Other hypersomnia (principal); G62.89 Other specified polyneuropathies; G25.81 Restless legs syndrome
CPT/HCPCS: 99204

== ENCOUNTER → 2025-09-05 12:57 | Outpatient (BNVA) | payer OTHER, SELFPAY | PROVIDERS: Visit Provider Physician Assistant Medical | DX: G47.19 Other hypersomnia (principal); G62.89 Other specified polyneuropathies; G25.81 Restless legs syndrome; R53.82 Chronic fatigue, unspecified | CPT/HCPCS: 99202 ==